=== PATIENT | female | born 1945 | race Caucasian/White ===

== ENCOUNTER 2017-09-16 13:00 | Outpatient (RCR) | payer MEDICARE, SELFPAY ==
--- NOTE | 2017-08-04 11:51 | HP.OTEVAL_ITS ---
Patient's Visit Information ARMANDO MACDONALD is a 71 year old F, referred to Occupational Therapy by Christiano Alcaraz MD,, with a diagnosis of intartic fx low end left rad.. Date of Evaluation: 08/03/17 Occupational Therapist: Darcy Harry, OLEGARIO/Lianet, CHT - Subjective Subjective: Pt states she suffered a fall Oct. 2 - pt had soft splint on for 2.5 weeks and followed with [facility] and returned to [facility] for care. Pt had cast removed Jul.28 and attends therapy to improve her ROM and strength. PT states she does have a high co-pay and would like to focus on a HEP. - Pain left wrist 4 Pain Intensity Range: 1, 6 - ROM Forearm: right WNL left WFL Wrist: right 70/65 left 30/25 Opposition: 7 ROM Comments: Left MCP IF60 right 90 PIP 110 left -20/80 DIP 70 left 35. left MCP MF 50 right 90 PIP 110 left -20/80 DIP 75 left 40. left MCP RF 40 right 95 PIP 110 left -15/90 DIP 80 left 35. left MCP LF 40 right 95 PIP 110 left -20/75 DIP 75 left 50 - Strength Assistant Professor Of Religion: right 55# left 5# Lateral Pinch: right 8# left trace Tripod Pinch: right 6# left trace - Edema PIP: right 5.0 left 6.3 Proximal Phalanx: right 5.8 left 3.5 - Sensation Thumb: right 3.22 right 2.83 Index: right 2.83 right 2.83 Middle: right 3.22 right 2.8 Ring: right 2.83 right 2.8 Little: right 2.83 right 3.22 - Hand/Wrist Evaluation Total Score of Pain & Functional Sections: 56 - Goals Goal:: pt will demo a increase in Left operations planner to greater than 35# to increase ind. with BADLs and IADLS. Goal:: Pt will demo a increase in left wrist flex by 20 degrees to increase her ind with BADlS by d/c. pt will demo increase in the ability to form a composite fist for pt to ind. perform dressing, meal prep tasks by d/c Goal:: pt will report pain no greater than 2/10 with use of left hand for all BADLS by D/C Goal:: pt will demo a increase in left Fine Motor skills to increase her ind. with dressing tasks by d/c Goal:: pt will demo a decrease in left hand edema by 1cm to increase pts ind. with BADLS and IADLS - Rehabilitation General Assessment: pt demo with edeam and stiff hand decreasing her ability to form a composite fist. Pt demo with limited wrist ROM and operations planner strength increasing her need of assistance with all BADLS and IADLS. Rehabilitation Potential: Good - Anticipated Interventions Anticipated Interventions: A/AAROM/PROM, Strengthening, Triggerpoint Release, Modalities - Visit Plan Frequency: 1x/Week Duration: 6 Weeks General Plan: initate PROM for wrist flex/ex- gave handouts- also on digi ROM, PROM and tendon gliding ex. pt ed. on contrast bath to decrease pts edema. pt demo understanding of HEP and will return in two weeks. will progress pts as able and will due to her high co-pay pt will be seen every 2-3 weeks to ensure she returns to PLOF TEXT: Thank you for the opportunity to evaluate your patient. For Medicare and Medicare HMO plans, please review the plan of care and approve it. It will need to be FAXED BACK to us at [phone] for Medicare purposes. Please let me know if there are questions or concerns regarding this plan of care. Physician Signature: Date:
--- NOTE | 2017-11-11 12:53 | HP.OT.NRP ---
HP - Discharge Summary - Patient Information ARMANDO MACDONALD was seen in my office for initial evaluation on 08/03/17. The following Plan of Care was established for this patient: Initial Frequency: 1x/Week Initial Duration: 6 Weeks Plan: pt having nerve conduction test next week- - Anticipated Interventions Anticipated Interventions: A/AAROM/PROM, Strengthening, Triggerpoint Release, Modalities This patient was last seen in our office 09/16/17. Pertinent comments regarding their Occupational therapy will appear below: pt was seen for 3 visits to ed. pt on a HEP to increase her wrist and digit ROM. pt had a $40 co-pay and wanted to limit her therapy sessions. I spoke with pt today she reports she is doing better- numbness/tingling are almost gone and hand is improving. pt D/C at this time with HEP At this point I will be discontinuing this patient from occupational therapy. I would be happy to see this patient again in the future if found appropriate by the physician. Thank you! Darcy Harry, OTR/L, CHT
== END 2017-09-16 19:00 | disposition home or self-care (01) ==
LOC: OT 13:00
PROVIDERS: Family Provider Family Medicine; PCP Family Medicine; Visit Provider Specialist
DX: S52.572D Other intraarticular fracture of lower end of left radius, subsequent encounter for closed fracture with routine healing (principal)
CPT/HCPCS: 97018; 97110; 97140; 97166; 97530

== ENCOUNTER → 2018-03-17 14:52 | Outpatient (CLI) | payer MEDICARE, SELFPAY ==
--- NOTE | 2018-03-17 14:55 | RAD_ITS ---
STUDY: X-RAY - ABDOMEN/PELVIS REASON FOR EXAM: Female, 72 years old. Left sided kidney stones. TECHNIQUE: 2 AP images of the abdomen and pelvis. COMPARISON: August 26, 2015 FINDINGS: There is an unremarkable bowel gas pattern. There is no demonstrated free abdominal air. The visualized liver, spleen and kidneys are grossly normal in size and morphology. There are calcified phleboliths in the pelvis. There are diffuse degenerative changes of the visualized lumbar spine. RAD/Abdomen Single View IMPRESSION: No renal calculus identified. Electronically Signed: Yanni Camarena MD at 21:43 EDT Tel , Service support ,
== END ==
PROVIDERS: Family Provider Family Medicine; PCP Family Medicine; Visit Provider Urology
DX: Z87.442 Personal history of urinary calculi (principal); R82.99 Other abnormal findings in urine
CPT/HCPCS: 74018

== ENCOUNTER → 2018-03-17 18:53 | Outpatient (CLI) | payer MEDICARE, SELFPAY | PROVIDERS: Visit Provider Urology | DX: R82.99 Other abnormal findings in urine (principal) | CPT/HCPCS: 87086; 87088 ==

== ENCOUNTER → 2018-09-20 16:26 | Outpatient (CLI) | payer MEDICARE, SELFPAY ==
[2017-05-24 14:29] VITALS: BMI 29.2
== END ==
PROVIDERS: Referring Provider Nurse Practitioner Adult Health; Visit Provider Nurse Practitioner Adult Health
DX: R31.9 Hematuria, unspecified (principal)
CPT/HCPCS: 87077; 87086; 87088; 87186

== ENCOUNTER → 2018-10-27 07:33 | Outpatient (CLI) | payer MEDICARE, SELFPAY ==
--- NOTE | 2018-10-27 07:46 | CT_ITS ---
STUDY: CT ABDOMEN AND PELVIS WITHOUT CONTRAST REASON FOR EXAM: Female, 72 years old. Left flank pain. History of kidney stones. RADIATION DOSAGE (If Supplied By Facility): CTDIvol = ( 16.03 ) mGy, DLP = ( 800.75 ) mGycm TECHNIQUE: Transaxial images were obtained from the dome of the diaphragm to the symphysis pubis without oral contrast, and without intravenous contrast. Sagittal and coronal images were reconstructed. Individualized dose optimization techniques were used for this CT. COMPARISON: Comparison is made with prior study dated July 17, 2013. FINDINGS: The visualized lung bases are unremarkable. The visualized portions of the heart are within normal limits. There is a 2.8 cm x 3 cm cyst in the superior lateral portion of the right lobe of the liver. This is unchanged. There is a solitary gallstone. Normal spleen. Normal pancreas. Normal bilateral adrenal glands. Normal right kidney. Normal left kidney. Normal visualized stomach. Normal small intestine. There are multiple colonic diverticula consistent with diverticulosis. The appendix is visualized and appears normal. There is scattered atherosclerotic calcification of the abdominal aorta, without a demonstrated aneurysm. Normal inferior vena cava. There is borderline retroperitoneal lymphadenopathy with enlarged nodes no greater than 10mm in the short axis diameter. Normal urinary bladder. Normal abdominal wall. There are diffuse degenerative changes of the visualized lumbar spine. CT/Abdomen/Pelvis without Cont IMPRESSION: Stable cyst in the right lobe of the liver. Solitary gallstone. This is unchanged. Sigmoid diverticulosis. Electronically Signed: Jesus Billy, at 15:52 EST , Service support ,
== END ==
PROVIDERS: Family Provider Family Medicine; PCP Family Medicine; Referring Provider Nurse Practitioner Adult Health; Visit Provider Nurse Practitioner Adult Health
DX: R31.9 Hematuria, unspecified (principal)
CPT/HCPCS: 74176

== ENCOUNTER → 2018-12-26 17:19 | Outpatient (CLI) | payer MEDICARE, SELFPAY ==
[2017-05-24 14:29] VITALS: BMI 29.2
== END ==
PROVIDERS: Family Provider Family Medicine; PCP Family Medicine; Referring Provider Urology; Visit Provider Urology
DX: R31.9 Hematuria, unspecified (principal)
CPT/HCPCS: 87086; 87088

== ENCOUNTER → 2020-05-23 | Outpatient (CLI) | payer MEDICARE, SELFPAY ==
[2017-05-24 14:29] VITALS: BMI 29.2
== END | disposition home or self-care (01) ==
LOC: LABSPEC 15:39
PROVIDERS: PCP Family Medicine; Referring Provider Urology; Visit Provider Urology
DX: R31.29 Other microscopic hematuria (principal)
CPT/HCPCS: 87077; 87086; 87088; 87186

== ENCOUNTER → 2020-08-06 11:49 | Outpatient (CLI) | payer MEDICARE, SELFPAY ==
[2017-05-24 14:29] VITALS: BMI 29.2
--- NOTE | 2020-08-06 11:55 | RAD_ITS ---
STUDY: X-RAY - ABDOMEN/PELVIS REASON FOR EXAM: Female, 74 years old. Left sided pain. History of kidney stones. TECHNIQUE: Two AP supine views of the abdomen and pelvis. COMPARISON: CT of the abdomen and pelvis, 10/27/2018. FINDINGS: Normal visualized lung bases. There is an unremarkable bowel gas pattern. There is no demonstrated free abdominal air. The visualized liver, spleen and kidneys are grossly normal in size and morphology. There is a vague rounded calcific density in right upper quadrant thought to correlate with the gallstone seen on CT. There is no evidence of renal or ureteral calculi. Stable left-sided phleboliths. Stable degenerative changes of the lumbar spine. RAD/Abdomen Single View IMPRESSION: 1. No evidence of renal calculi or other acute intra-abdominal process. 2. Stable gallstone. Electronically Signed: Cole Campos DO at 17:33 EST Tel [phone], Service support ,
== END ==
PROVIDERS: PCP Family Medicine; Referring Provider Nurse Practitioner Adult Health; Visit Provider Nurse Practitioner Adult Health
DX: N20.0 Calculus of kidney (principal); N30.21 Other chronic cystitis with hematuria
CPT/HCPCS: 74018

== ENCOUNTER → 2022-05-22 | Outpatient (CLI) | payer MEDICARE, SELFPAY ==
--- NOTE | 2022-05-22 07:30 | CT_ITS ---
STUDY: CT LEFTLOWER EXTREMITY WITHOUT CONTRAST REASON FOR EXAM: Female, 76 years old. PREOP left knee surgical planning, osteoarthritis. RADIATION DOSAGE (If Supplied By Facility): CTDIvol = ( 19.18 ) mGy, DLP = ( 1218.02 ) mGycm TECHNIQUE: Thin section transaxial imaging of the ankle was obtained, with sagittal and coronal reconstructed images. Individualized dose optimization techniques were used for this CT. COMPARISON: None. Hip findings: Normal femoral head, neck, intertrochanteric region and visualized proximal femur. Normal acetabulum. Normal hip joint. Normal visualized superior and inferior pubic rami and ischial tuberosities. Moderate to severe degenerative narrowing of the pubic symphysis with osteoarthritic changes. Normal visualized iliac wing, sacroiliac joint, and sacral ala. Rectosigmoid diverticulosis partially visualized in the intrapelvic region. There are no demonstrated fractures of the left lower extremity. There is no evidence of avascular necrosis. Knee findings: There is severe narrowing in the medial compartment and moderate secondary osteoarthritis and peripheral bulky osteophyte formation. Mild narrowing and peripheral osteophyte formation is seen in the lateral compartment. There is moderate to severe narrowing of the patellofemoral articulation as well with bulky osteophytes on both sides of the articulation. A small knee joint effusion is present. A small loose body is also seen in the suprapatellar region of the joint space. Normal proximal tibiofibular articulation. The quadriceps tendon is grossly normal. The patellar tendon is grossly normal. Normal Hoffa''s fat pad. The soft tissues are unremarkable. Ankle findings: Normal visualized distal tibia and fibula. Normal tibiotalar articulation and talar dome. Normal talus, calcaneus, navicular and cuboid tarsal bones. Normal subtalar, talonavicular and calcaneocuboid articulations. Small plantar calcaneal spur noted. Normal navicular-cuneiform, cuneiform tarsal bones and intercuneiform articulations. Normal tarsometatarsal articulations and visualized metatarsi. The soft tissue structures are grossly normal. CT/Extremity Lower without Contra IMPRESSION: 1. Severe DJD in the medial compartment of the knee 2. Moderate DJD of the patellofemoral compartment 3. There are no demonstrated fractures of the left lower extremity. There is no evidence of avascular necrosis. Electronically Signed: Gilberto Yates MD at 10:54 EDT ,
== END | disposition home or self-care (01) ==
LOC: CT 07:28
PROVIDERS: PCP Family Medicine; Referring Provider Specialist; Visit Provider Specialist
DX: M17.32 Unilateral post-traumatic osteoarthritis, left knee (principal); M25.562 Pain in left knee
CPT/HCPCS: 73700

== ENCOUNTER 2022-06-03 06:03 | Day surgery (SDC) | payer MEDICARE, SELFPAY ==
--- NOTE | 2022-05-18 22:00 | PCM.HP.BLA ---
History and Physical History and Physical [facility], [place] Patient Name: Irasema Brink : 1945 From:? ISABEL ANTONY PA-C? DATE OF SURGERY:? 06/03/2022 SCHEDULED PROCEDURE: left total knee arthroplasty HISTORY OF PRESENT ILLNESS: Preoperative history and physical exam was performed on May 18, 2022.? This is a 76-year-old female who has had ongoing pain since 2018 with her left knee.? Patient's pain has been intermittent, aching, sharp, stabbing.? She has had previous meniscus tear treated with arthroscopic surgery in 2005.? She has increased pain with going up and down stairs, sitting, walking.? She has difficulty with walking on uneven surfaces.? Patient has noted difficulty with accomplishing activities of daily living including shopping secondary to the pain.? She has tripped/stumbled due to the knee pain.? She feels unsafe standing on ladders.? Patient has popping sensation in the knee.? She has tried previous rest, ice, heat, elevation with minimal relief.? She has tried previous Visco supplementation injection with relief in 2018.? She has attempted [id number] nonsteroidal anti-inflammatories including ibuprofen with some relief.? She has attempted knee sleeve without relief.? She has severe tricompartmental osteoarthritis with bony erosions on x-ray.? After failing conservative measures and discussing all treatment options, the patient does wish to proceed with a left total knee arthroplasty.? We are obtaining surgical clearance from the primary care provider Dr. Nicholas Alcaraz.? She currently denies any chest pain, short of breath, fevers chills or recent infections.? Patient has medical history pertinent for hypertension.? Patient denies previous history of DVT or pulmonary embolism.? Patient does have ampicillin listed allergy and we will undergo serum penicillin allergy testing preoperatively. REVIEW OF SYSTEMS: Review Of Systems: Constitutional: Reports difficulty sleepingDenies change in appetite, fever,or weight change. Cardiovasular: Reports heart murmur, but denies chest pain and irregular heartbeat. Respiratory: Denies cough, pneumonia, shortness of breath, tuberculosis and wheezing. Gastrointestinal: Denies constipation, diarrhea, heartburn, nausea, rectal itching, bloody stools and vomiting. Genitourinary: Denies incontinence. Musculoskeletal: Denies leg swelling, pain, trouble walking and weakness. Skin: Denies Raynaud's, history of shingles and tattoo. Neurological: Denies ambulatory dysfunction, dizziness, numbness/tingling and tremor. Psychiatric: Reports anxiety, but denies insomnia and stress. Hematologic/Lymphatic: Denies anemia, bleeding/bruising tendency and past transfusion. Reviewed, no changes. PAST MEDICAL HISTORY: Advance Care Plan: Other Directive, LIVING WILL Effective Date: 06/27/2018 Past Medical History: Medical Problems: High Blood Pressure, Hypercholesterolemia, Kidney Stones Accidents: LT Wrist FX - (05/2017) Surgical Hx: Colon Resection - (2013) Kidney Stones - 2001 & 2013 Cataract - (2015) ALSO 2020 LT Knee Arthroscopy - (2004) colonoscopy - 2014,2018,2021 Anesthesia Complications: None Assistive Devices: Hearing Aid Reviewed and updated. SOCIAL HISTORY: Social History: Marital: .Occupation: Retired.Work Status: Retired.Hand Dominance: Right-handed. Personal Habits:? Cigarette Use: Never Smoked Cigarettes.Smokeless Tobacco: Never Used Smokeless Tobacco.E-Cigarette Use: Never used.Alcohol: Denies use.Drug Use: Denies Use.Enjoy Exercising: Exercises 1-3 x/month. Reviewed, no changes. VITALS: Ht: 66 Wt: 183lb Wt k.009 BMI: 29.5 BP: 124/82 Pulse: 72 T: 96.4 T: 35.8C Pain Level: 1 O2SatR: 97 ALLERGIES: Prednisone Macrobid Cipro Bactrim Zocor Lipitor Lisinopril Ampicillin Hydrochlorothiazide Ampicillin? MEDICATIONS: Oxycodone HCL 5 mg 1-2 tab by mouth every 4 hours, Meloxicam 7.5 mg 1 by mouth twice a day with food, Zofran 4 mg 1-2 by mouth every 8 as needed nausea, Famotidine 20 mg 1 by mouth every day, Hydrochlorothiazide 12.5 mg mg 1 by mouth every day, Crestor 10 mg 1 by mouth every day, Aspirin 81 mg 1 by mouth every day, Calcium 1200 0695-8536 MG-Unit 1po qday, Losartan Potassium 50 mg 1po qday, Cranberry 250 mg 1po qday, Vitamin C Adult Gummies 125 mg 1po qday, Vitamin D 1000 Unit 1po qday, Zinc 50 mg 1po qday, Lorazepam 0.5 mg prn PRE-OP EXAM:? General appearance:NORMAL? ? ? Other: Eyes: Conjunctivae and lids: NORMAL? Pupils: ERR Ears, Nose, Mouth, and Throat: NORMAL? Other: Inspection of lips, teeth and gums: NORMAL? ?Other: Neck: Examination of neck: no masses noted. Respiratory: Assessment of respiratory effort: NORMAL? ?Other: ?Auscultation of lungs: clear to auscultation no wheezes, rhonchi or rales. Cardiovascular:? Auscultation of heart: regular rate and rhythm, no murmurs, gallops or rubs. PHYSICAL EXAMINATION: Patient does walk with an antalgic gait.? Left knee is without erythema or signs of infection.? Patient has mild effusion.? There is tenderness to palpation along the medial joint line.? Has varus deformity which only partially correctable.? Range of motion: Lacks 5 full extension to approximately 110 flexion with crepitus and increased pain.? Stable to anterior/posterior drawer exam. IMAGING STUDIES: Previous x-rays of the left knee reveal varus alignment with medial joint space narrowing, subchondral sclerosis, osteophyte formation consistent with severe stage IV tricompartmental osteoarthritis with bony erosions. IMPRESSION: 1.? Severe right knee osteoarthritis with varus deformity 2.? Hypertension 3.? Hypercholesterolemia 4.? History of kidney stones PLAN: I did discuss and review with the patient all treatment options including surgical versus nonsurgical options.? Patient does wish to proceed with the above-stated procedure.? Potential risks, benefits, and complications of the procedure were discussed in detail including but not limited to , infection, nerve and blood vessel damage, persistent pain, numbness, tingling, paresthesias, blood clot, pulmonary embolism, and requirement for possible further surgery.? The patient expressed full understanding and has no further questions for the doctor.? Patient does agree to proceed with the above-stated procedure and has signed the surgery consent form. We discussed the current risks associated with COVID 19.? This does include the risk of exposure while in the hospital.? Patient was reassured local hospitals have low infection rates and are taking all necessary precautions to avoid exposure to patients.? In addition, we discussed strategies that can be used to help limit exposure including those that limit the patient's time in the hospital.? Also using strategies to limit the patient's need for continued inpatient services after being discharged from the hospital.? Patient was notified that we will need to comply with any screening or testing the hospital wishes to perform or that surgery may be delayed for any positive results. This dictation was created using voice recognition software. Phonetic and/or grammatical errors may exist. ___? I have re-examined the patient.? There are no clinical changes since date of exam. ___? See progress notes for changes. ___? Dictated on admission Date: ? ? ?Time: Signature:
--- NOTE | 2022-05-22 07:34 | EKG12_ITS ---
Test Reason : PRE OP Blood Pressure : / mmHG Vent. Rate : 075 BPM Atrial Rate : 075 BPM P-R Int : 124 ms QRS Dur : 098 ms QT Int : 408 ms P-R-T Axes : 039 -41 048 degrees QTc Int : 455 ms Normal sinus rhythm Left axis deviation Septal infarct , age undetermined Abnormal ECG Confirmed by MAYO SOTO, FAUSTINO ([id number]), senior editor SUJIT DICKENS ([id number]) on 05/22/2022 10:41:21 AM Referred By: Christiano Alcaraz Confirmed By:FAUSTINO HUBER MD
[2022-05-22 08:21] LABS: Absolute Lymphocyte Count 1.92 X10^3/uL (0.83-4.51); Absolute Neutrophil Count 2.7 X10^3/uL (2.0-7.7); Basophil# 0.06 X10^3/uL; Basophil% 1.1 % (0-1); Eosinophil# 0.18 X10^3/uL; Eosinophils% 3.3 % (0-5); Hematocrit 36.7 % (37-47); Hemoglobin 11.8 g/dL (12.0-15.0); Lymphocyte # 1.92 X10^3/ul (0.83-4.51); Lymphocyte % 35.7 % (19-41); Mean Corp Hgb Conc 32.2 g/dL (32-36); Mean Corpuscular Volume 93.4 fL (81-99); Mean Platelet Vol. 9.9 fl (6.2-12.0); Monocyte# 0.52 X10^3/uL; Monocyte% 9.7 % (0-10); NRBC Flagged by Analyzer 0 % (0-5); Neutrophil # 2.68 X10^3/uL (2.7-7.7); Neutrophil % 49.8 % (47-70); Platelet Count 229 K/mm3 (150-450); RBC Distribution Width CV 13.3 % (11.6-14.6); RBC Distribution Width SD 46.1 fl (35.1-43.9); Red Blood Count 3.93 M/mm3 (4.2-5.4); White Blood Count 5.4 K/mm3 (4.4-11.0)
[2022-05-22 08:48] LABS: Anion Gap 5 (5-15); BUN 32 mg/dL (7-18); BUN/Creat Ratio 28.3 RATIO (10-20); Calcium,Total 9.6 mg/dL (8.5-10.1); Chloride 107 mmol/L (98-107); Creatinine, Serum 1.13 mg/dL (0.55-1.02); EST Glomerular Filtration Rate 50 mL/min (>60); Est Glom Filt Rate - Afr Amer 60 mL/min (>60); Glucose 103 mg/dL (74-106); Magnesium 2.1 mg/dL (1.6-2.6); Potassium 3.9 mmol/L (3.5-5.1); Sodium Level 141 mmol/L (136-145)
[2022-05-22 08:53] LABS: Albumin, Serum 3.5 g/dL (3.2-5.0)
[2022-06-03] VITALS (14 sets, daily range): BP systolic 107–188; BP diastolic 61–95; PULSE 59–94; RESP 16–18; TEMP 36.2–36.7; O2SAT 94–100; BMI 28.5
--- NOTE | 2022-06-03 | KNEE_PTH ---
PATIENT: ARMANDO MACDONALD LOC: [facility] [place] U#:[id number] AGE/SX: 76/F ROOM: RE06/03/[address]: Dr. Christiano Alcaraz MD : 1945 BED: DIS: 06/03/2022 SPEC #: [id number] RECD: 06/03/22 13:26 STATUS: DEE REBoris #: [id number] JACIEL: 06/03/22 00:[address]: Christiano Alcaraz DEPT: SURGICAL PATHOLOGY RECD BY: Sven Bryan ENTERED: 06/03/22 13:26 SP TYPE: TOTAL KNEE OTHR DR: Dr. Nicholas Alcaraz MD Tissues: Knee, NOS Procedures: Decalcification bone/plaque Surgery Specimen Level IV HEADER OPERATION: ERAS, total knee replacement robotic arm assist PRE-OP DIAGNOSIS: Varus alignment with medial joint space narrowing, subchondral sclerosis, osteophyte formation TISSUE SUBMITTED: Left knee debrided bone and tissue MICROSCOPIC DIAGNOSIS Left knee bone and tissue, total knee replacement/resection: Pieces of bone with degenerative osteoarthritic changes. A piece of cartilaginous tissue, dense fibroconnective tissue and mildly reactive synovial tissue. PERLA:nydia 06/08/2022 MICROSCOPIC DESCRIPTION Slides are reviewed. GROSS DESCRIPTION Received is one container designated left knee debrided bone and tissue. The specimen consists of multiple fragments of dumont-yellow bone measuring in aggregate 11 x 9 x 4 cm. Also in the specimen container is a piece of cartilaginous tissue measuring 6 x 0.6 x 0.6 cm. A number of bony fragments contain articular surfaces consistent with tibial plateau and femoral condyle and displaying prominent osteophyte formation, eburnation, and bone erosion. Property Disposal Manager sections are submitted in two cassettes as follows: 1 - cartilaginous tissue, 2 - bone after decalcification. / Peng 06/03/2022 TC:5 [facility]: [id number]
--- NOTE | 2022-06-03 06:50 | PCM.OPRPT ---
Report of Operation Date of Procedure: 06/03/22 Pre-Operative Diagnosis: Left knee primary osteoarthritis Post-Operative Diagnosis: Left knee primary osteoarthritis Surgery/Procedure Performed:: Left knee minimally invasive robotic assisted total knee replacement Description of Surgical Findings:: Stable knee with good patella tracking Surgeon: Christiano Alcaraz information technology associate: Pj Johnson Type of Anesthesia: Spinal Anesthesiologist: Ramsey Nichols Special Medications: 2 g Ancef, 1 g TXA at incision, 1 g TXA closure, 10 mg Decadron, joint cocktail (5 mg Duramorph, 30 mL of 0.5% Ropivicaine, 1000 units of epinephrine, 30 mg of Toradol) Specimen's removed: Bony cuts Estimated Blood Loss (mL): 50 Fluids Replaced: 700 mL crystalloid Description of Procedure: Implants used: 1. Reyna size 4 triathlon cruciate retaining distal femoral press-fit component 2. [place] size 5 press-fit tritanium tibial baseplate 3. Reyna X3 11 mm polyethylene 4. [place] X3 35 mm asymmetric patella Brief history operative indications: 76-year-old f with history of left knee osteoarthritis with radiographic findings with loss of joint space, osteophyte formation and subchondral sclerosis. Failed conservative measures as mentioned in the H&P. Discussion of total knee arthroplasty as well as risk and benefits were discussed the patient including but not limited to blood loss, DVTs, PEs, neurovascular damage, general risk of anesthesia including loss of life, and stiffness or instability were discussed with patient. Patient demonstrated understanding and was able to sign informed consent. Procedure: On the date of procedure patient's left lower extremity was marked in the preoperative area. The patient was then taken back to the operating room where the patient was placed on the table in the supine position. All bony prominences were identified a well-padded. Anesthesia assumed control of the C-spine and airway and remained controlled throughout the remainder of the procedure. A tourniquet was placed on the left upper thigh and the leg was prepped in a sterile fashion. The surgeon then scrubbed at this time .Upon reentering the room left lower extremity was draped in a standard orthopedic fashion. A timeout was then called and everyone agreed upon the side, the site, the procedure to be performed, patient's identity and antibiotics given. Esmarch bandage was used to exsanguinate the extremity and the tourniquet was placed up to 250 mmHg with the knee in flexion. A midline skin incision was made and sharp dissection was taken down through skin subcutaneous tissue and fat. The standard medial parapatellar incision was made and the patella was subluxed laterally. An Appropriate deep MCL release was done and the fat pad was resected. Our attention was then directed to the patella. The patella was everted and a flat resection was made. The knee was then flexed up in 2 femoral pins were placed inside the incision and 2 tibial pins were placed outside the incision in the medial tibia bicortically. Once this was completed the 2 checkpoints in the femur and tibia were placed. Knee was then flexed up and the bony landmarks were registered. Once this was completed knee was taken through range of motion and manually stressed allowing us to a plan for an appropriate tibial cut. The robotic arm was brought into the field sterilely and checkpoint and saw were registered. Based on the patient's deformity the tibial cut was made in 3 degrees varus. At this time the tensioner was then placed in the joint and ligament tension was checked at 90 degrees and full extension. Based on the patient's ligamentous tension appropriate adjustments were made to the operative plan and ligament releases were done. Once we were happy with our operative plan with balanced flexion and extension gaps our attention was directed to the femur. The robot was brought into the field sterilely and registered. Posterior condylar cuts, anterior chamfer cuts and anterior cuts were appropriately made for a size 4 femur. When these were completed the saws were switched out in the distal femoral and posterior chamfer cuts were made. Protecting the soft tissue throughout this time. A size 5 tibial base plate was selected. the knee was flexed to 90 degrees and the soft tissues and posterior osteophytes were removed from the joint. 40 cc of the periarticular injection was injected into the posterior medial corner of the joint. The appropriate trials were then placed on the femur and tibia. A trial polyethylene was trialed to ensure proper balancing and stability of the knee. The appropriate tibial internal rotation was then marked with a bovie. Our attention was then directed to the patella. The lug holes were drilled and the patella trial was placed. Patellar tracking was checked and deemed appropriate. Once we were happy lug holes were drilled for the femur and trial components were removed. the tibia was subluxed and pinned into place and the keel was punched and drilled appropriately. Final components were verified and opened, and cement was mixed in a vacuum. Bizzby Simplex cement was used. The wound was copiously irrigated with normal saline. When the cement was ready the components were impacted into place starting with the tibia, femur and finally cementing the patella. The trial poly component was placed and the knee was placed in full extension. All excess cement was removed in the process. Once the cement had cured the tracking, alignment and balance were verified and a size 11 mm CS polyethylene component was placed. Once the final components were placed a 3-minute dilute Betadine lavage was performed followed by an Irrisept lavage was performed and the wound was copiously irrigated with normal saline solution and the periarticular injection was given. The wound was closed in a layer hope fashion using #1 vicryl interrupted sutures for the arthrotomy, 2-0 interrupted Vicryl suture for the subcuticular layer and laurita for final skin closure. A sterile compressive dressing was then placed. The patient was then awakened from anesthesia, transferred to the rwabasso and transferred to the PACU for recovery. Post op plan DVT ppx: ASA 81mg BID, thigh high compression stockings Follow up: in office in 2 weeks for wound check PT: to start POD #0 at hospital, outpatient PT should be arranged. My physician lpn or medical assistant was a vital part of this case. He was important in appropriate retraction during the case, and protection of soft tissues during bony cuts. His intimate knowledge of the case and my steps aided in safe and expedient completion of the procedure as well as appropriate position of the leg during the case. He was also vital in assisting with closure under my direct supervision. Due to the complexity of this case robotic arm was used to assist in the surgery to improve accuracy and clinical outcomes. Complications No intraoperative complications Admit VTE Documentation VTE Present on Admission: No VTE Mechan Device Prophylaxis: SCD's and Thigh High ROBBIE Hose VTE Pharm Prophylaxis ordered?: Yes
[2022-06-03] MEDS: Lactated Ringers 1,000 ML 999 ML IV (07:03)
[2022-06-03] MEDS: Magnesium 1 GM over 15 mins IV (07:04)
[2022-06-03] MEDS: Celecoxib 200 MG Capsule 400 MG PO (07:05)
[2022-06-03] MEDS: Acetaminophen 500 MG Tablet 1000 MG PO (07:06)
[2022-06-03] MEDS: Gabapentin 600 MG Tablet PO (07:06)
[2022-06-03 07:30] LABS: Bedside Glucose 119 mg/dL (74-106)
[2022-06-03] MEDS: Lactated Ringers 1,000 ML 75 ML IV (08:42)
[2022-06-03] MEDS: Cefazolin 2 GM in 0.9% Normal Saline 100 ML IV (08:45)
[2022-06-03] MEDS: TXA 1000mg in NS100 100ml (IVPB at Incision) 660 MG IV (08:55)
[2022-06-03] MEDS: TXA 1000mg in NS100 100ml (IVPB at Closure) 660 MG IV (09:55)
[2022-06-03] MEDS: Lactated Ringers 1,000 ML 125 ML IV (10:46)
--- NOTE | 2022-06-03 10:50 | RAD_ITS ---
STUDY: X-RAY - LEFT KNEE REASON FOR EXAM: Female, 76 years old. tka -- in PACU TECHNIQUE: 2 view(s) of the knee. COMPARISON: None. FINDINGS: Normal visualized distal femur. Normal visualized proximal tibia and fibula. Normal proximal tibiofibular articulation. The patient is status post total knee replacement. There is good alignment. Postoperative soft tissue changes. RAD/Knee 1 or 2 Views IMPRESSION: Status post total knee replacement. There is good alignment. Postoperative soft tissue changes. Electronically Signed: Jesus Billy MD at 14:55 EDT ,
[2022-06-03] MEDS: Cefazolin 1 GM/50 ML BAG IV (15:00)
[2022-06-03] MEDS: Ondansetron 4 MG/2 ML Vial IV (15:38)
== END 2022-06-03 16:42 | disposition home or self-care (01) ==
LOC: SDC 06:06 → AC 06:07
PROVIDERS: Anesthesiology; PCP Family Medicine; Referring Provider Specialist; Visit Provider Specialist
PROC: 0SRD0JZ Replacement of Left Knee Joint with Synthetic Substitute, Open Approach (ICD-10-PCS; CPT 27447; principal; 2022-06-03 08:15)
DX: M17.12 Unilateral primary osteoarthritis, left knee (principal); I10 Essential (primary) hypertension; E78.00 Pure hypercholesterolemia, unspecified; Z78.0 Asymptomatic menopausal state; Z79.82 Long term (current) use of aspirin; Z79.899 Other long term (current) drug therapy; Z79.1 Long term (current) use of non-steroidal anti-inflammatories (NSAID)
CPT/HCPCS: 27447; S2900; 64445; 01402; 36415; 73560; 80048; 82040; 82962; 83735; 85025; 87081; 88305; 88311; 93005; 97162; C1776; J7120; J2405; J3475

== ENCOUNTER → 2022-09-14 | Outpatient (CLI) | payer MEDICARE, SELFPAY | END | disposition home or self-care (01) | LOC: LABSPEC 16:27 | PROVIDERS: Referring Provider Urology; Visit Provider Urology | DX: R31.9 Hematuria, unspecified (principal) | CPT/HCPCS: 87086; 87088; 87186 ==

== ENCOUNTER → 2022-09-17 | Outpatient (CLI) | payer MEDICARE, SELFPAY ==
--- NOTE | 2022-09-17 14:34 | CT_ITS ---
STUDY: CT ABDOMEN AND PELVIS WITHOUT CONTRAST REASON FOR EXAM: Female, 76 years old. GROSS HEMATURIA. Left flank pain. UTI. RADIATION DOSAGE (If Supplied By Facility): CTDIvol = ( 8.80 ) mGy, DLP = ( 441.94 ) mGycm TECHNIQUE: Transaxial images were obtained from the dome of the diaphragm to the symphysis pubis without oral contrast, and without intravenous contrast. Sagittal and coronal images were reconstructed. Individualized dose optimization techniques were used for this CT. COMPARISON: Comparison is made with prior study of 10/27/2018. FINDINGS: The visualized lung bases are unremarkable. The visualized portions of the heart are within normal limits. The previously seen cyst in the superior lateral portion of the right lobe of liver is decreased in size. It presently measures 1.2 cm. There is a 2 cm x 1.5 cm cyst in the region of the gallbladder fossa. There is a solitary gallstone. Normal spleen. Normal pancreas. Normal bilateral adrenal glands. Normal right kidney. Normal left kidney. Normal visualized stomach. Normal small intestine. There are multiple colonic diverticula consistent with diverticulosis. The appendix is visualized and appears normal. Normal abdominal aorta. Normal inferior vena cava. There is borderline retroperitoneal lymphadenopathy with enlarged nodes no greater than 10mm in the short axis diameter. Normal urinary bladder. 2 cm cyst in the left ovary. Normal abdominal wall. There are diffuse degenerative changes of the visualized lumbar spine. CT/Abdomen/Pelvis without Cont IMPRESSION: Stable examination. Electronically Signed: Jesus Billy MD at 15:31 EST ,
== END | disposition home or self-care (01) ==
LOC: CT 14:32
PROVIDERS: PCP Family Medicine; Referring Provider Urology; Visit Provider Urology
DX: R31.0 Gross hematuria (principal)
CPT/HCPCS: 74176

== ENCOUNTER → 2022-09-29 | Outpatient (CLI) | payer MEDICARE, SELFPAY | END | disposition home or self-care (01) | LOC: LABSPEC 16:43 | PROVIDERS: PCP Family Medicine; Visit Provider Urology | DX: R31.0 Gross hematuria (principal) | CPT/HCPCS: 87077; 87086; 87088; 87186 ==

== ENCOUNTER → 2023-01-12 | Outpatient (CLI) | payer MEDICARE, SELFPAY | END | disposition home or self-care (01) | LOC: LABSPEC 16:54 | PROVIDERS: PCP Family Medicine; Referring Provider Urology; Visit Provider Urology | DX: N30.00 Acute cystitis without hematuria (principal) | CPT/HCPCS: 87086; 87088; 87186 ==

== ENCOUNTER 2023-07-12 12:21 | Outpatient (CLI) | payer MEDICARE, SELFPAY | END 2023-07-12 23:59 | disposition home or self-care (01) | LOC: LABSPEC 12:23 | PROVIDERS: PCP Family Medicine; Referring Provider Nurse Practitioner; Visit Provider Nurse Practitioner | DX: N30.20 Other chronic cystitis without hematuria (principal); Z87.440 Personal history of urinary (tract) infections | CPT/HCPCS: 87077; 87086; 87088; 87186 ==

== ENCOUNTER → 2025-07-17 | Outpatient (CLI) | payer MEDICARE, SELFPAY ==
--- OUTSIDE RECORDS SUMMARY | 2025-07-17 18:30 | XMS RPT_ITS | CCD ---
Author Organization 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 Role Phone Elizabeth Rivera Unavailable Nicholas Angelo Primary Care Provider ePtey SOTO, Nicholas Pascual Primary Care Provider Petey SOTO, Nicholas Pascual Primary Care Provider Petey SOTO, Nicholas Pascual Primary Care Provider Amado Angelorell Primary Care Unavailable Palestine, Gracie Attending Unavailable Palestine, Gracie Referring Unavailable Ayse, Juan Calros Attending Unavailable Ayse, Juan Carlos Referring Unavailable Ayse, Juan Carlos Attending Unavailable Ayse, Juan Carlos Referring Unavailable Petey, Nicholas Primary Care Unavailable Petey, Nicholas Primary Care Unavailable Ayse, Juan Carlos Attending Unavailable Ayse, Juan Carlos Referring Unavailable Petey, Nicholas Primary Care Unavailable Ayse, Juan Carlos Attending Unavailable BRIDENTHAL, MELISSA Attending Unavailable PETEY, NICHOLAS Primary Care Unavailable BRIDENTHAL, MELISSA Attending Unavailable BRIDENTHAL, MELISSA Referring Unavailable PETEY, NICHOLAS Primary Care Unavailable BRIDENTHAL, MELISSA Attending Unavailable BRIDENTHAL, MELISSA Referring Unavailable PETEY, NICHOLAS Primary Care Unavailable BRIDENTHAL, MELISSA Attending Unavailable PETEY, NICHOLAS Primary Care Unavailable Allergies Allergy Classification Reported Allergen(s) Allergy Type Date of Onset Reaction(s) Facility Dihydrofolate Reductase Inhibitors (antibiotic) (1 source) Trimethoprim Drug Allergy 05-24-20 17 [facility] HMG-CoA Reductase Inhibitors (statins) (1 source) atorvastatin Drug Allergy 05-14-20 15 Other [facility] Nitrofurantoin (1 source) Nitrofurantoin Drug Allergy 05-14-20 15 Shortness of breath [facility] Penicillins (antibiotic) (1 source) Ampicillin Drug Allergy 09-01-19 20 Shortness of breath [facility] Phenylephrine (2 sources) Phenylephrine Drug Allergy 05-24-20 17 Palpitations [facility] Quinolones (antibiotic) (1 source) Ciprofloxacin Drug Allergy 05-14-20 15 Palpitations [facility] (20 sources) Ampicillin Drug Allergy 09-01-19 20 Palpitations, Shortness of breath [facility] [place] (20 sources) atorvastatin Drug Allergy 05-14-20 15 Other (See Comments), Other [facility] Work Phone: (20 sources) Ciprofloxacin Drug Allergy 05-14-20 15 Palpitations [facility] Work Phone: (7 sources) Lisinopril Drug Allergy 02-01-20 18 Other (See Comments) [facility] Work Phone: (20 sources) Nitrofurantoin Drug Allergy 05-14-20 15 Shortness Of Breath [facility] Work Phone: (7 sources) predniSONE Drug Allergy 05-14-20 15 Swelling [facility] Work Phone: (7 sources) Simvastatin Drug Allergy 05-14-20 15 Other (See Comments) [facility] Work Phone: (12 sources) Sulfamethoxazole / Trimethoprim Drug Allergy 05-14-20 15 Rash [facility] Work Phone: (12 sources) Pseudoephedrine-Harsha taminophen Propensity to adverse reactions to drug 05-14-20 15 Palpitations [facility] Work Phone: (6 sources) atorvastatin; Translations: [atorvastatin calcium] Drug Allergy 05-24-20 17 Chest tightness [facility] (6 sources) Ciprofloxacin; Translations: [ciprofloxacin HCl] Drug Allergy 05-24-20 17 heart palpitations [facility] (6 sources) Pseudoephedrine; Translations: [pseudoephedrine HCl] Drug Allergy 05-24-20 17 palpitations [facility] (5 sources) Sulfamethoxazole Drug Allergy 05-24-20 17 [facility] (20 sources) Trimethoprim Drug Allergy 05-24-20 17 [facility] (5 sources) SINUS MED; Translations: [SINUS MED] Propensity to adverse reactions 05-24-20 17 Other [facility] (20 sources) Lisinopril Propensity to adverse reactions 02-01-20 18 Other [facility] (20 sources) Phenylephrine Drug Allergy 05-24-20 17 Palpitations [facility] (20 sources) Prednisone Propensity to adverse reactions 05-14-20 15 Swelling [facility] (20 sources) Simvastatin Propensity to adverse reactions 05-14-20 15 Other [facility] (20 sources) Sulfamethoxazole Allergy to substance 05-24-20 17 Hives [facility] Work Phone: (18 sources) Phenylephrine Drug Allergy 05-24-20 17 Palpitations [facility] (1 source) Ampicillin Drug Allergy 06-03-20 [facility] (1 source) Lisinopril Drug Allergy 06-03-20 [facility] (1 source) Nitrofurantoin Drug Allergy 06-03-20 [facility] (1 source) predniSONE Drug Allergy 06-03-20 [facility] (1 source) Simvastatin Drug Allergy 06-03-20 [facility] (1 source) Sulfamethoxazole Drug Allergy 06-03-20 [facility] (1 source) Trimethoprim Drug Allergy 06-03-20 [facility] Medications Current Medications Medication Drug Class(es) Dates Sig (Normalized) Sig (Original) acetaminophen 325 mg / oxyCODONE hydrochloride 5 mg oral tablet (2 sources) Opioid Agonist Start: 02-25-2023 End: 03-02-2023 take 1 tablet by mouth every six hours as needed for pain oxyCODONE-acetami nophen (Percocet) 5-325 MG tablet Indications: Benign neoplasm of colon, unspecified Take 1 tablet by mouth every 6 hours as needed for severe pain (7-10) for up to 5 days. 10 tablet 0 02/25/2023 03/02/2023 Active ascorbic acid 250 mg oral tablet (20 sources) Vitamin C Start: 05-19-2022 take 1 tablet by mouth once daily Ascorbic Acid (Vitamin C) (Vitamin C) 250 mg Tablet Active 250 MG PO DAILY May 18, 2022 11:00pm aspirin 81 mg chewable tablet (20 sources) Platelet Aggregation Inhibitor, Nonsteroidal Anti-inflammatory Drug Start: 12-31-2013 take 81 mg by mouth once daily Aspirin Active 81 MG PO DAILY@08 December 30, 2013 11:00pm calcium carbonate 1500 mg / cholecalciferol 0.01 mg oral tablet (5 sources) Vitamin D Start: 05-19-2022 take 1 tablet by mouth once daily Calcium Carbonate-Vitamin D3 (Calcium 600 + D(3)) 600 mg-10 mcg (400 unit) Tablet Active 1 TABLET PO DAILY May 18, 2022 11:00pm Calcium Carbonate-Vit D-Min (CALCIUM 1200 PO) (2 sources) Calcium Carbonate-Vit D-Min (CALCIUM 1200 PO) Indications: (two 600 mg tablests) Take 1 capsule by mouth daily 0 Active CALCIUM CARBONATE-VIT D-MIN PO (20 sources) take 1 capsule by mouth once in the morning CALCIUM CARBONATE-VIT D-MIN PO Take 1 capsule by mouth in the morning. Active take 1 capsule by mo uth once in the morning CALCIUM CARBONATE-VIT D-MIN PO Take 1 capsule by mouth in the morning. 0 Active cephalexin 500 mg oral capsule (1 source) Cephalosporin Antibacterial Start: 08-26-2022 End: 09-02-2022 cephalexin (Keflex) 500 MG capsule Indications: Acute cystitis without hematuria Take 1 capsule (500 mg) by mouth in the morning and 1 capsule (500 mg) at noon and 1 capsule (500 mg) in the evening and 1 capsule (500 mg) before bedtime. Do all this for 7 days. 28 capsule 0 08/26/2022 09/02/2022 Active cholecalciferol 0.025 mg oral tablet (5 sources) Vitamin D Start: 05-19-2022 take 1 tablet by mouth once daily Cholecalciferol (Vitamin D3) (Vitamin D3) 25 mcg (1,000 unit) Tablet Active 25 MCG PO DAILY May 18, 2022 11:00pm Cranberry preparation (5 sources) Non-Standardized Food Allergenic Extract, Non-Standardized Plant Allergenic Extract Start: 05-19-2022 take 4200 mg by mouth once daily Cranberry Active 4200 MG PO DAILY May 18, 2022 11:00pm administer with a meal Start: 05-19-2022 take 4200 mg by mout h once daily Cranberry Active 4200 MG PO DAILY May 19, 2022 12:00am administer with a meal Cranberry-Cholecalciferol 42 00-500 MG-UNIT CAPS (2 sources) Cranberry-Cholec alciferol 4200-500 MG-UNIT CAPS Take by mouth 0 Active Cranberry-Cholecalciferol 42 00-500 MG-UNIT capsule (20 sources) Cranberry-Cholec alciferol 4200-500 MG-UNIT capsule Take by mouth every morning (before breakfast). Active Cranberry-Cholec alciferol 4200-500 MG-UNIT capsule Take by mouth every morning (before breakfast). 0 Active Cranberry-Cholec alciferol 4200-500 MG-UNIT capsule Take by mouth. 0 Active Estriol (20 sources) Estriol 10 % cre am Twice a week Active Estriol 10 % cre am Twice a week 0 Active ferrous sulfate 325 mg delayed release oral tablet (14 sources) Start: 12-09-2022 End: 04-08-2023 take 1 tablet by mouth once daily ferrous sulfate 325 (65 Fe) MG EC tablet Indications: Iron deficiency TAKE 1 TABLET (325 MG) BY MOUTH DAILY. DO NOT CRUSH, CHEW, OR SPLIT. 90 tablet 1 12/09/2022 04/08/2023 Active Start: 07-20-2022 End: 11-17-2022 take 1 tablet by mouth once daily ferrous sulfate (Fe Tabs) 325 (65 Fe) MG EC tablet Indications: Iron deficiency Take 1 tablet (325 mg) by mouth daily. Do not crush, chew, or split. 30 tablet 3 07/20/2022 11/17/2022 Active Start: 06-03-2022 take 325 mg by mouth once vivek y Ferrous Sulfate Active 325 MG PO DAILY June 02, 2022 11:00pm folic acid 1 mg oral tablet (4 sources) Start: 06-03-2022 take 1 mg by mouth once daily Folic Acid Active 1 MG PO DAILY June 02, 2022 11:00pm hydroCHLOROthiazide 12.5 mg oral tablet (20 sources) Thiazide Diuretic Start: 07-07-2022 End: 06-11-2025 take 1 tablet by mouth once daily hydroCHLOROthiazide 12.5 MG tablet Indications: Essential (primary) hypertension TAKE 1 TABLET BY MOUTH EVERY DAY 90 tablet 3 06/11/2025 Active Start: 06-24-2020 take 1 tablet by gilbert th once daily hydroCHLOROthiazide (HYDRODIURIL) 12.5 MG tablet Indications: Essential hypertension TAKE 1 TABLET BY MOUTH EVERY DAY 90 tablet 1 06/24/2020 Active Start: 07-03-2019 take 1 tablet by gilbert th once daily hydrochlorothiazide (HYDRODIURIL) 12.5 MG tablet Indications: Essential hypertension TAKE 1 TABLET BY MOUTH EVERY DAY 90 tablet 1 07/03/2019 Active Start: 06-22-2014 take 12.5 mg by mout h once daily Hydrochlorothiazide Active 12.5 MG PO DAILY June 21, 2014 11:00pm LORazepam 0.5 mg oral tablet (20 sources) Benzodiazepine Start: 01-05-2023 End: 07-24-2024 take 1 tablet by mouth three times daily as needed for anxiety LORazepam (Ativan) 0.5 MG tablet Indications: Anxiety Take 1 tablet (0.5 mg) by mouth 3 times daily as needed for anxiety for up to 7 days. 21 tablet 07/17/2024 Active Start: 05-19-2022 take 1 tablet by gilbert th once daily Lorazepam (Ativan) 0.5 mg Tablet Active 0.5 MG PO DAILY May 18, 2022 11:00pm losartan potassium 50 mg oral tablet (20 sources) Angiotensin 2 Receptor Angie Start: 05-19-2022 End: 06-11-2025 take 1 tablet by mouth once daily in the morning losartan (Cozaar) 50 MG tablet Indications: Essential hypertension TAKE 1 TABLET BY MOUTH EVERY MORNING. 90 tablet 3 06/11/2025 Active Start: 06-24-2020 take 1 tablet by gilbert th once daily losartan (COZAAR) 50 MG tablet Indications: Essential hypertension TAKE 1 TABLET BY MOUTH EVERY DAY 90 tablet 1 06/24/2020 Active Start: 07-03-2019 take 1 tablet by gilbert th once daily losartan (COZAAR) 50 MG tablet Indications: Essential hypertension TAKE 1 TABLET BY MOUTH EVERY DAY 90 tablet 1 07/03/2019 Active rosuvastatin calcium 20 mg oral tablet (20 sources) HMG-CoA Reductase Inhibitor Start: 01-29-2023 End: 06-11-2025 take 1 tablet by mouth once daily rosuvastatin (Crestor) 20 MG tablet Indications: Hyperlipidemia, unspecified hyperlipidemia type TAKE 1 TABLET BY MOUTH EVERY DAY 90 tablet 3 06/11/2025 Active Start: 08-06-2022 take 1 tablet by gilbert th once daily rosuvastatin (Crestor) 20 MG tablet Indications: Hyperlipidemia, unspecified hyperlipidemia type TAKE 1 TABLET BY MOUTH EVERY DAY 90 tablet 1 08/06/2022 Active Start: 06-24-2020 take 1 tablet by gilebrt th once daily rosuvastatin (CRESTOR) 10 MG tablet Indications: Hyperlipidemia, unspecified hyperlipidemia type TAKE 1 TABLET BY MOUTH EVERY DAY 90 tablet 1 06/24/2020 Active Start: 07-03-2019 take 1 tablet by gilbert th once daily rosuvastatin (CRESTOR) 10 MG tablet Indications: Hyperlipidemia, unspecified hyperlipidemia type TAKE 1 TABLET BY MOUTH EVERY DAY 90 tablet 1 07/03/2019 Active Start: 12-31-2013 take 20 mg by mouth once daily Rosuvastatin Active 20 MG PO DAILY December 30, 2013 11:00pm Zinc (5 sources) Start: 05-19-2022 take 50 mg by mouth once daily Zinc Active 50 MG PO DAILY May 18, 2022 11:00pm Start: 05-19-2022 take 50 mg by mouth once daily Zinc Active 50 MG PO DAILY May 19, 2022 12:00am Completed/Discontinued Medications Medication Drug Class(es) Dates Sig (Normalized) Sig (Original) acetaminophen 500 mg oral tablet (2 sources) Start: 02-25-2023 End: 02-25-2023 acetaminophen (Tylenol) tablet 1,000 mg ALPRAZolam 0.25 mg disintegrating oral tablet (2 sources) Benzodiazepine Start: 02-25-2023 End: 02-25-2023 ALPRAZolam (Xanax) disintegrating tablet 0.25 mg calcium chloride 0.0014 meq/ml / potassium chloride 0.004 meq/ml / sodium chloride 0.103 meq/ml / sodium lactate 0.028 meq/ml injectable solution (2 sources) Start: 02-25-2023 End: 02-25-2023 lactated Ringer's infusion escitalopram 5 mg oral tablet (3 sources) Serotonin Reuptake Inhibitor Start: 01-12-2024 End: 02-14-2024 take 1 tablet by mouth once daily escitalopram (Lexapro) 5 MG tablet Indications: Anxiety Take 1 tablet (5 mg) by mouth daily. 30 tablet 01/12/2024 02/14/2024 Discontinued famotidine 20 mg oral tablet (2 sources) Histamine-2 Receptor Antagonist Start: 02-25-2023 End: 02-25-2023 famotidine (Pepcid) tablet 20 mg 1 ml HYDROmorphone hydrochloride 1 mg/ml cartridge (2 sources) Opioid Agonist Start: 02-25-2023 End: 02-25-2023 HYDROmorphone (Dilaudid) injection 0.5 mg ibandronic acid 150 mg oral tablet (8 sources) Bisphosphonate Start: 09-09-2022 End: 07-12-2023 take 1 tablet by mouth every 30 days in the morning ibandronate (Boniva) 150 MG tablet Take 1 tablet (150 mg) by mouth every 30 (thirty) days. Take in morning with full glass of water on an empty stomach. No food, drink, meds, or lying down for 60 minutes after. 3 tablet 3 09/09/2022 07/12/2023 Discontinued (Med list cleanup) Drug Treatment Unknown - unknown (1 source) No information available. 5 ml sodium chloride 9 mg/ml injection (2 sources) Start: 02-25-2023 End: 02-25-2023 sodium chloride 0.9% (NS) flush 5-40 mL Sutab [id number] MG tablet (5 sources) Start: 10-27-2023 End: 07-17-2024 Sutab [id number] MG tablet 10/27/2023 07/17/2024 Discontinued (Med list cleanup) Start: 10-27-2023 Sutab [id number] MG tablet 10/27/2023 Active zinc gluconate 50 mg oral tablet (4 sources) End: 07-12-2023 take 1 tablet by mouth once daily zinc gluconate 50 MG tablet Take 50 mg by mouth daily. 0 07/12/2023 Discontinued (Therapy completed) Problems Active Problems Problem Classification Problem Date Documented Date Episodic/Chronic Anxiety disorders (20 sources) Anxiety; Translations: [Anxiety disorder, unspecified] Onset: 01-07-2016 01-07-2016 Chronic Disorders of lipid metabolism (20 sources) Hyperlipidemia; Translations: [Hyperlipidemia, unspecified] Onset: 05-14-2015 05-14-2015 Chronic Essential hypertension (20 sources) Essential hypertension; Translations: [Essential (primary) hypertension] Onset: 05-08-2016 05-08-2016 Chronic Nutritional deficiencies (1 source) Iron deficiency; Translations: [Iron deficiency] Episodic Osteoarthritis (20 sources) Localized, primary osteoarthritis; Translations: [Primary osteoarthritis, unspecified site] Onset: 05-25-2022 06-07-2022 Chronic Osteoporosis (20 sources) Senile osteoporosis; Translations: [Age-related osteoporosis without current pathological fracture] Onset: 01-05-2023 Chronic Other aftercare (1 source) Surgical follow-up; Translations: [Encounter for follow-up examination after completed treatment for conditions other than malignant neoplasm] 03-15-2023 Episodic Other and unspecified benign neoplasm (2 sources) Benign neoplasm of colon; Translations: [Benign neoplasm of colon, unspecified] 02-25-2023 Episodic Other nutritional; endocrine; and metabolic disorders (2 sources) Body mass index 30+ - obesity; Translations: [Obesity (BMI 30-39.9)] Onset: 07-03-2019 07-03-2019 Chronic Other nutritional; endocrine; and metabolic disorders (13 sources) Obesity caused by energy imbalance; Translations: [Class 1 obesity due to excess calories with serious comorbidity and body mass index (BMI) of 30.0 to 30.9 in adult] Onset: 07-03-2019 07-17-2024 Chronic Other screening for suspected conditions (not mental disorders or infectious disease) (1 source) No current problems or disability 05-26-2017 Residual codes; unclassified (1 source) Acquired absence of other specified parts of digestive tract; Translations: [Other postprocedural status] 03-15-2023 Episodic Urinary tract infections (1 source) Other chronic cystitis without hematuria; Translations: [Other chronic cystitis without hematuria] Onset: 07-21-2023 Chronic Past or Other Problems Problem Classification Problem Date Documented Da te Episodic/Chronic Deficiency and other anemia (20 sources) Anemia; Translations: [Anemia, unspecified] Onset: 01-05-2023 Resolved: 01-08-2025 Episodic Deficiency and other anemia (2 sources) Anemia, unspecified; Translations: [Anemia, unspecified] Onset: 01-05-2023 Episodic Genitourinary symptoms and ill-defined conditions (20 sources) Blood in urine; Translations: [Hematuria, unspecified] Onset: 09-20-2022 Resolved: 07-17-2024 07-09-2023 Episodic Mood disorders (19 sources) Mood disorders Onset: 07-09-2023 07-09-2023 Other and unspecified benign neoplasm (20 sources) Adenomatous polyp of colon ; Translations: [Benign neoplasm of colon, unspecified] Onset: 02-01-2023 02-01-2023 Episodic Other nutritional; endocrine; and metabolic disorders (20 sources) Body mass index 25-29 - overweight; Translations: [Overweight] Onset: 07-03-2019 07-08-2022 Episodic Other screening for suspected conditions (not mental disorders or infectious disease) (20 sources) Patient encounter status; Translations: [Encounter for screening mammogram for malignant neoplasm of breast] Onset: 02-14-2024 07-12-2023 Episodic Residual codes; unclassified (2 sources) Menopause present; Translations: [Asymptomatic menopausal state] Episodic Urinary tract infections (20 sources) Acute cystitis; Translations: [Acute cystitis without hematuria] Onset: 08-26-2022 Resolved: 01-05-2023 08-26-2022 Episodic Results Test Name Value Interpretation Reference Range Facility 36on 06-11-2025 36 Rx sent. Follow up a s scheduled. [facility] DEXA BONE DENSITY AXIAL SKEL ETONo 01-17-2025 DEXA BONE DENSITY AXIAL SKELETON Patient Name: IRASEMA MACDONALD : 1945 Exam Date/Time: 01/17/2025 07:49 Procedure: DEXA BONE DENSITY AXIAL SKELETON Ordering Provider: ROY REBECCA Reason For Exam: osteoporosis DEXA BONE DENSITOMETRY: CLINICAL INDICATION: Osteoporosis screening COMPARISON: 09/08/2022 TECHNIQUE: Quantitative bone mineral densitometry of the hip and lumbar spine was performed with a dual energy x-ray observed absorptiometry device - HoloG5 Horizon W. Regions of interest were obtained through the left proximal femur and compared to the normal value of the young adult. Regions of interest were also obtained through the lumbar vertebrae with an average value determined and compared with the young adult. The measured bone density minus the bone density of the young normal reference divided by the reference standard deviation is expressed as the T score. Using the same formula adjusting the reference density and standard deviation for age and race determines the Z score. According to World Health Organization criteria: T-score of -1.0 or higher is normal. T-score between -1.0 and -2.5 is low bone density or osteopenia. T-score of -2.5 or lower is abnormally low, compatible with osteoporosis. T-score of -2.5 or less plus fragility fracture indicates "severe osteoporosis." FINDINGS: Spine: L1-L4 Density 1.12 g/cm2. T-score: 0.6 Z-score: 3.2 Comparison from prior examination:4.6 percent increase in BMD Hip: Femoral neck Density: 0.50 g/cm2. T-score: -3.1 Z-score: -1.0 Hip: Total hip Density: 0.71 g/cm2. T-score: -1.9 Z-score: 0.0 Comparison from prior examination:1.8 percent decrease in BMD IMPRESSION: Osteoporosis FRACTURE RISK: The estimated 10 year risk for a major osteoporosis-related fracture is 32 % and risk for hip fracture is 12 % (FRAX web version 3.08). The current National Osteoporosis Foundation Guide recommends pharmacologic treatment for patients with FRAX 10-year risk scores of > 20% for major osteoporotic fracture or > 3% for hip fracture, to reduce their fracture risk. FOLLOW-UP RECOMMENDATIONS: Patients with osteoporosis or or at high risk for fracture should have follow-up bone density tests. For Medicare patients, routine testing is allowed every 2 years. Patients who have low bone mass (T score -2.0 to -2.49), who are currently on treatment for low bone mass, or having risk factors for accelerated bone loss (glucocorticoids, aromatase inhibitors, etc.), consider repeat DXA in 1-2 years. Patients with osteopenia and no risk factors may consider follow-up every 3-5 years. Report Dictated on Electronically Signed By: Jalen Orellana MD Electronically Signed Date/Time: 01/17/2025 12:21 PM EDT [facility] DXA Skeletal system.axial Vi ews for bone densityon 01-17-2025 Osteoporosis FRACTURE RISK: The estimated 10 year risk for a major osteoporosis-related fracture is 32 % and risk for hip fracture is 12 % (FRAX web version 3.08). The current National Osteoporosis Foundation Guide recommends pharmacologic treatment for patients with FRAX 10-year risk scores of > 20% for major osteoporotic fracture or > 3% for hip fracture, to reduce their fracture risk. FOLLOW-UP RECOMMENDATIONS: Patients with osteoporosis or or at high risk for fracture should have follow-up bone density tests. For Medicare patients, routine testing is allowed every 2 years. Patients who have low bone mass (T score -2.0 to -2.49), who are currently on treatment for low bone mass, or having risk factors for accelerated bone loss (glucocorticoids, aromatase inhibitors, etc.), consider repeat DXA in 1-2 years. Patients with osteopenia and no risk factors may consider follow-up every 3-5 years. Report Dictated on Electronically Signed By: Jalen Orellana MD Electronically Signed Date/Time: 01/17/2025 12:21 PM [facility] 1945 [id number] Exam Date/Time: 01/17/2025 07:49 Procedure: DEXA BONE DENSITY AXIAL SKELETON Ordering Provider: ROY REBECCA Reason For Exam: osteoporosis DEXA BONE DENSITOMETRY: CLINICAL INDICATION: Osteoporosis screening COMPARISON: 09/08/2022 TECHNIQUE: Quantitative bone mineral densitometry of the hip and lumbar spine was performed with a dual energy x-ray observed absorptiometry device - HoloG5 Horizon W. Regions of interest were obtained through the left proximal femur and compared to the normal value of the young adult. Regions of interest were also obtained through the lumbar vertebrae with an average value determined and compared with the young adult. The measured bone density minus the bone density of the young normal reference divided by the reference standard deviation is expressed as the T score. Using the same formula adjusting the reference density and standard deviation for age and race determines the Z score. According to World Health Organization criteria: T-score of -1.0 or higher is normal. T-score between -1.0 and -2.5 is low bone density or osteopenia. T-score of -2.5 or lower is abnormally low, compatible with osteoporosis. T-score of -2.5 or less plus fragility fracture indicates "severe osteoporosis." FINDINGS: Spine: L1-L4 Density 1.12 g/cm2. T-score: 0.6 Z-score: 3.2 Comparison from prior examination:4.6 percent increase in BMD Hip: Femoral neck Density: 0.50 g/cm2. T-score: -3.1 Z-score: -1.0 Hip: Total hip Density: 0.71 g/cm2. T-score: -1.9 Z-score: 0.0 Comparison from prior examination:1.8 percent decrease in BMD [facility] Jalen Orellana MD - 01/17/2025 [facility] Name: [facility] 1945 [id number] Exam Date/Time: 01/17/2025 07:49 Procedure: DEXA BONE DENSITY AXIAL SKELETON Ordering Provider: ROY REBECCA Reason For Exam: osteoporosis DEXA BONE DENSITOMETRY: CLINICAL INDICATION: Osteoporosis screening COMPARISON: 09/08/2022 TECHNIQUE: Quantitative bone mineral densitometry of the hip and lumbar spine was performed with a dual energy x-ray observed absorptiometry device - HoloG5 Horizon W. Regions of interest were obtained through the left proximal femur and compared to the normal value of the young adult. Regions of interest were also obtained through the lumbar vertebrae with an average value determined and compared with the young adult. The measured bone density minus the bone density of the young normal reference divided by the reference standard deviation is expressed as the T score. Using the same formula adjusting the reference density and standard deviation for age and race determines the Z score. According to World Health Organization criteria: T-score of -1.0 or higher is normal. T-score between -1.0 and -2.5 is low bone density or osteopenia. T-score of -2.5 or lower is abnormally low, compatible with osteoporosis. T-score of -2.5 or less plus fragility fracture indicates "severe osteoporosis." FINDINGS: Spine: L1-L4 Density 1.12 g/cm2. T-score: 0.6 Z-score: 3.2 Comparison from prior examination:4.6 percent increase in BMD Hip: Femoral neck Density: 0.50 g/cm2. T-score: -3.1 Z-score: -1.0 Hip: Total hip Density: 0.71 g/cm2. T-score: -1.9 Z-score: 0.0 Comparison from prior examination:1.8 percent decrease in BMD IMPRESSION: Osteoporosis FRACTURE RISK: The estimated 10 year risk for a major osteoporosis-related fracture is 32 % and risk for hip fracture is 12 % (FRAX web version 3.08). The current National Osteoporosis Foundation Guide recommends pharmacologic treatment for patients with FRAX 10-year risk scores of > 20% for major osteoporotic fracture or > 3% for hip fracture, to reduce their fracture risk. FOLLOW-UP RECOMMENDATIONS: Patients with osteoporosis or or at high risk for fracture should have follow-up bone density tests. For Medicare patients, routine testing is allowed every 2 years. Patients who have low bone mass (T score -2.0 to -2.49), who are currently on treatment for low bone mass, or having risk factors for accelerated bone loss (glucocorticoids, aromatase inhibitors, etc.), consider repeat DXA in 1-2 years. Patients with osteopenia and no risk factors may consider follow-up every 3-5 years. Report Dictated on Electronically Signed By: Jalen Orellana MD Electronically Signed Date/Time: 01/17/2025 12:21 PM EDT [facility] Radiology Study observation (narrative) [facility] DXA Skeletal system.axial Vi ews for bone densityOrdered By: Jalen Orellana on 01-17-2025 [facility] Work Phone: Basic metabolic 1998 panelon 01-09-2025 Anion gap [Moles/Vol] 11 mmol/L [facility] Calcium [Mass/Vol] 9.7 mg/dL 8.6 - 10. 4 mg/dL [facility] Chloride [Moles/Vol] 103 mmol/L 98 - 11 0 mmol/L [facility] CO2 [Moles/Vol] 26 mmol/L 20 - 32 mmol/L [facility] Creatinine [Mass/Vol] 1.29 mg/dL High 0.60 - 1.00 mg/dL [facility] GFR/1.73 sq M.predicted among non-blacks MDRD (S/P/Bld) [Vol rate/Area] 43 mL/min/{1.73_m2} Low > OR = 60 mL/min/1.73m 2 [facility] Glucose [Mass/Vol] 96 mg/dL 65 - 99 mg/dL [facility] Comment on above: Fasting reference interval Interpretation and review of laboratory results Abnormal [facility] Potassium [Moles/Vol] 4.1 mmol/L 3.5 - 5.3 mmol/L [facility] Sodium [Moles/Vol] 140 mmol/L 135 - 146 mmol/L [facility] Urea nitrogen [Mass/Vol] 34 mg/dL High 7 - 25 mg/dL [facility] Urea nitrogen/Creatinine [Mass ratio] 26 mg/mg High [facility] 29on 01-08-2025 29 Addended by: MELISSA ROY on: 01/10/2025 08:31 AM Modules accepted: Level of Service [facility] 37on 01-08-2025 37 Call to schedule Bon e density screening--[facility] Scheduling at [phone] [facility] Office Visiton 01-08-2025 Follow-up visit [id number] Irasema Macdonald 1945 F Date Provider Department Center 01/08/2025 [id number] ROY [facility] Family History Problem Relation Age of Onset Diabetes Mother High Blood Pressure Mother Colon cancer Mother 89 High Blood Pressure Father Substance Abuse Father Breast cancer Sister 50 Stomach cancer Father's Brother 48 Family Status - Relation Status Age at Mother Father Sister Alive Father's Brother Alive Level of Service:13021 MS OFFICE/OUTPATIENT ESTABLISHED MOD MDM 30 MIN Reason for Visit and Comments: Health Maintenance [872] Medication Check [[id number]] - ?Medicare Advantage Annual Wellness Visit-SCHEDULED 07/18/25 ?Bone Density Scan-pended - SDOH/PHQ/ANAHY--COMPLETED -SENT VIA [facility] Progress Noteon 01-08-2025 Progress Note Check renal functioning. Maintain good blood pressure control. [facility] Progress Note Continue calcium and vitamin D. Patient currently not taking Boniva. Repeat Dexa [facility] Progress Note Controlled. Blood pressure 133/82. Continue losartan 50 mg daily and hydrochlorothiazide 12.5 mg daily [facility] Progress Note Controlled. Continue rosuvastatin 20 mg daily [facility] Progress Note 01/08/2025 Irasema Hatch [place] (: 1945) is a 79 y.o. female , Established patient, here for evaluation of the following chief complaint(s): Health Maintenance and Medication Check (? Medicare Advantage Annual Wellness Visit-SCHEDULED 07/18/25/? Bone Density Scan-pended/- SDOH/PHQ/ANAHY--COMPLETED -SENT VIA [facility]) ASSESSMENT/PLAN: 1. Essential (primary) hypertension Assessment & Plan: Controlled. Blood pressure 133/82. Continue losartan 50 mg daily and hydrochlorothiazide 12.5 mg daily Orders: - Basic metabolic panel 2. Mixed hyperlipidemia Assessment & Plan: Controlled. Continue rosuvastatin 20 mg daily Orders: - Basic metabolic panel 3. Decreased calculated glomerular filtration rate (GFR) Assessment & Plan: Check renal functioning. Maintain good blood pressure control. Orders: - Basic metabolic panel 4. Age-related osteoporosis without current pathological fracture Assessment & Plan: Continue calcium and vitamin D. Patient currently not taking Boniva. Repeat Dexa Orders: - DEXA bone density peripheral Follow up for with primary care provider as scheduled. SUBJECTIVE/OBJECTIVE: HPI - Irasema Macdonald (: 1945) is a 79 y.o. female , Established patient, here for the evaluation of the following chief complaint(s): Health Maintenance and Medication Check (? Medicare Advantage Annual Wellness Visit-SCHEDULED 07/18/25/? Bone Density Scan-pended/- SDOH/PHQ/ANAHY--COMPLETED -SENT VIA [facility]) Presents for med check. Reports everything is going well at home. Denies any acute concerns or complaints today. Has been working a lot out in the yard at home. Blood pressures have been good at home. Denies any AE of medication. Takes losartan and hydrochlorothiazide Hyperlipidemia- denies any AE of rosuvastatin. Will be due for cholesterol check next visit. Anxiety- reports pretty well controlled. Will occasionally need to take ativan. Osteoporosis- is due for her dexa scan this year. Is taking calcium and vit d. Decreased gfr- will check kidney functioning today. Has been stable. Current Medications[1] Review of Systems Constitutional: Negative. HENT: Negative. Respiratory: Negative. Cardiovascular: Negative. Gastrointestinal: Negative. Genitourinary: Negative. Neurological: Negative. Psychiatric/Behavioral: Negative for agitation, behavioral problems, decreased concentration, dysphoric mood, self-injury, sleep disturbance and suicidal ideas. The patient is nervous/anxious. Vitals: 01/08/25 0833 BP: 133/82 Pulse: 81 Resp: 20 Temp: 36.1 ?C (96.9 ?F) TempSrc: Infrared SpO2: 97% Weight: 186 lb (84.4 kg) Height: 5' 6" (1.676 m) Physical Exam Vitals reviewed. Constitutional: General: She is not in acute distress. Appearance: Normal appearance. She is not ill-appearing. HENT: Head: Normocephalic and atraumatic. Mouth/Throat: Mouth: Mucous membranes are moist. Pharynx: Oropharynx is clear. No posterior oropharyngeal erythema. Eyes: Conjunctiva/sclera: Conjunctivae normal. Neck: Vascular: No carotid bruit. Cardiovascular: Rate and Rhythm: Normal rate and regular rhythm. Pulses: Normal pulses. Heart sounds: Normal heart sounds. Pulmonary: Effort: Pulmonary effort is normal. Breath sounds: Normal breath sounds. Musculoskeletal: Right lower leg: No edema. Left lower leg: No edema. Lymphadenopathy: Cervical: No cervical adenopathy. Neurological: Mental Status: She is alert and oriented to person, place, and time. Psychiatric: Mood and Affect: Mood normal. Behavior: Behavior normal. Thought Content: Thought content normal. An electronic signature was used to authenticate this note. Melissa Roy APRN - [place] 01/08/2025 9:12 AM [1] Current Outpatient Medications Medication Sig Dispense Refill ascorbic acid (Vitamin C) 250 MG tablet Take 250 mg by mouth in the morning. aspirin 81 MG chewable tablet Chew 81 mg every morning (before breakfast). CALCIUM CARBONATE-VIT D-MIN PO Take 1 capsule by mouth in the morning. Cranberry-Cholecalcifer ol 4200-500 MG-UNIT capsule Take by mouth every morning (before breakfast). Estriol 10 % cream Twice a week hydroCHLOROthiazide 12.5 MG tablet TAKE 1 TABLET BY MOUTH EVERY DAY 90 tablet 1 LORazepam (Ativan) 0.5 MG tablet Take 1 tablet (0.5 mg) by mouth 3 times daily as needed for anxiety for up to 7 days. 21 tablet 0 losartan (Cozaar) 50 MG tablet TAKE 1 TABLET BY MOUTH EVERY MORNING. 90 tablet 1 rosuvastatin (Crestor) 20 MG tablet TAKE 1 TABLET BY MOUTH EVERY DAY 90 tablet 1 No current facility-administered medications for this visit. [facility] Progress Note Patient was identifi ed by name and Date of . Health Maintenance Due Topic Medicare Advantage Annual Wellness Visit-SCHEDULED 07/18/25 Bone Density Scan-pended SDOH/PHQ/ANAHY--COMPLETED -SENT VIA [facility] 36on 12-18-2024 36 Reviewed chart. Refi ll appropriate. RX sent. [facility] 36 Prescription Request : : HYDROCHLOROTHIAZIDE 12.5 MG TB ROSUVASTATIN CALCIUM 20 MG TAB : LOSARTAN POTASSIUM 50 MG TAB Last medication check: 07/17/24 Last physical exam: 07/17/24 Next scheduled appointment: 01/08/25 Last date of refill on this medication : HYDROCHLOROTHIAZIDE - 06/27/24 ( qty90 refill 1) ROSUVASTATIN - 06/27/24 ( qty 90 refill 1) : LOSARTAN 06/27/24 (qty 90 refill 1) [facility] DBT Breast - bilateral lettye maninder 09-11-2024 No mammographic evidence of malignancy. ASSESSMENT: Category 1 Negative RECOMMENDATION: Routine screening mammogram in 1 year. Bilateral CANCER RISK ASSESSMENT: This risk assessment is based on patient provided information collected in a risk survey taken at the time of this examination. LIFETIME BREAST CANCER RISK: Manuela 8: 4.23% - If greater than or equal to 20%, consider annual mammogram and annual screening Breast MRI or follow up in high risk clinic. Is the patient at elevated risk based on the HBOC criteria? Yes (Hereditary Breast and Ovarian Cancer) - If Yes, consider genetic counseling and testing with high risk follow up Is the patient at elevated risk based on the Milian Syndrome criteria? No - If Yes, consider genetic counseling and testing with high risk follow up. Report Dictated on Electronically Signed By: Seferino Kulkarni MD Electronically Signed Date/Time: 09/11/2024 11:57 AM [facility] Patient Name: IRASEMA MACDONALD : 1945 Exam Date/Time: 09/11/2024 10:34 Procedure: BI MAMMOGRAM SCREENING TOMOSYNTHESIS BILATERAL Ordering Provider: ROY REBECCA Reason For Exam: This exam was performed at [address] [facility] [id number] RISK ALERT: The Cancer Risk Assessment scores below the recommendation of this report contain an outcome above the normal risk range. PATIENT CANCER HISTORY: No Personal History of Cancer FAMILY CANCER HISTORY: Mother Colon Cancer age 89 Sister Breast Cancer age 50 Paternal Uncle Stomach Cancer age 48 Image views: 2D Bilateral CC and MLO views were acquired. 3D Bilateral CC and MLO views were acquired. Images were reviewed with CAD. Markings on images: BB's = Nipples; skin lesions Open [place] = Palpable Line = Scar COMPARISON: 2023; 2021 TISSUE DENSITY: BIRADS B - There are scattered areas of fibroglandular density. FINDINGS: No suspicious masses, architectural distortions or suspiciously clustered microcalcifications are identified. There are no significant changes when compared with prior studies. [facility] Seferino Kulkarni MD - 09/11/2024 [facility] Name: [facility]ALD : 1945 [id number] Exam Date/Time: 09/11/2024 10:34 Procedure: BI MAMMOGRAM SCREENING TOMOSYNTHESIS BILATERAL Ordering Provider: ROY REBECCA Reason For Exam: This exam was performed at [address] [facility] [id number] RISK ALERT: The Cancer Risk Assessment scores below the recommendation of this report contain an outcome above the normal risk range. PATIENT CANCER HISTORY: No Personal History of Cancer FAMILY CANCER HISTORY: Mother Colon Cancer age 89 Sister Breast Cancer age 50 Paternal Uncle Stomach Cancer age 48 Image views: 2D Bilateral CC and MLO views were acquired. 3D Bilateral CC and MLO views were acquired. Images were reviewed with CAD. Markings on images: BB's = Nipples; skin lesions Open [place] = Palpable Line = Scar COMPARISON: 2023; 2021 TISSUE DENSITY: BIRADS B - There are scattered areas of fibroglandular density. FINDINGS: No suspicious masses, architectural distortions or suspiciously clustered microcalcifications are identified. There are no significant changes when compared with prior studies. IMPRESSION: No mammographic evidence of malignancy. ASSESSMENT: Category 1 Negative RECOMMENDATION: Routine screening mammogram in 1 year. Bilateral CANCER RISK ASSESSMENT: This risk assessment is based on patient provided information collected in a risk survey taken at the time of this examination. LIFETIME BREAST CANCER RISK: [place] 8: 4.23% - If greater than or equal to 20%, consider annual mammogram and annual screening Breast MRI or follow up in high risk clinic. Is the patient at elevated risk based on the HBOC criteria? Yes (Hereditary Breast and Ovarian Cancer) - If Yes, consider genetic counseling and testing with high risk follow up Is the patient at elevated risk based on the Milian Syndrome criteria? No - If Yes, consider genetic counseling and testing with high risk follow up. Report Dictated on Electronically Signed By: Seferino Kulkarni MD Electronically Signed Date/Time: 09/11/2024 11:57 AM EST [facility] Study observation (narrative) [facility] DBT Breast - bilateral scree ningOrdered By: Seferino Kulkarni on 09-11-2024 [facility] Work Phone: 37on 07-17-2024 37 Personalized Preventative Plan for Irasema Macdonald - 07/17/2024 Medicare offers a range of preventative health benefits. Some of the tests and screenings are paid in full while others may be subject to a deductible, co-insurance, and / or copay. Some of these benefits include a comprehensive review of your medical history including lifestyle, illnesses that may run in your family, and various assessments and screenings as appropriate. After reviewing your medical record and screening and assessments performed today, your provider may have ordered immunizations, labs, imaging, and / or referrals for you. A list of these orders (if applicable) as well as your Preventative Care list are included within your After Visit Summary for your review. Other Preventative Recommendations: A preventive eye exam by an sports marketing specialist is recommended every 1-2 years to screen for glaucoma, cataracts, macular degeneration, and other eye disorders. A preventive dental visit is recommended every 6 months. Try to get at least 150 minutes of exercise per week or 10,000 steps per day on a pedometer. You need 1200-1500mg of calcium and 4682-1141 international units of vitamin D per day. It is possible to meet your calcium requirement with diet alone, but a vitamin D supplement is usually necessary to meet this goal. When exposed to the sun, use a sunscreen that protects against both UVA and UVB radiation with an SPF of 30 or greater. Reapply every 2-3 hours or after sweating, drying off with a towel, or swimming. Always wear a seat belt when traveling in a car. Always wear a helmet when riding a bicycle or a motorcycle [facility] Office Visiton 07-17-2024 Follow-up visit [id number] Irasema Macdonald 1945 F Date Provider Department Center 07/17/2024 [id number] ROY [facility] Family History Problem Relation Age of Onset Diabetes Mother High Blood Pressure Mother Colon cancer Mother 89 High Blood Pressure Father Substance Abuse Father Breast cancer Sister 50 Stomach cancer Father's Brother 48 Family Status - Relation Status Age at Mother Father Sister Alive Father's Brother Alive Level of Service:G0439 MS PPPS, SUBSEQ VISIT Reason for Visit and Comments: Medicare Annual Wellness Visit Subsequent [997] Health Maintenance [872] - Zoster Vaccines-declined DTaP/Tdap/Td Vaccines-declined RSV Immunization for Adults-declined Medicare Advantage Annual Wellness Visit-TODAY Influenza Vaccine-declined COVID-19 Vaccine-declined Depression Screening-completed [facility] Progress Noteon 07-17-2024 Progress Note Continue weightbeari ng exercise. Low-fat low-carb diet [facility] Progress Note Check renal functioning. Maintain good blood pressure control. [facility] Progress Note Recheck cbc [facility] Progress Note Continue calcium and vitamin D. Patient currently not taking Boniva. Repeat DEXA next year [facility] Progress Note Initial blood pressu re reading elevated 153/77, Home blood pressure readings good (mostly 120-130s/70-80s) [facility] Progress Note Patient was identifi ed by name and Date of . Health Maintenance Due Topic Zoster Vaccines-declined DTaP/Tdap/Td Vaccines-declined RSV Immunization for Adults-declined Medicare Advantage Annual Wellness Visit-TODAY Influenza Vaccine-declined COVID-19 Vaccine-declined Depression Screening-completed [facility] Progress Note [facility] [id number] Dept: [phone] Dept Chief Complaint: Irasema Macdonald is an 78 y.o. female here for an annual wellness visit. Assessment/Plan : Problem List Items Addressed This Visit Age-related osteoporosis without current pathological fracture Continue calcium and vitamin D. Patient currently not taking Boniva. Repeat DEXA next year Anemia Recheck cbc Relevant Orders CBC auto differential Decreased calculated glomerular filtration rate (GFR) Check renal functioning. Maintain good blood pressure control. Hyperlipidemia Relevant Orders Lipid panel Class 1 obesity due to excess calories with serious comorbidity and body mass index (BMI) of 30.0 to 30.9 in adult Continue weightbearing exercise. Low-fat low-carb diet Essential hypertension Initial blood pressure reading elevated 153/77, Home blood pressure readings good (mostly 120-130s/70-80s) Relevant Orders Comprehensive metabolic panel Anxiety Controlled. Continue Ativan 0.5 mg 3 times daily as needed for anxiety. CS MA in place, OARRS reviewed and consistent with treatment plan. Relevant Medications LORazepam (Ativan) 0.5 MG tablet Other Visit Diagnoses Routine general medical examination at health care facility - Primary Encounter for screening mammogram for malignant neoplasm of breast Relevant Orders Bilateral screening mammogram with tomosynthesis I have reviewed and reconciled the medication list with the patient today. Current Outpatient Medications Medication Sig Dispense Refill ascorbic acid (Vitamin C) 250 MG tablet Take 250 mg by mouth in the morning. aspirin 81 MG chewable tablet Chew 81 mg every morning (before breakfast). CALCIUM CARBONATE-VIT D-MIN PO Take 1 capsule by mouth in the morning. Cranberry-Cholecalcifer ol 4200-500 MG-UNIT capsule Take by mouth every morning (before breakfast). Estriol 10 % cream Twice a week hydroCHLOROthiazide 12.5 MG tablet TAKE 1 TABLET BY MOUTH EVERY DAY 90 tablet 1 losartan (Cozaar) 50 MG tablet TAKE 1 TABLET BY MOUTH EVERY MORNING. 90 tablet 1 rosuvastatin (Crestor) 20 MG tablet TAKE 1 TABLET BY MOUTH EVERY DAY 90 tablet 1 LORazepam (Ativan) 0.5 MG tablet Take 1 tablet (0.5 mg) by mouth 3 times daily as needed for anxiety for up to 7 days. 21 tablet 0 No current facility-administered medications for this visit. Also reviewed during this visit: Anxiety- reports doing well, will occasionally take ativan 0.5 mg. Everything is going well at home. No concerns. Hypertension- taking losartan 50 mg and hydrochlorothiazide 12.5 mg daily. Monitors blood pressure at home and readings are good. Gets anxious coming in and bp usually elevated in office. Denies any AE of medication. Decreased GFR- 12/2023 last GFR- 42, 01/2024 urine microalbumin-creat- normal Hyperlipidemia- due for lipid check today. Takes rosuvastatin 20 mg daily. Denies any AE of medication. Osteoporosis- last DEXA 2022. Did not tolerate boniva. Is taking calcium and vit d, weight bearing exercise daily. The following health maintenance schedule was reviewed with the patient and provided in printed form in the after visit summary: Health Maintenance Topic Date Due Medicare Advantage Annual Wellness Visit 08/23/2023 Influenza Vaccine (1) 02/19/2025 (Originally 04/23/2024) Bone Density Scan 09/08/2024 Depression Screening 07/17/2025 Lipid Panel 07/12/2028 Pneumococcal Vaccine: 65+ Years Completed RSV Immunization under 20 Months Aged Out HIB Vaccines Aged Out IPV Vaccines Aged Out Hepatitis A Vaccines Aged Out Meningococcal Vaccine Aged Out Rotavirus Vaccines Aged Out HPV Vaccines Aged Out RSV Immunization for Adults Discontinued DTaP/Tdap/Td Vaccines Discontinued Hepatitis B Vaccines Discontinued Zoster Vaccines Discontinued Hepatitis C Screening Discontinued Colorectal Cancer Screening Discontinued COVID-19 Vaccine Discontinued List of current healthcare providers: Patient Care Team: Nicholas Angelo MD as PCP - General Orders Placed This Encounter Procedures Bilateral screening mammogram with tomosynthesis Standing Status: Future Standing Expiration Date: 09/16/2025 Lipid panel Standing Status: Future Number of Occurrences: 1 Standing Expiration Date: 07/17/2025 CBC auto differential Standing Status: Future Number of Occurrences: 1 Standing Expiration Date: 07/17/2025 Comprehensive metabolic panel Standing Status: Future Number of Occurrences: 1 Standing Expiration Date: 07/17/2025 Review of Systems Constitutional: Negative. HENT: Negative. Eyes: Negative. Respiratory: Negative. Cardiovascular: Negative. Gastrointestinal: Negative. Genitourinary: Negative. Musculoskeletal: Negative. Neurological: Negative. Psychiatric/Behavioral: Negative for behavioral problems, decreased concentration, dysphoric mood, (more content not included)... [facility] 36on 06-27-2024 36 Reviewed chart. Refi ll appropriate. RX sent. [facility] 36 Prescription Request : Last medication check: 02/14/24 Last physical exam: 07/12/23 Next scheduled appointment: 07/17/24 Last date of refill on this medication 01/03/24 90 day 1refill Normal [facility] Microalbumin/Creatinine rati o panel (U)on 02-15-2024 Albumin DL <= 20 mg/L (U) [Mass/Vol] 1.2 mg/dL See Note: [facility] Comment on above: Reference Range: Reference Range Not established Albumin/Creatinine (U) [Mass ratio] 14 NINF [facility] Comment on above: The ADA defines abnormalities in albumin excretion as follows: Albuminuria Category Result (mg/g creatinine) Normal to Mildly increased <30 Moderately increased 30-299 Severely increased > OR = 300 The ADA recommends that at least two of three specimens collected within a 3-6 month period be abnormal before considering a patient to be within a diagnostic category. Creatinine (U) [Mass/Vol] 86 mg/dL 20 - 275 mg/dL [facility] DBT Breast - bilateral scree maninder 09-09-2023 No mammographic evidence of malignancy. ASSESSMENT: Category 1 Negative RECOMMENDATION: Routine screening mammogram in 1 year. Bilateral CANCER RISK ASSESSMENT: This risk assessment is based on patient provided information collected in a risk survey taken at the time of this examination. LIFETIME BREAST CANCER RISK: Tyrer-Cuzick: 6.84% - If greater than or equal to 20%, consider annual mammogram and annual screening Breast MRI or follow up in high risk clinic. Is the patient at elevated risk based on the HBOC criteria? Yes (Hereditary Breast and Ovarian Cancer) - If Yes, consider genetic counseling and testing with high risk follow up. Is the patient at elevated risk based on the Milian Syndrome criteria? No - If Yes, consider genetic counseling and testing with high risk follow up. Report Dictated on Electronically Signed By: Rosario Graves MD Electronically Signed Date/Time: 09/09/2023 8:32 AM [facility] 1945 [id number] Exam Date/Time: 09/09/2023 07:56 Procedure: BI MAMMOGRAM SCREENING TOMOSYNTHESIS BILATERAL Ordering Provider: ROY REBECCA Reason For Exam: screening mammog Image views: 2D Bilateral CC and MLO views were acquired. 3D Bilateral CC and MLO views were acquired. Images were reviewed with CAD. Markings on images: BB's = Nipples; skin lesions Open [place] = Palpable Line = Scar COMPARISON: 09/08/2022 and 09/03/2021 TISSUE DENSITY: BIRADS A - The breast tissue is almost entirely fat. FINDINGS: No suspicious masses, architectural distortions or suspiciously clustered microcalcifications are identified. There is no evidence of skin thickening or nipple retraction. There are no significant changes when compared with prior studies. [facility] Rosario Graves MD - 09/09/2023 Patient Name: IRASEMA MACDONALD : 1945 Exam Date/Time: 09/09/2023 07:56 Procedure: BI MAMMOGRAM SCREENING TOMOSYNTHESIS BILATERAL Ordering Provider: ROY REBECCA Reason For Exam: screening mammog Image views: 2D Bilateral CC and MLO views were acquired. 3D Bilateral CC and MLO views were acquired. Images were reviewed with CAD. Markings on images: BB's = Nipples; skin lesions Open [place] = Palpable Line = Scar COMPARISON: 09/08/2022 and 09/03/2021 TISSUE DENSITY: BIRADS A - The breast tissue is almost entirely fat. FINDINGS: No suspicious masses, architectural distortions or suspiciously clustered microcalcifications are identified. There is no evidence of skin thickening or nipple retraction. There are no significant changes when compared with prior studies. IMPRESSION: No mammographic evidence of malignancy. ASSESSMENT: Category 1 Negative RECOMMENDATION: Routine screening mammogram in 1 year. Bilateral CANCER RISK ASSESSMENT: This risk assessment is based on patient provided information collected in a risk survey taken at the time of this examination. LIFETIME BREAST CANCER RISK: Tyrer-Cuzick: 6.84% - If greater than or equal to 20%, consider annual mammogram and annual screening Breast MRI or follow up in high risk clinic. Is the patient at elevated risk based on the HBOC criteria? Yes (Hereditary Breast and Ovarian Cancer) - If Yes, consider genetic counseling and testing with high risk follow up. Is the patient at elevated risk based on the Milian Syndrome criteria? No - If Yes, consider genetic counseling and testing with high risk follow up. Report Dictated on Electronically Signed By: Rosario Graves MD Electronically Signed Date/Time: 09/09/2023 8:32 AM EST [facility] Radiology Study observation (narrative) [facility] DBT Breast - bilateral scree ningOrdered By: Rosario Graves on 09-09-2023 [facility] Urine Cultureon 07-14-2023 [facility] Escherichia coli Bruce Count >100,000 Escherichia coli: REACTION Ampicillin Islt VIJAY <=2 S Ampicillin+Sulbac Islt VIJAY <=2 S ceFAZolin Islt VIJAY <=4 S Cefepime Islt VIJAY <=0.12 S cefTRIAXone Islt VIJAY <=0.25 S Ciprofloxacin Islt VIJAY <=0.25 S Ertapenem Islt VIJAY <=0.12 S B-Lactamase Extended Susc Islt NEG Gentamicin Islt VIJAY <=1 S Imipenem Islt VIJAY <=0.25 S levoFLOXacin Islt VIJAY <=0.12 S Nitrofurantoin Islt VIJAY <=16 S Pip+Tazo Islt VIJAY <=4 S Tobramycin Islt VIJAY <=1 S TMP SMX Islt VIJAY <=20 S Normal [facility] Comment on above: Performed By: #### L 3650.0100, #### [facility] [address] [place], [address] Calculi, Urinary w / Photoon 07-12-2023 Color (U) Normal [facility] Comment on above: Result Comment: WRON G ORDER. REGISTRATION LABEL WRONG Performed By: #### L 3650.0100, #### [facility] [address] [place], [address] SIZE Normal [facility] Comment on above: Result Comment: WRON G ORDER. REGISTRATION LABEL WRONG Performed By: #### L 3650.0100, #### [facility] [address] [place], [address] SOURCE Normal [facility] Comment on above: Result Comment: WRON G ORDER. REGISTRATION LABEL WRONG Performed By: #### L 3650.0100, .2199 #### [facility] [address] [place], [address] WEIGHT Normal [facility] Comment on above: Result Comment: LYNN Prasad ORDER. REGISTRATION LABEL WRONG Performed By: #### L 3650.0100, M100.0 #### [facility] [address] [place], [place], [id number] Culture, urineOrdered By: Greg mcmillan [place] on 07-12-2023 Bacteria identified Cx Nom (U) Escherichia coli [facility] Urine Cultureon 01-14-2023 [facility] Presumptive E. coli Bruce Count >100,000 Presumptive E. coli: REACTION Ampicillin Islt VIJAY 8 S Ampicillin+Sulbac Islt VIJAY <=2 S ceFAZolin Islt VIJAY <=4 S Cefepime Islt VIJAY <=0.12 S cefTRIAXone Islt VJIAY <=0.25 S Ciprofloxacin Islt VIJAY <=0.25 S Ertapenem Islt VIJAY <=0.12 S B-Lactamase Extended Susc Islt NEG Gentamicin Islt VIJAY <=1 S Imipenem Islt VIJAY <=0.25 S levoFLOXacin Islt VIJAY <=0.12 S Nitrofurantoin Islt VIJAY <=16 S Pip+Tazo Islt VIJAY <=4 S Tobramycin Islt VIJAY <=1 S TMP SMX Islt VIJAY <=20 S [facility] Comment on above: Performed By: #### M 100.2200 #### [facility] [address] [place], [place], [id number] Urine Cultureon 10-01-2022 [facility] Raoultella planticol a Bruce Count >100,000 Raoultella planticola: REACTION Ampicillin Islt VIJAY >=32 R Ampicillin+Sulbac Islt VIJAY 4 S ceFAZolin Islt VIJAY <=4 S Ciprofloxacin Islt VIJAY <=0.25 S Gentamicin Islt VIJAY <=1 S Imipenem Islt VIJAY 1 S levoFLOXacin Islt VIJAY <=0.12 S Nitrofurantoin Islt VIJAY 64 I Tobramycin Islt VIJAY <=1 S TMP SMX Islt VIJAY <=20 S [facility] Comment on above: Performed By: #### M 100.2200 #### [facility] [address] [place], [address] Abdomen/Pelvis without Conto n 09-17-2022 Abdomen/Pelvis without Cont [facility] [address] [place] [address] Abdomen/Pelvis without Cont MR#: [id number] Acct: [id number] Name: IRASEMA MACDONALD Rep #: [id number] : 1945 F 76 From: Jesus jensen MD PCP: Dr. Nicholas Angelo MD Status: REG CLI Study: Abdomen/Pelvis without Cont Date of Exam: 08/24 02/12 Exam# [id number] Ordering Dr: Renard Tavera MD STUDY: CT ABDOMEN AND PELVIS WITHOUT CONTRAST REASON FOR EXAM: Female, 76 years old. GROSS HEMATURIA. Left flank pain. UTI. RADIATION DOSAGE (If Supplied By Facility): CTDIvol = ( 8.80 ) mGy, DLP = ( 441.94 ) mGycm TECHNIQUE: Transaxial images were obtained from the dome of the diaphragm to the symphysis pubis without oral contrast, and without intravenous contrast. Sagittal and coronal images were reconstructed. Individualized dose optimization techniques were used for this CT. COMPARISON: Comparison is made with prior study of 10/27/2018. FINDINGS: The visualized lung bases are unremarkable. The visualized portions of the heart are within normal limits. The previously seen cyst in the superior lateral portion of the right lobe of liver is decreased in size. It presently measures 1.2 cm. There is a 2 cm x 1.5 cm cyst in the region of the gallbladder fossa. There is a solitary gallstone. Normal spleen. Normal pancreas. Normal bilateral adrenal glands. Normal right kidney. Normal left kidney. Normal visualized stomach. Normal small intestine. There are multiple colonic diverticula consistent with diverticulosis. The appendix is visualized and appears normal. Normal abdominal aorta. Normal inferior vena cava. There is borderline retroperitoneal lymphadenopathy with enlarged nodes no greater than 10mm in the short axis diameter. Normal urinary bladder. 2 cm cyst in the left ovary. Normal abdominal wall. There are diffuse degenerative changes of the visualized lumbar spine. CT/Abdomen/Pelvis without Cont IMPRESSION: Stable examination. Electronically Signed: Jesus Billy MD at 15:31 EST Reading Location ID and State: [facility] / [place] , Service support , CC: Dr. Nicholas Angelo MD; Dr. 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 coli [facility] Urine Cultureon 09-16-2022 [facility] Presumptive E. coli Bruce Count >100,000 Presumptive E. coli: REACTION Ampicillin Islt VIJAY 8 S Ampicillin+Sulbac Islt VIJAY <=2 S ceFAZolin Islt VIJAY <=4 S Cefepime Islt VIJAY <=0.12 S cefTRIAXone Islt VIJAY <=0.25 S Ciprofloxacin Islt VIJAY <=0.25 S Ertapenem Islt VIJAY <=0.12 S B-Lactamase Extended Susc Islt NEG Gentamicin Islt VIJAY <=1 S Imipenem Islt VIJAY <=0.25 S levoFLOXacin Islt VIJAY <=0.12 S Nitrofurantoin Islt VIJAY <=16 S Pip+Tazo Islt VIJAY <=4 S Tobramycin Islt VIJAY <=1 S TMP SMX Islt VIJAY <=20 S Normal [facility] Comment on above: Performed By: #### M 100.2208 #### [facility] [address] [place], [address] DBT Breast - bilateral lettye maninder 09-08-2022 No mammographic evidence of malignancy. ASSESSMENT: Category 1 Negative RECOMMENDATION: Routine screening mammogram in 1 year. Bilateral Report Dictated on Electronically Signed By: Rosario Graves Electronically Signed Date/Time: 09/08/2022 12:26 PM EST [facility] Patient Name: IRASEMA MACDONALD Exam Date/Time: 09/08/2022 08:09 Procedure: BI MAMMOGRAM SCREENING TOMOSYNTHESIS BILATERAL Ordering Provider: CABALLERO HOLLY Reason For Exam: Image views: 2D Bilateral CC and MLO views were acquired. 3D Bilateral CC and MLO views were acquired. Images were reviewed with CAD. Markings on images: BB's = Nipples; skin lesions Open [place] = Palpable Line = Scar COMPARISON: 09/03/2021 and 09/02/2020 TISSUE DENSITY: BIRADS B - There are scattered fibroglandular densities. FINDINGS: No suspicious masses, architectural distortions or suspiciously clustered microcalcifications are identified. There is no evidence of skin thickening or nipple retraction. There are no significant changes when compared with prior studies. [facility] Rosario Graves MD - 09/08/2022 Patient Name: IRASEMA MACDONALD Exam Date/Time: 09/08/2022 08:09 Procedure: BI MAMMOGRAM SCREENING TOMOSYNTHESIS BILATERAL Ordering Provider: CABALLERO HOLLY Reason For Exam: Image views: 2D Bilateral CC and MLO views were acquired. 3D Bilateral CC and MLO views were acquired. Images were reviewed with CAD. Markings on images: BB's = Nipples; skin lesions Open [place] = Palpable Line = Scar COMPARISON: 09/03/2021 and 09/02/2020 TISSUE DENSITY: BIRADS B - There are scattered fibroglandular densities. FINDINGS: No suspicious masses, architectural distortions or suspiciously clustered microcalcifications are identified. There is no evidence of skin thickening or nipple retraction. There are no significant changes when compared with prior studies. IMPRESSION: No mammographic evidence of malignancy. ASSESSMENT: Category 1 Negative RECOMMENDATION: Routine screening mammogram in 1 year. Bilateral Report Dictated on Electronically Signed By: Rosario Graves Electronically Signed Date/Time: 09/08/2022 12:26 PM [facility] Radiology Study observation (narrative) [facility] DBT Breast - bilateral scree ningOrdered By: Rosario Graves on 09-08-2022 [facility] Work Phone: DXA Skeletal system.axial Vi ews for bone densityon 09-08-2022 Osteoporosis. RECOMMENDATIONS (from the National Osteoporosis Foundation *) : General recommendations for prevention of bone loss include: 8186-2241 mg calcium intake per day for adults >50yrs, and no history of renal calculi 800-1000 IU of vitamin D3 per day for adults >50yrs, and no history of renal calculi Weight bearing exercise Discontinue smoking Avoid excessive use of caffeine, soft drinks, and alcoholic beverages. In addition, balance training and fall prevention programs can help reduce the risk of fractures. Pharmacologic treatment recommendations: Initiate pharmacologic treatment in patients with hip or vertebral fracture. In those with T scores In postmenopausal women and men age 50 or older with low bone mass (T score between -1.0 and -2.5 [osteopenia]) at the femoral neck, total hip, or lumbar spine by DXA and a 10 year hip fracture probability >/= 3% or a 10 year major osteoporosis-related fracture probability >/= 20% based on the [place]-adapted WHO fracture risk model (FRAX). Current FDA-approved pharmacologic options for osteoporosis treatment include bisphosphonates (Fosamax), ibandronate (Boniva), risedronate (Actonel), zoledronic acid (Reclast), estrogens and other hormonal therapies (Evista), parathyroid hormone (Forteo), and denosumab (Prolia). Initiation of pharmacologic therapy should happen only after thorough medical evaluation, discussion of risks and benefits, and with regular monitoring of the therapeutic regimen. Follow-up recommendations: Patients with osteoporosis or or at high risk for fracture should have follow-up bone density tests. For Medicare patients, routine testing is allowed every 2 years. Patients who have low bone mass (T score -2.0 to -2.49), who are currently on treatment for low bone mass, or having risk factors for accelerated bone loss (glucocorticoids, aromatase inhibitors, etc.), consider repeat DXA in 1-2 years. Patients with osteopenia and no risk factors may consider follow-up every 3-5 years. References: * National Osteoporosis Foundation. Clinician's Guide to Prevention and Treatment of Osteoporosis. Osteoporosis International. Maki, 2014. DXA Scan Screening, Reporting (FRAX Score) and Follow-up. [place] of Knowledge Evidence - based Summaries. [facility] Education [facility] Research. 2017 Report Dictated on Electronically Signed By: Louie Mariscal Electronically Signed Date/Time: 09/08/2022 11:05 AM EST [employer] [facility] Patient Name: IRASEMA MACDONALD Exam Date/Time: 09/08/2022 08:34 Procedure: DEXA BONE DENSITY AXIAL SKELETON Ordering Provider: CABALLERO HOLLY Reason For Exam: DXA BONE DENSITOMETRY: CLINICAL INDICATION: Asymptomatic post-menopausal status. Screening for osteoporosis. COMPARISON: None TECHNIQUE: Quantitative bone mineral densitometry of the hip and lumbar spine was performed with a dual energy x-ray observed absorptiometry device - HoloG5 Horizon W. Regions of interest were obtained through the left proximal femur and compared to the normal value of young adult women. Regions of interest were also obtained through the lumbar vertebrae with an average value determined and compared to the normal value of young adult woman. The difference between your measured bone density and the bone density of a normal young woman is expressed in standard deviations as the T score. Similarly, your measured bone is also compared to age and race matched values, and expressed in standard deviations as the Z score. According to World Health Organization criteria: T-score of -1.0 or higher is normal. T-score between -1.0 and -2.5 is low bone density or osteopenia. T-score of -2.5 or lower is abnormally low, compatible with osteoporosis. FINDINGS: Femoral neck Density: 0.58 g/cm2. T-score: -2.5 Z-score: -0.4 Total Hip Density: 0.73 g/cm2. T-score: -1.8 Z-score: 0.0 Comparison from prior examination: N/A Spine: L1-L4 Density: 1.069 g/cm2. T-score: 0.2 Z-score: 2.6 Comparison from prior examination: N/A FRACTURE RISK: The estimated 10 year risk for a hip fracture is 6.7% and for a major osteoporosis-related fracture is 23%. (FRAX Version 3.08). [employer] Louie Mariscal M D - 09/08/2022 [id number] Exam Date/Time: 09/08/2022 08:34 Procedure: DEXA BONE DENSITY AXIAL SKELETON Ordering Provider: CABALLERO HOLLY Reason For Exam: DXA BONE DENSITOMETRY: CLINICAL INDICATION: Asymptomatic post-menopausal status. Screening for osteoporosis. COMPARISON: None TECHNIQUE: Quantitative bone mineral densitometry of the hip and lumbar spine was performed with a dual energy x-ray observed absorptiometry device - HoloG5 Horizon W. Regions of interest were obtained through the left proximal femur and compared to the normal value of young adult women. Regions of interest were also obtained through the lumbar vertebrae with an average value determined and compared to the normal value of young adult woman. The difference between your measured bone density and the bone density of a normal young woman is expressed in standard deviations as the T score. Similarly, your measured bone is also compared to age and race matched values, and expressed in standard deviations as the Z score. According to World Health Organization criteria: T-score of -1.0 or higher is normal. T-score between -1.0 and -2.5 is low bone density or osteopenia. T-score of -2.5 or lower is abnormally low, compatible with osteoporosis. FINDINGS: Femoral neck Density: 0.58 g/cm2. T-score: -2.5 Z-score: -0.4 Total Hip Density: 0.73 g/cm2. T-score: -1.8 Z-score: 0.0 Comparison from prior examination: N/A Spine: L1-L4 Density: 1.069 g/cm2. T-score: 0.2 Z-score: 2.6 Comparison from prior examination: N/A FRACTURE RISK: The estimated 10 year risk for a hip fracture is 6.7% and for a major osteoporosis-related fracture is 23%. (FRAX Version 3.08). IMPRESSION: Osteoporosis. RECOMMENDATIONS (from the National Osteoporosis Foundation *) : General recommendations for prevention of bone loss include: 0207-5872 mg calcium intake per day for adults >50yrs, and no history of renal calculi 800-1000 IU of vitamin D3 per day for adults >50yrs, and no history of renal calculi Weight bearing exercise Discontinue smoking Avoid excessive use of caffeine, soft drinks, and alcoholic beverages. In addition, balance training and fall prevention programs can help reduce the risk of fractures. Pharmacologic treatment recommendations: Initiate pharmacologic treatment in patients with hip or vertebral fracture. In those with T scores spine by DXA In postmenopausal women and men age 50 or older with low bone mass (T score between -1.0 and -2.5 [osteopenia]) at the femoral neck, total hip, or lumbar spine by DXA and a 10 year hip fracture probability >/= 3% or a 10 year major osteoporosis-related fracture probability >/= 20% based on the [place]-adapted WHO fracture risk model (FRAX). Current FDA-approved pharmacologic options for osteoporosis treatment include bisphosphonates (Fosamax), ibandronate (Boniva), risedronate (Actonel), zoledronic acid (Reclast), estrogens and other hormonal therapies (Evista), parathyroid hormone (Forteo), and denosumab (Prolia). Initiation of pharmacologic therapy should happen only after thorough medical evaluation, discussion of risks and benefits, and with regular monitoring of the therapeutic regimen. Follow-up recommendations: Patients with osteoporosis or or at high risk for fracture should have follow-up bone density tests. For Medicare patients, routine testing is allowed every 2 years. Patients who have low bone mass (T score -2.0 to -2.49), who are currently on treatment for low bone mass, or having risk factors for accelerated bone loss (glucocorticoids, aromatase inhibitors, etc.), consider repeat DXA in 1-2 years. Patients with osteopenia and no risk factors may consider follow-up every 3-5 years. References: * National Osteoporosis Foundation. Clinician's Guide to Prevention and Treatment of Osteoporosis. Osteoporosis International. Maki, 2014. DXA Scan Screening, Reporting (FRAX Score) and Follow-up. [place] of Knowledge Evidence - based Summaries. [facility] [employer] for Education and Research. 2017 Report Dictated on Electronically Signed By: Louie Mariscal Electronically Signed Date/Time: 09/08/2022 11:05 AM EST [facility] Study observation (narrative) [facility] DXA Skeletal system.axial Vi ews for bone densityOrdered By: Louie Mariscal on 09-08-2022 [facility] Work Phone: Urinalysis macro (dipstick) panel (U)on 08-26-2022 Bilirubin, [facility], UA Large [facility] Glucose, UA Negative [facility] Interpretation and review of laboratory results Abnormal [facility] Ketones, UA Negative [facility] Leukocytes, UA Large [facility] Nitrite, UA Positive [facility] pH, UA 6.0 [facility] Protein, UA Trace [facility] Spec Grav, UA 1.020 [facility] U[facility], UA 0.2 [facility] Glucose Glucometer (BldC) [M ass/Vol]Ordered By: Dr. Angelo on 06-03-2022 Glucose [Mass/Vol] 119 mg/dL 74-106 [facility] Comment on above: MANAGEMENT OF PATIEN T CARE PER NURSING PROTOCOL No Panel InformationOrdered By: Dr. Angelo on 05-23-2022 Nasal Screen MRSA/MSSA [facility] Absolute lymphocyte countOrd ered By: Dr. Angelo on 05-22-2022 Lymphocytes Auto (Unsp spec) [#/Vol] 1.92 10*3/uL 0.83-4.51 [facility] Basophil percentageOrdered B y: Dr. Angelo on 05-22-2022 Basophils/100 WBC (Bld) 1.1 % 0-1 [facility] Eosinophils/100 WBC (Bld) 3.3 % 0-5 [facility] Neutrophils (Bld) [#/Vol] 2.7 10*3/uL 2.0-7.7 [facility] Neutrophils/100 WBC (Bld) 49.8 % 47-70 [facility] WBC (Bld) [#/Vol] 5.4 10*3/uL 4.4-11.0 [facility] Basophil percentageOrdered B y: Dr. Nichols on 05-22-2022 Chloride [Moles/Vol] 107 mmol/L 98-107 [facility] Glucose [Mass/Vol] 103 mg/dL 74-106 [facility] Comment on above: Fasting Glucose resu lt from 100 to 125 mg/dL suggests IMPAIRED HOMEOSTASIS per A.D.A. criteria. Potassium [Moles/Vol] 3.9 mmol/L 3.5-5.1 [facility] Sodium [Moles/Vol] 141 mmol/L 136-145 [facility] Blood erythrocytes count (nu mber/volume)Ordered By: Dr. Angelo on 05-22-2022 RBC (Bld) [#/Vol] 3.93 10*6/uL 4.2-5.4 [facility] Blood hemoglobin measurement (mass/volume)Ordered By: Dr. Angelo on 05-22-2022 Hemoglobin (Bld) [Mass/Vol] 11.8 g/dL 12.0-15.0 [facility] Blood lymphocytes/100 leukoc ytesOrdered By: Dr. Angelo on 05-22-2022 Lymphocytes/100 WBC (Bld) 35.7 % 19-41 [facility] Blood monocytes/100 leukocyt esOrdered By: Dr. Angelo on 05-22-2022 Monocytes/100 WBC (Bld) 9.7 % 0-10 [facility] Blood platelet mean volumeOr dered By: Dr. Angelo on 05-22-2022 Platelet mean volume (Bld) [Entitic vol] 9.9 fL 6.2-12.0 [facility] Determination of erythrocyte mean corpuscular volume (MCV)Ordered By: Dr. Angelo on 05-22-2022 MCV (RBC) [Entitic vol] 93.4 fL 81-99 [facility] Hematocrit Auto (Bld) [Volum e fraction]Ordered By: Dr. Angelo on 05-22-2022 Hematocrit (Bld) [Volume fraction] 36.7 % 37-47 [facility] Laboratory - Chemistry and C hemistry - challengeOrdered By: Dr. Nichols on 05-22-2022 CO2 [Moles/Vol] 29.0 mmol/L 21.0-32.0 [facility] Magnesium [Mass/Vol] 2.1 mg/dL 1.6-2.6 [facility] Urea nitrogen/Creatinine [Mass ratio] 28.3 mg/mg 10-20 [facility] - Hematology and Cell countsOrdered By: Dr. Angelo on 05-22-2022 Erythrocyte distribution width (RBC) [Entitic vol] 46.1 fL 35.1-43.9 [facility] Erythrocyte distribution width (RBC) [Ratio] 13.3 % 11.6-14.6 [facility] Immature granulocytes/100 WBC (Bld) 0.400 % 0.0-0.9 [facility] Comment on above: IG% - Immature Granu locytes (promyelocytes, myelocytes and metamyelocytes) > 1% indicates that a LEFT SHIFT is Present. MCH (RBC) [Entitic mass] 30.0 pg 27.0-32.0 [facility] Nucleated RBC/100 WBC (Bld) [Ratio] 0 % 0-5 [facility] MCHC Auto (RBC) [Mass/Vol]Or dered By: Dr. Angelo on 05-22-2022 MCHC (RBC) [Mass/Vol] 32.2 g/dL 32-36 [facility] No Panel InformationOrdered By: Dr. Nichols on 05-22-2022 Estimated GFR (MDRD) Amer 60 mL/min >60 [facility] Comment on above: GFR Calc Estimated GFR (MDRD) Non-Af Amer 50 mL/min >60 [facility] Comment on above: Non- GFR Calc No Panel InformationOrdered By: Dr. Angelo on 05-22-2022 Miscellaneous Test See comment [facility] Comment on above: TEST RESULT LIMITSPe nicillin PanelClass Description: Levels of Specific IgE Class Description of Class ----- < 0.10 0 Negative 0.10 - 0.31 0/I Equivocal/Low 0.32 - 0.55 I Low 0.56 - 1.40 II Moderate 1.41 - 3.90 III High 3.91 - 19.00 IV Very High19.01 - 100.00 V Very High >100.00 Very [id number] Penicilloyl G <0.10 kU/L Class [id number] Penicilloyl V <0.10 kU/L Class 0 [facility] ORIGINAL REPORT ON FILE IN LAB CONTAINS ADDITIONAL TEST SITE INFORMATION. Platelets bldOrdered By: Dr. Angelo on 05-22-2022 Platelets (Bld) [#/Vol] 229 10*3/uL 150-450 [facility] Serum or plasma albumin dwayne urement (mass/volume)Ordered By: Dr. Angelo on 05-22-2022 Albumin [Mass/Vol] 3.5 g/dL 3.2-5.0 [facility] Serum or plasma calcium dwayne urement (mass/volume)Ordered By: Dr. Nichols on 05-22-2022 Calcium [Mass/Vol] 9.6 mg/dL 8.5-10.1 [facility] Serum or plasma creatinine m easurement (mass/volume)Ordered By: Dr. Nichols on 05-22-2022 Creatinine [Mass/Vol] 1.13 mg/dL 0.55-1.02 [facility] Comment on above: The validity of the calculated GFR & GFRAA in patients over 70 years has not been determined. Clinical correlation is essential. Serum or plasma urea nitroge n measurement (mass/volume)Ordered By: Dr. Nichols on 05-22-2022 Urea nitrogen [Mass/Vol] 32 mg/dL 7-18 [facility] Thin prep Papanicolaou smear with manual screeningOrdered By: Dr. Nichols on 05-22-2022 Thin prep Papanicolaou smear with manual screening 5 5-15 [facility] MG Breast Tomosynthesis Scr Blon 09-03-2021 MG Breast Tomosynthesis Scr Bl Patient Name: IRASEMA MACDONALD Mammography ACCESSION EXAM DATE/TIME PROCEDURE ORDERING PROVIDER [id number] 09/03/2021 07:56 EST MG Breast Tomosynthesis CAROLINA CABALLERO HOLLY S BI Scr CPT code [id number] Reason For Exam (MG Breast Tomosynthesis BI Scr) screening Report TIME SINCE LAST MAMMOGRAM: Last mammogram was performed 1 year ago. REASON FOR EXAM: screening, asymptomatic. PROCEDURE: MG BREAST TOMOSYNTHESIS BL SCR: SEPTEMBER 03, 2021 - 2D/3D Procedure 3D Bilateral CC and MLO view(s) were taken. 2D Bilateral CC and MLO view(s) were taken. Prior study comparison: September 02, 2020, bilateral MG breast tomosynthesis bl scr performed at [facility]. August 31, 2019, bilateral MG breast tomosynthesis bl scr performed at [facility]. August 30, 2018, bilateral MG breast tomosynthesis bl scr performed at [facility]. TISSUE DENSITY: BIRADS B - There are scattered fibroglandular densities. . PATIENT CANCER HISTORY: No Personal History of Cancer FAMILY CANCER HISTORY: Mother Colon or Rectal Cancer age 89 Sister Breast Cancer age 55 Paternal Uncle Stomach Cancer age 48 . FINDINGS: No suspicious masses, architectural distortions or suspiciously clustered microcalcifications are identified. There is no evidence of skin thickening or nipple retraction. There are no significant changes when compared with prior studies. No mammographic evidence of malignancy. Markings on images: BB's = Nipples; skin lesions Open [place] = Palpable Line = Scar Mammography Report 2D digital mammography and tomosynthesis imaging were performed and reviewed with CAD. ASSESSMENT: Category 1 Negative RECOMMENDATION: Routine screening mammogram of both breasts in 1 year. . Report Dictated on Cancer Risk Assessment: This risk assessment is based on patient provided information collected in a risk survey taken at the time of this examination. Lifetime breast cancer risk: Average Risk - If greater than or equal to 20%, consider annual mammogram and annual screening Breast MRI or follow up in high risk clinic. A score of "Average Risk" indicates a score of less than 20%. Is the patient at elevated risk based on the HBOC criteria? No (Hereditary Breast and Ovarian Cancer) - If yes, consider genetic counseling and testing with high risk follow up. Is the patient at elevated risk based on the Milian Syndrome criteria? No - If yes, consider genetic counseling and testing with high risk follow up. Final Signed Date and Time: 09/03/2021 8:20 am Signed by: DO BARBER RACHEL Normal [facility] KENYATTA OTILIO DIGITAL SCREEN KLAUS Miller 09-02-2020 Patient Name: IRASEMA MACDONALD Mammography ACCESSION EXAM DATE/TIME PROCEDURE ORDERING PROVIDER [id number] 09/02/2020 08:14 EST MG Breast Tomosynthesis MD ANGELO DARRELL BI Mukesh ENGLANDOY CPT code [id number] Reason For Exam (MG Breast Tomosynthesis BI Scr) screening Report TIME SINCE LAST MAMMOGRAM: Last mammogram was performed 1 year ago. REASON FOR EXAM: screening, asymptomatic. PROCEDURE: MG BREAST TOMOSYNTHESIS BL SCR: SEPTEMBER 02, 2020 - 2D/3D Procedure 3D Bilateral CC and MLO view(s) were taken. 2D Bilateral CC and MLO view(s) were taken. Prior study comparison: August 31, 2019, bilateral MG breast tomosynthesis bl scr performed at [facility]. August 30, 2018, bilateral MG breast tomosynthesis bl scr performed at [facility]. August 26, 2017, bilateral MG breast tomosynthesis bl scr performed at [facility]. TISSUE DENSITY: BIRADS B - There are scattered fibroglandular densities. . FINDINGS: No suspicious masses, architectural distortions or suspiciously clustered microcalcifications are identified. There is no evidence of skin thickening or nipple retraction. There are no significant changes when compared with prior studies. No mammographic evidence of malignancy. Markings on images: BB's = Nipples; skin lesions Open [place] = Palpable Line = Scar 2D digital mammography and tomosynthesis imaging were performed and reviewed with CAD. ASSESSMENT: Category 1 Negative RECOMMENDATION: Routine screening mammogram of both breasts in 1 year. . Report Dictated on Mammography Report Cancer Risk Assessment: This risk assessment is based on patient provided information collected in a risk survey taken at the time of this examination. Lifetime breast cancer risk: 9.79% - If greater than or equal to 20%, consider annual mammogram and annual screening Breast MRI or follow up in high risk clinic. Is the patient at elevated risk based on the HBOC criteria? No (Hereditary Breast and Ovarian Cancer) - If yes, consider genetic counseling and testing with high risk follow up. HNPCC mutation risk (Milian Syndrome): 1.1% - if greater than or equal to 5%, consider genetic counseling, testing and screening colonoscopy. --- Final --- Signed Date and Time: 09/02/2020 10:04 am Signed by: MD MARII, PAVEL Dyer [facility] Incoming Radiology Results From [facility] - 09/02/2020 11:40 AM EST Patient Name: IRASEMA MACDONALD Mammography ACCESSION EXAM DATE/TIME PROCEDURE ORDERING PROVIDER [id number] 09/02/2020 08:14 EST MG Breast Tomosynthesis MD PETYE, NICHOLAS BI Scr BETSEY CPT code [id number] Reason For Exam (MG Breast Tomosynthesis BI Scr) screening Report TIME SINCE LAST MAMMOGRAM: Last mammogram was performed 1 year ago. REASON FOR EXAM: screening, asymptomatic. PROCEDURE: MG BREAST TOMOSYNTHESIS BL SCR: SEPTEMBER 02, 2020 - 2D/3D Procedure 3D Bilateral CC and MLO view(s) were taken. 2D Bilateral CC and MLO view(s) were taken. Prior study comparison: August 31, 2019, bilateral MG breast tomosynthesis bl scr performed at [facility]. August 30, 2018, bilateral MG breast tomosynthesis bl scr performed at [facility]. August 26, 2017, bilateral MG breast tomosynthesis bl scr performed at [facility]. TISSUE DENSITY: BIRADS B - There are scattered fibroglandular densities. . FINDINGS: No suspicious masses, architectural distortions or suspiciously clustered microcalcifications are identified. There is no evidence of skin thickening or nipple retraction. There are no significant changes when compared with prior studies. No mammographic evidence of malignancy. Markings on images: BB's = Nipples; skin lesions Open [place] = Palpable Line = Scar 2D digital mammography and tomosynthesis imaging were performed and reviewed with CAD. ASSESSMENT: Category 1 Negative RECOMMENDATION: Routine screening mammogram of both breasts in 1 year. . Report Dictated on Mammography Report Cancer Risk Assessment: This risk assessment is based on patient provided information collected in a risk survey taken at the time of this examination. Lifetime breast cancer risk: 9.79% - If greater than or equal to 20%, consider annual mammogram and annual screening Breast MRI or follow up in high risk clinic. Is the patient at elevated risk based on the HBOC criteria? No (Hereditary Breast and Ovarian Cancer) - If yes, consider genetic counseling and testing with high risk follow up. HNPCC mutation risk (Milian Syndrome): 1.1% - if greater than or equal to 5%, consider genetic counseling, testing and screening colonoscopy. --- Final --- Signed Date and Time: 09/02/2020 10:04 am Signed by: MD MARII, [place], [place] No Panel Information Nasal Screen MRSA/MSSA [facility] Work Phone: Vital Signs Date Time Vital Sign Value Performing Clinician Facility 01-08-2025 08:33-0400 Body height 167.6 cm Melissa Valeroenthal HIGH DENSITY PRESS OPERATOR - STOREHOUSE CLERK Work Phone: [facility] 01-08-2025 08:33-0400 Body mass index (BMI) [Ratio] 30.02 kg/m2 Melissa Valeroenthal HIGH DENSITY PRESS OPERATOR - STOREHOUSE CLERK Work Phone: [facility] 01-08-2025 08:33-0400 Body temperature 96.91 [degF] Melissa Bridenthal HIGH DENSITY PRESS OPERATOR - STOREHOUSE CLERK Work Phone: [facility] 01-08-2025 08:33-0400 Body weight 84.37 kg Melissa Bridenthal HIGH DENSITY PRESS OPERATOR - STOREHOUSE CLERK Work Phone: [facility] 01-08-2025 08:33-0400 Diastolic blood pressure 82 mm[Hg] Melissa Bridenthal HIGH DENSITY PRESS OPERATOR - STOREHOUSE CLERK Work Phone: [facility] 01-08-2025 08:33-0400 Heart rate 81 /min Melissa Bridenthal HIGH DENSITY PRESS OPERATOR - STOREHOUSE CLERK Work Phone: [facility] 01-08-2025 08:33-0400 Respiratory rate 20 /min Melissa Bridenthal HIGH DENSITY PRESS OPERATOR - STOREHOUSE CLERK Work Phone: [facility] 01-08-2025 08:33-0400 SaO2% (BldA) [Mass fraction] 97 % Melissa Bridenthal HIGH DENSITY PRESS OPERATOR - STOREHOUSE CLERK Work Phone: [facility] 01-08-2025 08:33-0400 Systolic blood pressure 133 mm[Hg] Melissa Bridenthal HIGH DENSITY PRESS OPERATOR - STOREHOUSE CLERK Work Phone: [facility] 09-11-2024 10:47-0500 Body height 167.6 cm Melissa Bridenthal HIGH DENSITY PRESS OPERATOR - STOREHOUSE CLERK Work Phone: [facility] 09-11-2024 10:47-0500 Body mass index (BMI) [Ratio] 29.05 kg/m2 Melissa Bridenthal HIGH DENSITY PRESS OPERATOR - STOREHOUSE CLERK Work Phone: [facility] 09-11-2024 10:47-0500 Body weight 81.65 kg Melissa Bridenthal HIGH DENSITY PRESS OPERATOR - STOREHOUSE CLERK Work Phone: [facility] 07-17-2024 08:19-0500 Diastolic blood pressure 74 mm[Hg] Melissa Bridenthal HIGH DENSITY PRESS OPERATOR - STOREHOUSE CLERK Work Phone: [facility] 07-17-2024 08:19-0500 Heart rate 79 /min Melissa Bridenthal HIGH DENSITY PRESS OPERATOR - STOREHOUSE CLERK Work Phone: [facility] 07-17-2024 08:19-0500 Systolic blood pressure 138 mm[Hg] Melissa Bridenthal HIGH DENSITY PRESS OPERATOR - STOREHOUSE CLERK Work Phone: [facility] 07-17-2024 07:32-0500 Body height 167.6 cm Melissa Bridenthal HIGH DENSITY PRESS OPERATOR - STOREHOUSE CLERK Work Phone: [facility] 07-17-2024 07:32-0500 Body mass index (BMI) [Ratio] 30.15 kg/m2 Melissa Bridenthal HIGH DENSITY PRESS OPERATOR - STOREHOUSE CLERK [facility] 07-17-2024 07:32-0500 Body temperature 98.71 [degF] Melissa Bridenthal HIGH DENSITY PRESS OPERATOR - STOREHOUSE CLERK Work Phone: [facility] 07-17-2024 07:32-0500 Body weight 84.73 kg Melissa Bridenthal HIGH DENSITY PRESS OPERATOR - STOREHOUSE CLERK Work Phone: [facility] 07-17-2024 07:32-0500 Respiratory rate 18 /min Melissa Bridenthal HIGH DENSITY PRESS OPERATOR - STOREHOUSE CLERK Work Phone: [facility] 07-17-2024 07:32-0500 SaO2% (BldA) [Mass fraction] 96 % Melissa Bridenthal HIGH DENSITY PRESS OPERATOR - STOREHOUSE CLERK Work Phone: [facility] 02-14-2024 08:42-0400 Diastolic blood pressure 74 mm[Hg] Melissa Bridenthal HIGH DENSITY PRESS OPERATOR - STOREHOUSE CLERK Work Phone: [facility] 02-14-2024 08:42-0400 Systolic blood pressure 136 mm[Hg] Melissa Bridenthal HIGH DENSITY PRESS OPERATOR - STOREHOUSE CLERK Work Phone: [facility] 02-14-2024 08:18-0400 Body mass index (BMI) [Ratio] 30.18 kg/m2 Melissa Bridenthal HIGH DENSITY PRESS OPERATOR - STOREHOUSE CLERK Work Phone: [facility] 02-14-2024 08:18-0400 Body temperature 97.7 [degF] Melissa Bridenthal HIGH DENSITY PRESS OPERATOR - STOREHOUSE CLERK Work Phone: [facility] 02-14-2024 08:18-0400 Body weight 84.82 kg Melissa Bridenthal HIGH DENSITY PRESS OPERATOR - STOREHOUSE CLERK Work Phone: [facility] 02-14-2024 08:18-0400 Heart rate 94 /min Melissa Bridenthal HIGH DENSITY PRESS OPERATOR - STOREHOUSE CLERK Work Phone: [facility] 02-14-2024 08:18-0400 Respiratory rate 16 /min Melissa Bridenthal HIGH DENSITY PRESS OPERATOR - STOREHOUSE CLERK Work Phone: [facility] 02-14-2024 08:18-0400 SaO2% (BldA) [Mass fraction] 95 % Melissa Bridenthal HIGH DENSITY PRESS OPERATOR - STOREHOUSE CLERK Work Phone: [facility] 01-12-2024 08:12-0400 Diastolic blood pressure 70 mm[Hg] Melissa Bridenthal HIGH DENSITY PRESS OPERATOR - STOREHOUSE CLERK Work Phone: [facility] 01-12-2024 08:12-0400 Systolic blood pressure 138 mm[Hg] Melissa Bridenthal HIGH DENSITY PRESS OPERATOR - STOREHOUSE CLERK Work Phone: [facility] 01-12-2024 07:44-0400 Body mass index (BMI) [Ratio] 30.38 kg/m2 Melissa Bridenthal HIGH DENSITY PRESS OPERATOR - STOREHOUSE CLERK Work Phone: [facility] 01-12-2024 07:44-0400 Body temperature 97.7 [degF] Melissa Bridenthal HIGH DENSITY PRESS OPERATOR - STOREHOUSE CLERK Work Phone: [facility] 01-12-2024 07:44-0400 Body weight 85.37 kg Melissa Bridenthal HIGH DENSITY PRESS OPERATOR - STOREHOUSE CLERK Work Phone: [facility] 01-12-2024 07:44-0400 Heart rate 81 /min Melissa Bridenthal HIGH DENSITY PRESS OPERATOR - STOREHOUSE CLERK Work Phone: [facility] 01-12-2024 07:44-0400 Respiratory rate 14 /min Melissa Bridenthal HIGH DENSITY PRESS OPERATOR - STOREHOUSE CLERK Work Phone: [facility] 01-12-2024 07:44-0400 SaO2% (BldA) [Mass fraction] 98 % Melissa Bridenthal HIGH DENSITY PRESS OPERATOR - STOREHOUSE CLERK Work Phone: [facility] 09-09-2023 07:46-0500 Body height 167.6 cm Melissa Bridenthal HIGH DENSITY PRESS OPERATOR - STOREHOUSE CLERK Work Phone: [facility] 09-09-2023 07:46-0500 Body mass index (BMI) [Ratio] 29.54 kg/m2 Melissa Bridenthal HIGH DENSITY PRESS OPERATOR - STOREHOUSE CLERK Work Phone: [facility] 09-09-2023 07:46-0500 Body weight 83.01 kg Melissa Bridenthal HIGH DENSITY PRESS OPERATOR - STOREHOUSE CLERK Work Phone: [facility] 07-12-2023 08:20-0500 Diastolic blood pressure 78 mm[Hg] Melissa Bridenthal HIGH DENSITY PRESS OPERATOR - STOREHOUSE CLERK Work Phone: [facility] 07-12-2023 08:20-0500 Systolic blood pressure 145 mm[Hg] Melissa Bridenthal HIGH DENSITY PRESS OPERATOR - STOREHOUSE CLERK Work Phone: [facility] 07-12-2023 07:56-0500 Body height 167.6 cm Melissa Bridenthal HIGH DENSITY PRESS OPERATOR - STOREHOUSE CLERK Work Phone: [facility] 07-12-2023 07:56-0500 Body mass index (BMI) [Ratio] 29.73 kg/m2 Melissa Bridenthal HIGH DENSITY PRESS OPERATOR - STOREHOUSE CLERK Work Phone: [facility] 07-12-2023 07:56-0500 Body temperature 97.81 [degF] Melissa Bridenthal HIGH DENSITY PRESS OPERATOR - STOREHOUSE CLERK Work Phone: [facility] 07-12-2023 07:56-0500 Body weight 83.55 kg Melissa Bridenthal HIGH DENSITY PRESS OPERATOR - STOREHOUSE CLERK Work Phone: [facility] 07-12-2023 07:56-0500 Heart rate 78 /min Melissa Bridenthal HIGH DENSITY PRESS OPERATOR - STOREHOUSE CLERK Work Phone: [facility] 07-12-2023 07:56-0500 Respiratory rate 16 /min Melissa Bridenthal HIGH DENSITY PRESS OPERATOR - STOREHOUSE CLERK Work Phone: [facility] 07-12-2023 07:56-0500 SaO2% (BldA) [Mass fraction] 98 % Melissa Bridenthal HIGH DENSITY PRESS OPERATOR - STOREHOUSE CLERK Work Phone: [facility] 03-15-2023 08:42-0400 Body height 167.6 cm Rolando Black HIGH DENSITY PRESS OPERATOR - STOREHOUSE CLERK Work Phone: [facility] 03-15-2023 08:42-0400 Body mass index (BMI) [Ratio] 29.99 kg/m2 Rolando Carrillo HIGH DENSITY PRESS OPERATOR - STOREHOUSE CLERK Work Phone: [facility] 03-15-2023 08:42-0400 Body temperature 96.8 [degF] Rolando Carrillo HIGH DENSITY PRESS OPERATOR - STOREHOUSE CLERK Work Phone: [facility] 03-15-2023 08:42-0400 Body weight 84.28 kg Rolando Carrillo HIGH DENSITY PRESS OPERATOR - STOREHOUSE CLERK Work Phone: [facility] 03-15-2023 08:42-0400 Diastolic blood pressure 84 mm[Hg] Rolando Carrillo HIGH DENSITY PRESS OPERATOR - STOREHOUSE CLERK Work Phone: [facility] 03-15-2023 08:42-0400 Heart rate 87 /min Rolando Carrillo APRN - STOREHOUSE CLERK Work Phone: [facility] 03-15-2023 08:42-0400 Systolic blood pressure 193 mm[Hg] Rolando Carrillo HIGH DENSITY PRESS OPERATOR - STOREHOUSE CLERK Work Phone: [facility] 02-25-2023 10:28-0400 Body temperature 97 [degF] Pierre Jordan MD Work Phone: [facility] 02-25-2023 10:28-0400 Diastolic blood pressure 65 mm[Hg] Pierre Jordan MD Work Phone: [facility] 02-25-2023 10:28-0400 Heart rate 70 /min Pierre Jordan MD Work Phone: [facility] 02-25-2023 10:28-0400 Respiratory rate 16 /min Pierre Jordan MD Work Phone: [facility] 02-25-2023 10:28-0400 SaO2% (BldA) [Mass fraction] 95 % Pierre Jordan MD Work Phone: [facility] 02-25-2023 10:28-0400 Systolic blood pressure 147 mm[Hg] Pierre Jordan MD Work Phone: [facility] 02-25-2023 08:29-0400 Body height 167.6 cm Pierre Jordan MD Work Phone: [facility] 02-25-2023 08:29-0400 Body mass index (BMI) [Ratio] 28.73 kg/m2 Pierre Jordan MD Work Phone: [facility] 02-25-2023 08:29-0400 Body weight 80.74 kg Pierre Jordan MD Work Phone: [facility] 01-05-2023 09:52-0400 Diastolic blood pressure 80 mm[Hg] Melissa Bridenthal HIGH DENSITY PRESS OPERATOR - STOREHOUSE CLERK Work Phone: [facility] 01-05-2023 09:52-0400 Heart rate 60 /min Melissa Bridenthal HIGH DENSITY PRESS OPERATOR - STOREHOUSE CLERK Work Phone: [facility] 01-05-2023 09:52-0400 Systolic blood pressure 142 mm[Hg] Melissa Bridenthal HIGH DENSITY PRESS OPERATOR - STOREHOUSE CLERK Work Phone: [facility] 01-05-2023 09:05-0400 Body height 167.6 cm Melissa Bridenthal HIGH DENSITY PRESS OPERATOR - STOREHOUSE CLERK Work Phone: [facility] 01-05-2023 09:05-0400 Body mass index (BMI) [Ratio] 29.21 kg/m2 Melissa Bridenthal HIGH DENSITY PRESS OPERATOR - STOREHOUSE CLERK Work Phone: [facility] 01-05-2023 09:05-0400 Body weight 82.1 kg Melissa Bridenthal HIGH DENSITY PRESS OPERATOR - STOREHOUSE CLERK Work Phone: [facility] 01-05-2023 09:05-0400 SaO2% (BldA) [Mass fraction] 98 % Melissa Bridenthal HIGH DENSITY PRESS OPERATOR - STOREHOUSE CLERK Work Phone: [facility] 08-26-2022 09:43-0500 Body mass index (BMI) [Ratio] 30.12 kg/m2 Melissa Bridenthal HIGH DENSITY PRESS OPERATOR - STOREHOUSE CLERK Work Phone: [facility] 08-26-2022 09:43-0500 Body weight 82.1 kg Melissa Bridenthal HIGH DENSITY PRESS OPERATOR - STOREHOUSE CLERK Work Phone: [facility] 06-03-2022 16:27-0400 Body temperature 98.1 [degF] [facility] 06-03-2022 16:27-0400 Diastolic blood pressure 64 mm[Hg] [facility] 06-03-2022 16:27-0400 Heart rate 64 /min [facility] 06-03-2022 16:27-0400 Respiratory rate 16 /min [facility] 06-03-2022 16:27-0400 SaO2% (BldA) [Mass fraction] 97 % [facility] 06-03-2022 16:27-0400 Systolic blood pressure 118 mm[Hg] [facility] 06-03-2022 11:45-0400 Inhaled oxygen flow rate 4 L/min [facility] 06-03-2022 06:57-0400 Body height 170.18 cm [facility] 06-03-2022 06:57-0400 Body mass index (BMI) [Ratio] 28.5 kg/m2 [facility] 06-03-2022 06:57-0400 Body weight 82.55 kg [facility] Encounters Encounter Date Encounter Type Care Provider Facility Start: 06-10-2025 End: 06-11-2025 Refill Melissa Roy APRN - STOREHOUSE CLERK Work Phone: [facility] [facility] Comment on above: Essential (primary) hypertension; Essential hypertension; Hyperlipidemia, unspecified hyperlipidemia type Start: 01-17-2025 End: 01-17-2025 Subsequent hospital visit by physician Melissa Dorman CNP Work Phone: [facility] Radiology Comment on above: Age-related osteopor osis without current pathological fracture Start: 01-17-2025 End: 01-17-2025 ambulatory MELISSA LESIA Start: 01-09-2025 End: 03-11-2025 Follow-up encounter Melissa Roy APRN - [place] Work Phone: [facility] Comment on above: Basic metabolic pane l, DEXA bone density axial skeleton Start: 01-08-2025 End: 01-08-2025 Office outpatient visit 15 minutes Melissa Lesiarandal HIGH DENSITY PRESS OPERATOR - STOREHOUSE CLERK Work Phone: [facility] Comment on above: Essential (primary) hypertension (Primary Dx); Mixed hyperlipidemia; Decreased calculated glomerular filtration rate (GFR); Age-related osteoporosis without current pathological fracture; Anxiety Start: 01-08-2025 End: 01-08-2025 Office outpatient visit 25 minutes Melissa Lesiaenthal HIGH DENSITY PRESS OPERATOR - STOREHOUSE CLERK Work Phone: [facility] Comment on above: Essential (primary) hypertension (Primary Dx); Mixed hyperlipidemia; Decreased calculated glomerular filtration rate (GFR); Age-related osteoporosis without current pathological fracture; Anxiety Start: 01-08-2025 End: 01-08-2025 ambulatory [facility] Start: 12-16-2024 End: 12-18-2024 Refill Melissa Sarahal HIGH DENSITY PRESS OPERATOR - STOREHOUSE CLERK Work Phone: [facility] Comment on above: Essential (primary) hypertension; Hyperlipidemia, unspecified hyperlipidemia type; Essential hypertension Start: 09-11-2024 End: 09-11-2024 Subsequent hospital visit by physician Melissa Roy HIGH DENSITY PRESS OPERATOR - STOREHOUSE CLERK Work Phone: [facility] Comment on above: Encounter for screen ing mammogram for malignant neoplasm of breast Start: 09-11-2024 End: 09-11-2024 ambulatory [facility] Start: 07-17-2024 End: 07-17-2024 Assay of hemosiderin, quant Melissa Lesiaenthal HIGH DENSITY PRESS OPERATOR - STOREHOUSE CLERK Work Phone: [facility] Work Phone: Start: 07-17-2024 End: 07-17-2024 Patient encounter procedure Melissa Bridenthal HIGH DENSITY PRESS OPERATOR - STOREHOUSE CLERK Work Phone: [facility] Comment on above: Routine general medi greer examination at health care facility (Primary Dx); Mixed hyperlipidemia; Essential hypertension; Age-related osteoporosis without current pathological fracture; Anxiety; Decreased calculated glomerular filtration rate (GFR); Anemia, unspecified type; Encounter for screening mammogram for malignant neoplasm of breast; Class 1 obesity due to excess calories with serious comorbidity and body mass index (BMI) of 30.0 to 30.9 in adult Start: 07-17-2024 End: 07-17-2024 ambulatory [facility] Start: 07-17-2024 End: 07-17-2024 Encounter for general adult medical examination without abnormal findings [facility] Start: 06-27-2024 End: 06-27-2024 Refill Melissa Bridenthal HIGH DENSITY PRESS OPERATOR - STOREHOUSE CLERK Work Phone: [facility] Comment on above: Essential hypertensi on; Hyperlipidemia, unspecified hyperlipidemia type; Essential (primary) hypertension Start: 02-14-2024 End: 02-14-2024 Office outpatient visit 15 minutes Melissa Lesiaenthal HIGH DENSITY PRESS OPERATOR - STOREHOUSE CLERK Work Phone: [facility] Comment on above: Anxiety (Primary Dx) ; Essential hypertension; Decreased calculated glomerular filtration rate (GFR) Start: 02-14-2024 End: 02-14-2024 Office outpatient visit 25 minutes Melissa Bridenthal HIGH DENSITY PRESS OPERATOR - STOREHOUSE CLERK Work Phone: [facility] Comment on above: Anxiety (Primary Dx) ; Essential hypertension; Decreased calculated glomerular filtration rate (GFR) Start: 01-12-2024 End: 01-12-2024 Office outpatient visit 25 minutes Melissa Bridenthal HIGH DENSITY PRESS OPERATOR - STOREHOUSE CLERK Work Phone: [facility] Comment on above: Essential hypertensi on (Primary Dx); Mixed hyperlipidemia; Anxiety Start: 01-03-2024 Refill Melissa Lesiaen thal HIGH DENSITY PRESS OPERATOR - STOREHOUSE CLERK Work Phone: [facility] Comment on above: Essential (primary) hypertension; Hyperlipidemia, unspecified hyperlipidemia type; Essential hypertension Start: 09-09-2023 End: 09-09-2023 Subsequent hospital visit by physician Melissa Roy HIGH DENSITY PRESS OPERATOR - STOREHOUSE CLERK Work Phone: [facility] Comment on above: Encounter for screen ing mammogram for malignant neoplasm of breast Start: 07-12-2023 End: 07-13-2023 ambulatory Nicholas Angelo Facility:[facility] Start: 07-12-2023 End: 07-12-2023 ambulatory [facility] Work Phone: Start: 07-12-2023 End: 07-12-2023 Assay of hemosiderin, quant Melissa Roy HIGH DENSITY PRESS OPERATOR - STOREHOUSE CLERK Work Phone: [facility] Work Phone: Start: 07-12-2023 End: 07-12-2023 Patient encounter procedure Melissa Roy HIGH DENSITY PRESS OPERATOR - STOREHOUSE CLERK Work Phone: [facility] Comment on above: Routine general medi greer examination at health care facility (Primary Dx); Essential hypertension; Anemia, unspecified type; Mixed hyperlipidemia; Essential (primary) hypertension; Anxiety; Hyperlipidemia, unspecified hyperlipidemia type; Overweight (BMI 25.0-29.9); Encounter for screening mammogram for malignant neoplasm of breast Start: 03-15-2023 End: 03-15-2023 Postop follow up visit related to original px Rolando Carrillo HIGH DENSITY PRESS OPERATOR - STOREHOUSE CLERK Work Phone: [facility] Comment on above: Postoperative examin ation (Primary Dx); S/P laparoscopic appendectomy Start: 02-25-2023 End: 02-25-2023 Subsequent hospital visit by physician Pierre Jordan MD Work Phone: [facility] Comment on above: Benign neoplasm of c olon, unspecified Start: 01-17-2023 Alpesh Caballero HIGH DENSITY PRESS OPERATOR - STOREHOUSE CLERK Work Phone: [facility] Comment on above: Essential hypertensi on Essential (primary) hypertension Start: 01-12-2023 End: 01-12-2023 ambulatory Juan CarlosLawrence Tavera Facility:[facility] Start: 01-05-2023 End: 01-05-2023 Office outpatient visit 25 minutes Melissa Roy HIGH DENSITY PRESS OPERATOR - STOREHOUSE CLERK Work Phone: [facility] Comment on above: Essential hypertensi on (Primary Dx); Localized, primary osteoarthritis; Mixed hyperlipidemia; Anxiety; Overweight (BMI 25.0-29.9); Age-related osteoporosis without current pathological fracture; Anemia, unspecified type Start: 12-09-2022 Refill Melissa Bridmadhavi gray HIGH DENSITY PRESS OPERATOR - STOREHOUSE CLERK Work Phone: [facility] Comment on above: Iron deficiency Start: 09-29-2022 Patient encounter procedure [facility]-Laboratory, Specimen Start: 09-29-2022 End: 09-29-2022 ambulatory [facility] Facility:[facility] Start: 09-17-2022 End: 09-17-2022 Patient encounter procedure [facility]-Cat Scan, [facility] Start: 09-17-2022 End: 09-17-2022 ambulatory [facility] Work Phone: Start: 09-14-2022 End: 09-14-2022 Patient encounter procedure [facility]Labor[facility], Specimen Start: 09-14-2022 End: 09-14-2022 ambulatory [facility] Work Phone: Start: 09-08-2022 End: 09-08-2022 Subsequent hospital visit by physician Ellie Caballero HIGH DENSITY PRESS OPERATOR - STOREHOUSE CLERK Work Phone: [facility] Radiology Comment on above: Screening for osteop orosis; Menopause Screening mammogram for breast cancer Start: 08-26-2022 ambulatory Sherin Laws C linical Communication Start: 08-26-2022 Patient encounter procedure Sherin Laws Clinical Communication Start: 08-26-2022 End: 08-26-2022 Office outpatient visit 15 minutes Melissa Roy HIGH DENSITY PRESS OPERATOR - STOREHOUSE CLERK Work Phone: [facility] Comment on above: Acute cystitis witho ut hematuria (Primary Dx); Dysuria Start: 06-03-2022 End: 06-03-2022 Admission to same day surgery center [facility] Start: 06-03-2022 End: 06-03-2022 ambulatory [facility] Work Phone: Start: 05-22-2022 End: 05-22-2022 ambulatory [facility] Work Phone: Start: 05-22-2022 End: 05-22-2022 Patient encounter procedure [facility]-Cat Scan, [facility] Start: 09-02-2020 End: 09-02-2020 Subsequent hospital visit by physician Nicholas Angelo Work Phone: [facility] Comment on above: Arrived Start: 08-31-2019 End: 08-31-2019 Subsequent hospital visit by physician Ellie Caballero HIGH DENSITY PRESS OPERATOR - STOREHOUSE CLERK Work Phone: [facility] Comment on above: Arrived Start: 09-16-2018 Patient encounter procedure Facility:[facility] Procedures Date Procedure Procedure Detail Performing Clinician Start: 01-17-2025 Dxa bone density nabor dy 1/> sites axial skel Melissa Bridenthal HIGH DENSITY PRESS OPERATOR - STOREHOUSE CLERK Work Phone: Start: 01-08-2025 Basic metabolic pane l calcium total Melissa Bridenthal HIGH DENSITY PRESS OPERATOR - STOREHOUSE CLERK Work Phone: Start: 01-05-2025 Adult depression scr eening assessment Melissa Bridenthal HIGH DENSITY PRESS OPERATOR - STOREHOUSE CLERK Work Phone: Start: 09-11-2024 Screening digital br east tomosynthesis bi Melissa Bridenthal HIGH DENSITY PRESS OPERATOR - STOREHOUSE CLERK Work Phone: Start: 07-17-2024 Adult depression scr eening assessment Melissa Bridenthal HIGH DENSITY PRESS OPERATOR - STOREHOUSE CLERK Work Phone: Start: 07-17-2024 Lipid 1996 panel - S cam or Plasma Melissa Bridenthal HIGH DENSITY PRESS OPERATOR - STOREHOUSE CLERK Work Phone: Start: 02-14-2024 Urine albumin quantitative Melissa Bridenthal HIGH DENSITY PRESS OPERATOR - STOREHOUSE CLERK Work Phone: Start: 09-09-2023 Screening digital br east tomosynthesis bi Melissa Bridenthal HIGH DENSITY PRESS OPERATOR - STOREHOUSE CLERK Work Phone: Start: 07-12-2023 Urine culture Start: 07-12-2023 Lipid 1996 panel - S cam or Plasma Melissa Roy HIGH DENSITY PRESS OPERATOR - STOREHOUSE CLERK Work Phone: Start: 07-09-2023 Adult depression scr eening assessment Melissacaroline Roy HIGH DENSITY PRESS OPERATOR - STOREHOUSE CLERK Work Phone: Start: 09-17-2022 CT of abdomen and pe lvis without contrast Start: 09-08-2022 Dxa bone density nabor dy 1/> sites axial skel Ellie Nava Carl HIGH DENSITY PRESS OPERATOR - STOREHOUSE CLERK Work Phone: Start: 09-08-2022 End: 09-08-2022 Mammography Ellie Nava Carl HIGH DENSITY PRESS OPERATOR - STOREHOUSE CLERK Work Phone: Start: 08-26-2022 Urnls dip stick/tabl et rgnt non-auto w/o micrscp Melissa Smithal HIGH DENSITY PRESS OPERATOR - STOREHOUSE CLERK Work Phone: Start: 07-08-2022 Lipid 1996 panel - S cam or Plasma Sherin Don RN Start: 07-03-2022 Adult depression scr eening assessment Melissa Roy HIGH DENSITY PRESS OPERATOR - STOREHOUSE CLERK Work Phone: Start: 06-03-2022 Radiologic examinati on of knee Start: 06-03-2022 Total Knee Replaceme nt Robotic Arm Lorenza (Left) Start: 05-22-2022 MRI of lower extremity Start: 09-03-2021 Mammography Sherin aceves RN Start: 09-02-2020 Screening digital br east tomosynthesis bi Nicholas Angelo Work Phone: Nasal Screen MRSA/MSSA Nasal Screen MRSA/MSSA Urine culture Plan of Treatment Date Care Activity Detail Author Start: 07-17-2029 Lipid panel Lipid Panel [facility] Start: 09-08-2028 Colon cancer screen colonoscopy Colon cancer screen colonoscopy [facility] Work Phone: Start: 09-08-2028 Screening for malign ant neoplasm of colon Colon cancer screen colonoscopy [place] Start: 07-12-2028 Lipid panel Lipid Panel [facility] Start: 07-08-2027 Lipid panel Lipid Panel [facility] Start: 01-17-2027 Screening for osteoporosis Bone Density Scan [facility] Start: 01-05-2026 Depression Screening Depression Scre ening [facility] Start: 07-18-2025 End: 07-18-2025 Patient encounter procedure 07/18/2025 7:40 AM EST Office Visit [facility] [address] [place] [address] [place] [address] Bridenthal, Melissa, HIGH DENSITY PRESS OPERATOR - STOREHOUSE CLERK [address] [place], [place] [id number] [facility] Start: 07-17-2025 Depression Screening Depression Scre ening [facility] Start: 04-23-2025 Influenza vaccination [facility] Start: 02-19-2025 Influenza vaccination Influenza Vacc ine (#1) [facility] Comment on above: Postponed from 04/23 (Patient Refused) Start: 01-17-2025 End: 01-17-2025 Patient encounter procedure 01/17/2025 8:00 AM EDT Appointment [facility] Radiology [address] [place] [id number] Bridenthal, Melissa, HIGH DENSITY PRESS OPERATOR - STOREHOUSE CLERK [address] [place] [phone] [facility] Radiology Start: 01-17-2025 Subsequent hospital visit by physician 01/17/2025 8:00 AM EDT Hospital Encounter [facility] Radiology [address] [place] [phone] Bridenthal, Melissa, HIGH DENSITY PRESS OPERATOR - STOREHOUSE CLERK [address] [place], [place] [id number] [facility] Radiology Start: 01-08-2025 End: 01-08-2026 Basic metabolic 1998 panel - Serum or Plasma Basic metabolic panel Lab Routine Essential (primary) hypertension Mixed hyperlipidemia Decreased calculated glomerular filtration rate (GFR) Expected: 01/08/2025 (Approximate), Expires: 01/08/2026 [facility] Comment on above: Expected: 01/08/2025 (Approximate), Expires: 01/08/2026 Start: 01-08-2025 End: 01-05-2026 DXA Skeletal system Views for bone density DEXA bone density peripheral Imaging Routine Age-related osteoporosis without current pathological fracture Expected: 01/08/2025, Expires: 01/05/2026 [facility] [employer] Work Phone: Comment on above: Expected: 01/08/2025 , Expires: 01/05/2026 Start: 01-08-2025 End: 01-05-2026 DXA Skeletal system.axial Views for bone density DEXA bone density axial skeleton Imaging Routine Age-related osteoporosis without current pathological fracture Expected: 01/08/2025, Expires: 01/05/2026 [facility] [employer] Work Phone: Comment on above: Expected: 01/08/2025 , Expires: 01/05/2026 Start: 01-08-2025 End: 01-08-2025 Patient encounter procedure 01/08/2025 8:20 AM EDT Office Visit [facility] [address] [place] [address] Melissa Roy, HIGH DENSITY PRESS OPERATOR - STOREHOUSE CLERK [address] [place] [address] [facility] Start: 09-11-2024 End: 09-11-2024 Patient encounter procedure 09/11/2024 11:00 AM EST Appointment [facility] [address] [place] [address] Bridenthal, Melissa, HIGH DENSITY PRESS OPERATOR - STOREHOUSE CLERK [address] [place] [address] [facility] Start: 09-08-2024 Screening for osteoporosis Bone Density Scan [facility] Start: 08-23-2024 End: 09-16-2025 DBT Breast - bilateral screening Bilateral screening mammogram with tomosynthesis Imaging Routine Encounter for screening mammogram for malignant neoplasm of breast Expected: 08/23/2024, Expires: 09/16/2025 [facility] Comment on above: Expected: 08/23/2024 , Expires: 09/16/2025 Start: 08-23-2024 Medicare Advantage Annual Wellness Visit Medicare Advantage Annual Wellness Visit [facility] Start: 07-17-2024 End: 07-17-2025 CBC W Auto Differential panel - Blood CBC auto differential Lab Routine Anemia, unspecified type Expected: 07/17/2024 (Approximate), Expires: 07/17/2025 [facility] Comment on above: Expected: 07/17/2024 (Approximate), Expires: 07/17/2025 Start: 07-17-2024 End: 07-17-2025 Comprehensive metabolic 1998 panel - Serum or Plasma Comprehensive metabolic panel Lab Routine Essential hypertension Expected: 07/17/2024 (Approximate), Expires: 07/17/2025 [facility] Comment on above: Expected: 07/17/2024 (Approximate), Expires: 07/17/2025 Start: 07-17-2024 End: 07-17-2025 Lipid 1996 panel - Serum or Plasma Lipid panel Lab Routine Mixed hyperlipidemia Expected: 07/17/2024 (Approximate), Expires: 07/17/2025 [facility] Work Phone: Comment on above: Expected: 07/17/2024 (Approximate), Expires: 07/17/2025 Start: 07-17-2024 End: 07-17-2024 Patient encounter procedure [facility] Start: 07-09-2024 COVID-19 Vaccine ( season) COVID-19 Vaccine ( season) [facility] Comment on above: Postponed from 04/23 (Patient Refused) Start: 07-09-2024 Depression Screening Depression Scre ening [facility] Start: 07-09-2024 DTaP/Tdap/Td Vaccine s (2 - Td or Tdap) DTaP/Tdap/Td Vaccines (2 - Td or Tdap) [facility] Comment on above: Postponed from 04/19 (Patient Refused) Start: 07-09-2024 RSV Immunization age d 60 or older (1 - 1-dose 60+ series) RSV Immunization aged 60 or older (1 - 1-dose 60+ series) [facility] Comment on above: Postponed from 11/05 (Patient Refused) Start: 07-09-2024 RSV Immunization for Adults (1 - 1-dose 75+ series) RSV Immunization for Adults (1 - 1-dose 75+ series) [facility] Comment on above: Postponed from 11/05 (Patient Refused) Start: 07-09-2024 Zoster Vaccines (1 o f 2) Zoster Vaccines (1 of 2) [facility] Comment on above: Postponed from 11/05 (Patient Refused) Start: 06-23-2024 Medicare Advantage Annual Wellness Visit Medicare Advantage Annual Wellness Visit [facility] Comment on above: Postponed from 08/23 (Other Medical Reasons) Start: 04-23-2024 COVID-19 Vaccine () COVID-19 Vaccine () [facility] Start: 04-23-2024 Influenza vaccination [facility] Start: 02-20-2024 Influenza vaccination Influenza Vacc ine (#1) [facility] Comment on above: Postponed from 04/23 (Patient Refused) Start: 02-14-2024 End: 02-10-2025 Microalbumin/Creatinine panel in random Urine Microalbumin / creatinine, urine ratio Lab Routine Essential hypertension Expected: 02/14/2024 (Approximate), Expires: 02/10/2025 [facility] Work Phone: Comment on above: Expected: 02/14/2024 (Approximate), Expires: 02/10/2025 Start: 02-14-2024 End: 02-14-2024 Patient encounter procedure 02/14/2024 8:20 AM EDT Office Visit [facility] [address] [facility] [address] [place], [place] [phone] Melissa Roy, HIGH DENSITY PRESS OPERATOR - STOREHOUSE CLERK [address] [place], [place] [phone] [facility] Start: 01-12-2024 End: 01-11-2025 Basic metabolic 1998 panel - Serum or Plasma Basic metabolic panel Lab Routine Essential hypertension Expected: 01/12/2024 (Approximate), Expires: 01/11/2025 [facility] Work Phone: Comment on above: Expected: 01/12/2024 (Approximate), Expires: 01/11/2025 Start: 01-12-2024 End: 01-12-2024 Patient encounter procedure 01/12/2024 7:40 AM EDT Office Visit [facility] [address] [place] [address] [place] [address] Bridenthal, Melissa, HIGH DENSITY PRESS OPERATOR - STOREHOUSE CLERK [address] [place] [address] [place] [address] [facility] Start: 01-10-2024 End: 01-10-2024 Patient encounter procedure 01/10/2024 7:40 AM EDT Office Visit [facility] [address] [place] [address] [place] [address] Bridenthal, Melissa, HIGH DENSITY PRESS OPERATOR - STOREHOUSE CLERK [address] [place] [address] [place] [address] [facility] Start: 09-08-2023 Screening for malign ant neoplasm of breast Mammogram [facility] Start: 09-08-2023 Screening for osteoporosis Bone Density Scan [facility] Start: 08-23-2023 Medicare Advantage Annual Wellness Visit Medicare Advantage Annual Wellness Visit [facility] Start: 07-12-2023 End: 07-09-2024 CBC panel - Blood by Automated count CBC Lab Routine Anemia, unspecified type Expected: 07/12/2023 (Approximate), Expires: 07/09/2024 [facility] Comment on above: Expected: 07/12/2023 (Approximate), Expires: 07/09/2024 Start: 07-12-2023 End: 07-09-2024 Comprehensive metabolic 1997 panel - Serum or Plasma Comprehensive metabolic panel Lab Routine Essential hypertension Expected: 07/12/2023 (Approximate), Expires: 07/09/2024 [facility] Work Phone: Comment on above: Expected: 07/12/2023 (Approximate), Expires: 07/09/2024 Start: 07-12-2023 End: 09-11-2024 DBT Breast - bilateral screening Bilateral screening mammogram with tomosynthesis Imaging Routine Encounter for screening mammogram for malignant neoplasm of breast Expected: 07/12/2023, Expires: 09/11/2024 [facility] Comment on above: Expected: 07/12/2023 , Expires: 09/11/2024 Start: 07-12-2023 End: 07-09-2024 Lipid 1996 panel - Serum or Plasma Lipid panel Lab Routine Mixed hyperlipidemia Expected: 07/12/2023 (Approximate), Expires: 07/09/2024 [facility] Comment on above: Expected: 07/12/2023 (Approximate), Expires: 07/09/2024 Start: 07-12-2023 End: 07-12-2023 Patient encounter procedure [facility] Start: 07-08-2023 COVID-19 Vaccine (3 - Booster for Pfizer series) COVID-19 Vaccine (3 - Booster for Pfizer series) [facility] Comment on above: Postponed from 08/20 (Patient Refused) Start: 07-08-2023 DTaP/Tdap/Td Vaccine s (2 - Td or Tdap) DTaP/Tdap/Td Vaccines (2 - Td or Tdap) [facility] Comment on above: Postponed from 04/19 (Patient Refused) Start: 07-08-2023 Zoster Vaccines (1 o f 2) Zoster Vaccines (1 of 2) [facility] Comment on above: Postponed from 11/05 (Patient Refused) Start: 07-03-2023 Depression Screening Depression Scre ening [facility] Start: 04-23-2023 Influenza vaccination S [facility] Start: 03-15-2023 End: 03-15-2023 Patient encounter procedure 03/15/2023 9:00 AM EDT Office Visit [facility] [address] [place] [address] Pierre Jordan MD [address] [place] [address] [address] [place] [address] [facility] Start: 02-25-2023 End: 02-25-2023 Laparoscopic appendectomy LAPAROSCOPY APPENDECTOMY Benign neoplasm of colon, unspecified 02/25/2023 9:00 AM EDT [facility] Operating Room Start: 02-19-2023 Influenza vaccination Influenza Vacc ine (#1) [facility] Comment on above: Postponed from 04/23 (Patient Refused) Start: 01-05-2023 End: 01-06-2024 CBC W Auto Differential panel - Blood CBC auto differential Lab Routine Anemia, unspecified type Expected: 01/05/2023 (Approximate), Expires: 01/06/2024 [facility] Work Phone: Comment on above: Expected: 01/05/2023 (Approximate), Expires: 01/06/2024 Start: 01-05-2023 End: 01-06-2024 Ferritin [Mass/volume] in Serum or Plasma Ferritin Lab Routine Anemia, unspecified type Expected: 01/05/2023 (Approximate), Expires: 01/06/2024 [facility] Comment on above: Expected: 01/05/2023 (Approximate), Expires: 01/06/2024 Start: 01-05-2023 End: 01-06-2024 Iron and Iron binding capacity panel - Serum or Plasma Iron and TIBC Lab Routine Anemia, unspecified type Expected: 01/05/2023 (Approximate), Expires: 01/06/2024 [facility] Comment on above: Expected: 01/05/2023 (Approximate), Expires: 01/06/2024 Start: 01-05-2023 End: 01-05-2023 Patient encounter procedure [facility] Start: 09-29-2022 [facility] Start: 09-08-2022 End: 09-08-2022 Patient encounter procedure 09/08/2022 Appointment Radiology [facility] Start: 09-03-2022 Screening for malign ant neoplasm of breast Mammogram [facility] Start: 09-02-2022 Screening for malign ant neoplasm of breast Breast cancer screen [place], [place] Start: 08-26-2022 End: 08-26-2023 Bacteria identified in Urine by Culture Urine culture (clean catch) Microbiology Routine Acute cystitis without hematuria Expected: 08/26/2022 (Approximate), Expires: 08/26/2023 [facility] Work Phone: Comment on above: Expected: 08/26/2022 (Approximate), Expires: 08/26/2023 Start: 06-03-2022 Anesth open/surg art hrs total knee arthroplasty ANESTH KNEE ARTHROPLASTY [facility] Start: 06-03-2022 Arthrp kne condyle&platu medial&lat compartments TOTAL KNEE ARTHROPLASTY [facility] Start: 06-03-2022 Injection aa&/strd sciatic nerve NJX AA&/STRD SCIATIC NRV IMG [facility] Start: 06-03-2022 Application of ice collar, cap or bag [facility] Start: 06-03-2022 Exercises [facility] Start: 06-03-2022 Incentive spirometry [facility] Start: 06-03-2022 Neurovascular assessment [facility] Start: 06-03-2022 Patient discharge [facility] Start: 06-03-2022 Patient education [facility] Start: 06-03-2022 Provision of activit y privileges [facility] Start: 06-03-2022 Referral to service [facility] Start: 06-03-2022 Vital signs measurements [facility] Start: 06-03-2022 Wound care [facility] Start: 06-03-2022 End: 06-03-2022 [facility] Start: 04-19-2022 DTaP/Tdap/Td vaccine (2 - Td) DTaP/Tdap/Td vaccine (2 - Td) [facility] Work Phone: Start: 07-05-2021 Annual Wellness Visi t (AWV) Annual Wellness Visit (AWV) [place], [place] Start: 07-04-2021 Creatinine measurement Creatinine mo nitoring [place] Start: 07-04-2021 Lipid panel Lipid screen [place], [place] Start: 07-04-2021 Potassium monitoring Potassium monit oring [place] Start: 07-03-2021 Influenza vaccination Flu vaccine (# 1) [place] Comment on above: Postponed from 04/23 (Patient Refused) Start: 12-31-2020 End: 12-31-2020 Office Visit 12/31/2020 Office Visit Family Medicine [facility] [address] [facility] [place] [address] [phone] [facility] Start: 08-30-2020 Breast cancer screen Breast cancer s creen [facility] Work Phone: Start: 07-03-2020 Creatinine monitoring Creatinine mon itoring [facility] Work Phone: Start: 07-03-2020 Influenza vaccination Flu vaccine (# 1) [facility] Work Phone: Comment on above: Postponed from 04/23 (Patient Refused) Start: 07-03-2020 Lipid screen Lipid screen [facility] Work Phone: Start: 07-03-2020 Potassium monitoring Potassium monit oring [facility] Work Phone: Start: 07-03-2020 Shingles Vaccine (1 of 2) Shingles Vaccine (1 of 2) [facility] Work Phone: Comment on above: Postponed from 11/05 (Patient Refused) Start: 07-02-2020 Annual Wellness Visi t (AWV) Annual Wellness Visit (AWV) [facility] Work Phone: Start: 01-01-2020 End: 01-01-2020 Patient encounter procedure 01/01/2020 Office Visit Family Medicine Ellie Caballero, HIGH DENSITY PRESS OPERATOR - STOREHOUSE CLERK [address] [facility] [address] [facility] [place] [address] [phone] [facility] Start: 09-01-2019 End: 09-01-2019 Patient encounter procedure 09/01/2019 Office Visit Family Medicine Nicholas Angelo MD [address] [facility] [place] [address] [phone] [facility] Start: 05-28-2017 End: 05-28-2017 Appointment Appointment [facility] Work Phone: Start: 11-05-1997 Shingles Vaccine (1 of 2) Shingles Vaccine (1 of 2) [facility], [place] Start: 11-05-1965 Diabetes mellitus screening Diabetes Screening [facility] Start: 1945 Medicare Advantage Annual Wellness Visit (AWV) Medicare Advantage Annual Wellness Visit (AWV) [facility] Start: 1945 Screening for osteoporosis Bone Density Scan [facility] Patient referral [facility] Work Phone: End: 08-31-2019 Screening digital breast tomosynthesis bi [facility] Digital Screen Bilateral Imaging Routine Once for 1 Occurrences starting 08/31/2019 until 08/31/2019 [facility] Work Phone: Comment on above: Once for 1 Occurrenc es starting 08/31/2019 until 08/31/2019 Screening digital breast tomosynthesis bi [facility] Digital Screen Bilateral Imaging Routine 08/31/2019 9:34 AM EST [facility] Work Phone: Tissue exam [facility] Work Phone: Comment on above: Release Upon Orderin g for 1 Occurrences starting 02/25/2023 Urine culture Urine Culture [facility] Immunizations Immunization Date Immunization Notes Care Provider Fa cility 06-25-2021 Pfizer SARS-CoV-2 Vaccination Sherin Don RN [facility] 05-21-2021 Pfizer SARS-CoV-2 Vaccination Sherin Don RN [facility] 06-17-2017 pneumococcal polysac charide vaccine, 23 valent Ellie Caballero HIGH DENSITY PRESS OPERATOR - STOREHOUSE CLERK Work Phone: [facility] 05-07-2016 pneumococcal conjuga te vaccine, 13 valent Ellie Caballero HIGH DENSITY PRESS OPERATOR - STOREHOUSE CLERK Work Phone: [facility] 04-19-2012 tetanus toxoid, redu tae diphtheria toxoid, and acellular pertussis vaccine, adsorbed Ellie Caballero HIGH DENSITY PRESS OPERATOR - STOREHOUSE CLERK Work Phone: [facility] Payers Date Payer Category Payer Self-pay [id number] 2022 Medicare [facility] [place] Address: [address] [place] [address] [id number] 2021 Medicare [id number] 2015 Medicare [facility] xxxxxxxxxxx 2015-Present [phone] [address] [place] [address] xxxxxxxxxxx [id number] 2013 Medicare [id number] 1945 Unknown [id number] Unknown [id number] Unknown [id number] Unknown [id number] Unknown [id number] Unknown [id number] Social History Date Type Detail Facility Start: 07-03-2019 End: 07-04-2020 Tobacco smoking status NHIS Never smoker [facility] Start: 07-04-2020 Tobacco use and exposure Never used [facility] [facility] [place], [place] Start: 07-04-2020 End: 01-08-2025 Alcohol intake Current non-drinker of alcohol (finding) [facility] Work Phone: Start: 07-03-2019 End: 07-03-2020 History SDOH Alcohol Frequency 1 [facility] Work Phone: Start: 07-03-2019 History SDOH Physica l Activity DPW 5 [facility] Work Phone: Start: 07-03-2019 History SDOH Physica l Activity MPS 15 [facility] Work Phone: Start: 07-03-2019 History SDOH Transport Med 2 [facility] Work Phone: Start: 1945 Sex Assigned At Not on file [facility] [employer] Work Phone: Start: 05-19-2022 End: 05-19-2022 Tobacco smoking status NHIS Unknown if ever smoked [facility] Start: 1945 Sex Assigned At Female [facility] Start: 09-08-2022 End: 01-05-2025 Alcohol intake [facility] Start: 07-31-2022 End: 03-15-2023 Exposure to SARS-CoV-2 (event) Not sure [facility] Start: 02-25-2023 End: 01-05-2025 Tobacco use panel [facility] In the past 12 month s, has lack of transportation kept you from medical appointments or from getting medications? No [facility] In the past 12 month s, was there a time when you were not able to pay the mortgage or rent on time? No [facility] Start: 03-23-2022 Sex Female (finding) [facility] Start: 08-16-2022 End: 08-26-2022 Do you belong to any clubs or organizations such as muslim groups, unions, fraternal or athletic groups, or school groups? Yes [facility] Are you now , , , , never or living with a partner? [facility] How often to you hav e a drink containing alcohol? Never [facility] Do you feel stress - tense, restless, nervous, or anxious, or unable to sleep at night because your mind is troubled all the time - these days [OSQ] To some extent [facility] (I/We) worried wheth er (my/our) food would run out before (I/we) got money to buy more. Never true [facility] Do you feel stress - tense, restless, nervous, or anxious, or unable to sleep at night because your mind is troubled all the time - these days [OSQ] Only a little [facility] Medical Equipment Procedure Code Equipment Code Equipment Origin al Text Equipment Identifier Dates CEMENT,BONE JAROCHO H 1/2 BATCH FDA Start: 06-03-2022 ([id number]) Coated knee femu r prosthesis [id number]( [id number] FDA Start: 06-03-2022 ([id number]) Coated knee tibi a prosthesis ()[id number]( [id number] FDA Start: 06-03-2022 ([id number]) Polyethylene pat jose cruz prosthesis ()[id number]( [id number] FDA Start: 06-03-2022 ([id number]) Tibial insert [id number] FDA Start: 06-03-2022 CEMENT,BONE JAROCHO H 1/2 BATCH FDA Start: 06-03-2022 CEMENT,BONE JAROCHO H 1/2 BATCH FDA Start: 06-03-2022 Goals Date Patient Goal Desired Activity /State Comment on above: Self- Management Luz n: Obesity/Weight Loss Patient Stated Goal: Lose about 30 pounds Barriers to success: sweet tooth Plan for overcoming my barriers: watch her diet and the amount of sweets she eats. Encouraged and recommended by provider. Confidence: 12/30 Self-Management Plan: Will strive to achieve goal by by summer goal set: 07/03/19 Patient given educational materials below via AVS. Provider Goal: Healthy diet and exercise. Patient received counseling about current lifestyle goal. Advised approximately 150 minutes of cardio, i.e treadmill, exercise in a week. Advised "strive for 5" a total 5 servings of fruits and vegetables in a day. Advised a diet lower in carbohydrates and simple sugars. They need to watch consumption of bread, rice, pasta, potatoes, corn, soda, sweetened tea, lemonade, and all other sugar drinks. Patient given after visit summary which includes educational information on Nutrition. Discussed use, benefit, and side effects of prescribed medications and barriers to medication compliance addressed, if applicable. All patient questions answered and patient voiced understanding. Patient was given a copy of this, and was advised to call if any questions. 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 Work Phone: Clinical Notes 08-26-2022 to 06-11-2025 Telephone Encounter - ASHOK Flores CNP - 06/11/2025 11:37 AM EDTTelephone Encounter - ASHOK Flores CNP - 06/11/2025 11:37 AM EDHany Dior - 01/08/2025 8:20 AM EDTAttachments Note Date & Type Note Facility 06-11-2025 Telephone encounter Note Rx sent. Follow up as scheduled. [facility] 06-11-2025 Miscellaneous Notes Rx sent. Follow up as scheduled. documented in this encounter [facility] 01-08-2025 Evaluation + Plan note Associated Problem(s): Anxiety Controlled. Continue Ativan 0.5 mg 3 times daily as needed for anxiety. CS MA in place, OARRS reviewed and consistent with treatment plan. [facility] 01-08-2025 Note Controlled. Continue Ativan 0.5 mg 3 times daily as needed for anxiety. CS MA in place, OARRS reviewed and consistent with treatment plan. [facility] 01-08-2025 Miscellaneous Notes Associated Problem(s): Anxiety Controlled. Continue Ativan 0.5 mg 3 times daily as needed for anxiety. CS MA in place, OARRS reviewed and consistent with treatment plan. Associated Problem(s): Decreased calculated glomerular filtration rate (GFR) Check renal functioning. Maintain good blood pressure control. Associated Problem(s): Age-related osteoporosis without current pathological fracture Continue calcium and vitamin D. Patient currently not taking Boniva. Repeat Dexa Associated Problem(s): Essential (primary) hypertension Controlled. Blood pressure 133/82. Continue losartan 50 mg daily and hydrochlorothiazide 12.5 mg daily Associated Problem(s): Mixed hyperlipidemia Controlled. Continue rosuvastatin 20 mg daily documented in this encounter [facility] 01-08-2025 Miscellaneous Notes Associated Problem(s): Anxiety Controlled. Continue Ativan 0.5 mg 3 times daily as needed for anxiety. CS MA in place, OARRS reviewed and consistent with treatment plan. Associated Problem(s): Decreased calculated glomerular filtration rate (GFR) Check renal functioning. Maintain good blood pressure control. Associated Problem(s): Age-related osteoporosis without current pathological fracture Continue calcium and vitamin D. Patient currently not taking Boniva. Repeat Dexa Associated Problem(s): Essential (primary) hypertension Controlled. Blood pressure 133/82. Continue losartan 50 mg daily and hydrochlorothiazide 12.5 mg daily Associated Problem(s): Mixed hyperlipidemia Controlled. Continue rosuvastatin 20 mg daily Addended by: MELISSA ROY on: 01/10/2025 08:31 AM Modules accepted: Level of Service documented in this encounter [facility] 01-08-2025 Evaluation + Plan note Associated Problem(s): Decreased calculated glomerular filtration rate (GFR) Check renal functioning. Maintain good blood pressure control. [facility] 01-08-2025 Evaluation + Plan note Associated Problem(s): Age-related osteoporosis without current pathological fracture Continue calcium and vitamin D. Patient currently not taking Boniva. Repeat Dexa [facility] 01-08-2025 Evaluation + Plan note Associated Problem(s): Essential (primary) hypertension Controlled. Blood pressure 133/82. Continue losartan 50 mg daily and hydrochlorothiazide 12.5 mg daily [facility] 01-08-2025 Evaluation + Plan note Associated Problem(s): Mixed hyperlipidemia Controlled. Continue rosuvastatin 20 mg daily [facility] 01-08-2025 History of Present illness Narrative Patient was identified by name and Date of . Health Maintenance Due Topic Medicare Advantage Annual Wellness Visit-SCHEDULED 07/18/25 Bone Density Scan-pended SDOH/PHQ/ANAHY--COMPLETED-SENT VIA [facility] Images from the original note were not included. 01/08/2025 Irasema Macdonald (: 1945) is a 79 y.o. female , Established patient, here for evaluation of the following chief complaint(s): Health Maintenance and Medication Check ( Medicare Advantage Annual Wellness Visit-SCHEDULED 07/18/25/ Bone Density Scan-pended/- SDOH/PHQ/ANAHY--COMPLETED-SENT VIA [employer]) ASSESSMENT/PLAN: 1. Essential (primary) hypertension Assessment & Plan: Controlled. Blood pressure 133/82. Continue losartan 50 mg daily and hydrochlorothiazide 12.5 mg daily Orders: - Basic metabolic panel 2. Mixed hyperlipidemia Assessment & Plan: Controlled. Continue rosuvastatin 20 mg daily Orders: - Basic metabolic panel 3. Decreased calculated glomerular filtration rate (GFR) Assessment & Plan: Check renal functioning. Maintain good blood pressure control. Orders: - Basic metabolic panel 4. Age-related osteoporosis without current pathological fracture Assessment & Plan: Continue calcium and vitamin D. Patient currently not taking Boniva. Repeat Dexa Orders: - DEXA bone density peripheral Follow up for with primary care provider as scheduled. SUBJECTIVE/OBJECTIVE: HPI - Irasema Macdonald (: 1945) is a 79 y.o. female , Established patient, here for the evaluation of the following chief complaint(s): Health Maintenance and Medication Check ( Medicare Advantage Annual Wellness Visit-SCHEDULED 07/18/25/ Bone Density Scan-pended/- SDOH/PHQ/ANAHY--COMPLETED-SENT VIA [facility]) Presents for med check. Reports everything is going well at home. Denies any acute concerns or complaints today. Has been working a lot out in the yard at home. Blood pressures have been good at home. Denies any AE of medication. Takes losartan and hydrochlorothiazide Hyperlipidemia- denies any AE of rosuvastatin. Will be due for cholesterol check next visit. Anxiety- reports pretty well controlled. Will occasionally need to take ativan. Osteoporosis- is due for her dexa scan this year. Is taking calcium and vit d. Decreased gfr- will check kidney functioning today. Has been stable. Current Medications[1] Review of Systems Constitutional: Negative. HENT: Negative. Respiratory: Negative. Cardiovascular: Negative. Gastrointestinal: Negative. Genitourinary: Negative. Neurological: Negative. Psychiatric/Behavioral: Negative for agitation, behavioral problems, decreased concentration, dysphoric mood, self-injury, sleep disturbance and suicidal ideas. The patient is nervous/anxious. Vitals: 01/08/25 0833 BP: 133/82 Pulse: 81 Resp: 20 Temp: 36.1 C (96.9 F) TempSrc: Infrared SpO2: 97% Weight: 186 lb (84.4 kg) Height: 5' 6" (1.676 m) Physical Exam Vitals reviewed. Constitutional: General: She is not in acute distress. Appearance: Normal appearance. She is not ill-appearing. HENT: Head: Normocephalic and atraumatic. Mouth/Throat: Mouth: Mucous membranes are moist. Pharynx: Oropharynx is clear. No posterior oropharyngeal erythema. Eyes: Conjunctiva/sclera: Conjunctivae normal. Neck: Vascular: No carotid bruit. Cardiovascular: Rate and Rhythm: Normal rate and regular rhythm. Pulses: Normal pulses. Heart sounds: Normal heart sounds. Pulmonary: Effort: Pulmonary effort is normal. Breath sounds: Normal breath sounds. Musculoskeletal: Right lower leg: No edema. Left lower leg: No edema. Lymphadenopathy: Cervical: No cervical adenopathy. Neurological: Mental Status: She is alert and oriented to person, place, and time. Psychiatric: Mood and Affect: Mood normal. Behavior: Behavior normal. Thought Content: Thought content normal. An electronic signature was used to authenticate this note. ASHOK Jha CNP 01/08/2025 9:12 AM [1] Current Outpatient Medications Medication Sig Dispense Refill ascorbic acid (Vitamin C) 250 MG tablet Take 250 mg by mouth in the morning. aspirin 81 MG chewable tablet Chew 81 mg every morning (before breakfast). CALCIUM CARBONATE-VIT D-MIN PO Take 1 capsule by mouth in the morning. Cranberry-Cholecalciferol 4200-500 MG-UNIT capsule Take by mouth every morning (before breakfast). Estriol 10 % cream Twice a week hydroCHLOROthiazide 12.5 MG tablet TAKE 1 TABLET BY MOUTH EVERY DAY 90 tablet 1 LORazepam (Ativan) 0.5 MG tablet Take 1 tablet (0.5 mg) by mouth 3 times daily as needed for anxiety for up to 7 days. 21 tablet 0 losartan (Cozaar) 50 MG tablet TAKE 1 TABLET BY MOUTH EVERY MORNING. 90 tablet 1 rosuvastatin (Crestor) 20 MG tablet TAKE 1 TABLET BY MOUTH EVERY DAY 90 tablet 1 No current facility-administered medications for this visit. documented in this encounter [facility] 01-08-2025 History of Present illness Narrative Patient was identified by name and Date of . Health Maintenance Due Topic Medicare Advantage Annual Wellness Visit-SCHEDULED 07/18/25 Bone Density Scan-pended SDOH/PHQ/ANAHY--COMPLETED-SENT VIA [facility] Images from the original note were not included. 01/08/2025 Irasema Macdonald (: 1945) is a 79 y.o. female , Established patient, here for evaluation of the following chief complaint(s): Health Maintenance and Medication Check ( Medicare Advantage Annual Wellness Visit-SCHEDULED 07/18/25/ Bone Density Scan-pended/- SDOH/PHQ/ANAHY--COMPLETED-SENT VIA [facility]) ASSESSMENT/PLAN: 1. Essential (primary) hypertension Assessment & Plan: Controlled. Blood pressure 133/82. Continue losartan 50 mg daily and hydrochlorothiazide 12.5 mg daily Orders: - Basic metabolic panel 2. Mixed hyperlipidemia Assessment & Plan: Controlled. Continue rosuvastatin 20 mg daily Orders: - Basic metabolic panel 3. Decreased calculated glomerular filtration rate (GFR) Assessment & Plan: Check renal functioning. Maintain good blood pressure control. Orders: - Basic metabolic panel 4. Age-related osteoporosis without current pathological fracture Assessment & Plan: Continue calcium and vitamin D. Patient currently not taking Boniva. Repeat Dexa Orders: - DEXA bone density peripheral Follow up for with primary care provider as scheduled. SUBJECTIVE/OBJECTIVE: HPI - Irasema Macdonald (: 1945) is a 79 y.o. female , Established patient, here for the evaluation of the following chief complaint(s): Health Maintenance and Medication Check ( Medicare Advantage Annual Wellness Visit-SCHEDULED 07/18/25/ Bone Density Scan-pended/- SDOH/PHQ/ANAHY--COMPLETED-SENT VIA [facility]) Presents for med check. Reports everything is going well at home. Denies any acute concerns or complaints today. Has been working a lot out in the yard at home. Blood pressures have been good at home. Denies any AE of medication. Takes losartan and hydrochlorothiazide Hyperlipidemia- denies any AE of rosuvastatin. Will be due for cholesterol check next visit. Anxiety- reports pretty well controlled. Will occasionally need to take ativan. Osteoporosis- is due for her dexa scan this year. Is taking calcium and vit d. Decreased gfr- will check kidney functioning today. Has been stable. Current Medications[1] Review of Systems Constitutional: Negative. HENT: Negative. Respiratory: Negative. Cardiovascular: Negative. Gastrointestinal: Negative. Genitourinary: Negative. Neurological: Negative. Psychiatric/Behavioral: Negative for agitation, behavioral problems, decreased concentration, dysphoric mood, self-injury, sleep disturbance and suicidal ideas. The patient is nervous/anxious. Vitals: 01/08/25 0833 BP: 133/82 Pulse: 81 Resp: 20 Temp: 36.1 C (96.9 F) TempSrc: Infrared SpO2: 97% Weight: 186 lb (84.4 kg) Height: 5' 6" (1.676 m) Physical Exam Vitals reviewed. Constitutional: General: She is not in acute distress. Appearance: Normal appearance. She is not ill-appearing. HENT: Head: Normocephalic and atraumatic. Mouth/Throat: Mouth: Mucous membranes are moist. Pharynx: Oropharynx is clear. No posterior oropharyngeal erythema. Eyes: Conjunctiva/sclera: Conjunctivae normal. Neck: Vascular: No carotid bruit. Cardiovascular: Rate and Rhythm: Normal rate and regular rhythm. Pulses: Normal pulses. Heart sounds: Normal heart sounds. Pulmonary: Effort: Pulmonary effort is normal. Breath sounds: Normal breath sounds. Musculoskeletal: Right lower leg: No edema. Left lower leg: No edema. Lymphadenopathy: Cervical: No cervical adenopathy. Neurological: Mental Status: She is alert and oriented to person, place, and time. Psychiatric: Mood and Affect: Mood normal. Behavior: Behavior normal. Thought Content: Thought content normal. An electronic signature was used to authenticate this note. ASHOK Jha CNP 01/08/2025 9:12 AM [1] Current Outpatient Medications Medication Sig Dispense Refill ascorbic acid (Vitamin C) 250 MG tablet Take 250 mg by mouth in the morning. aspirin 81 MG chewable tablet Chew 81 mg every morning (before breakfast). CALCIUM CARBONATE-VIT D-MIN PO Take 1 capsule by mouth in the morning. Cranberry-Cholecalciferol 4200-500 MG-UNIT capsule Take by mouth every morning (before breakfast). Estriol 10 % cream Twice a week hydroCHLOROthiazide 12.5 MG tablet TAKE 1 TABLET BY MOUTH EVERY DAY 90 tablet 1 LORazepam (Ativan) 0.5 MG tablet Take 1 tablet (0.5 mg) by mouth 3 times daily as needed for anxiety for up to 7 days. 21 tablet 0 losartan (Cozaar) 50 MG tablet TAKE 1 TABLET BY MOUTH EVERY MORNING. 90 tablet 1 rosuvastatin (Crestor) 20 MG tablet TAKE 1 TABLET BY MOUTH EVERY DAY 90 tablet 1 No current facility-administered medications for this visit. documented in this encounter [facility] 01-08-2025 Instructions Latonia Dior - 01/08/2025 8:20 AM EDT Call to schedule Bone density screening--[facility] Scheduling at [phone] documented in this encounter [facility] 01-08-2025 Instructions Latonia Dior - 01/08/2025 8:20 AM EDT Call to schedule Bone density screening--[facility] Scheduling at [phone] documented in this encounter [facility] 01-08-2025 Note Addended by: MELISSA TORRES on: 01/10/2025 08:31 AM Modules accepted: Level of Service [facility] 12-18-2024 Telephone encounter Note Reviewed chart. Refill appropriate. RX sent. [facility] 12-18-2024 Miscellaneous Notes Reviewed chart. Refill appropriate. RX sent. Prescription Request: : HYDROCHLOROTHIAZIDE 12.5 MG TB ROSUVASTATIN CALCIUM 20 MG TAB : LOSARTAN POTASSIUM 50 MG TAB Last medication check: 07/17/24 Last physical exam: 07/17/24 Next scheduled appointment: 01/08/25 Last date of refill on this medication : HYDROCHLOROTHIAZIDE - 06/27/24 ( qty90 refill 1) ROSUVASTATIN - 06/27/24 ( qty 90 refill 1) : LOSARTAN 06/27/24 (qty 90 refill 1) documented in this encounter [facility] 12-18-2024 Telephone encounter Note Prescription Request: : HYDROCHLOROTHIAZIDE 12.5 MG TB ROSUVASTATIN CALCIUM 20 MG TAB : LOSARTAN POTASSIUM 50 MG TAB Last medication check: 07/17/24 Last physical exam: 07/17/24 Next scheduled appointment: 01/08/25 Last date of refill on this medication : HYDROCHLOROTHIAZIDE - 06/27/24 ( qty90 refill 1) ROSUVASTATIN - 06/27/24 ( qty 90 refill 1) : LOSARTAN 06/27/24 (qty 90 refill 1) [facility] 07-17-2024 Evaluation + Plan note Associated Problem(s): Class 1 obesity due to excess calories with serious comorbidity and body mass index (BMI) of 30.0 to 30.9 in adult Continue weightbearing exercise. Low-fat low-carb diet [facility] 07-17-2024 Miscellaneous Notes Associated Problem(s): Class 1 obesity due to excess calories with serious comorbidity and body mass index (BMI) of 30.0 to 30.9 in adult Continue weightbearing exercise. Low-fat low-carb diet Associated Problem(s): Decreased calculated glomerular filtration rate (GFR) Check renal functioning. Maintain good blood pressure control. Associated Problem(s): Anemia Recheck cbc Associated Problem(s): Age-related osteoporosis without current pathological fracture Continue calcium and vitamin D. Patient currently not taking Boniva. Repeat DEXA next year Associated Problem(s): Anxiety Controlled. Continue Ativan 0.5 mg 3 times daily as needed for anxiety. CS MA in place, OARRS reviewed and consistent with treatment plan. Associated Problem(s): Essential hypertension Initial blood pressure reading elevated 153/77, Home blood pressure readings good (mostly 120-130s/70-80s) documented in this encounter [facility] 07-17-2024 Evaluation + Plan note Associated Problem(s): Decreased calculated glomerular filtration rate (GFR) Check renal functioning. Maintain good blood pressure control. [facility] 07-17-2024 Evaluation + Plan note Associated Problem(s): Anemia Recheck cbc [facility] 07-17-2024 Evaluation + Plan note Associated Problem(s): Age-related osteoporosis without current pathological fracture Continue calcium and vitamin D. Patient currently not taking Boniva. Repeat DEXA next year [facility] 07-17-2024 Evaluation + Plan note Associated Problem(s): Anxiety Controlled. Continue Ativan 0.5 mg 3 times daily as needed for anxiety. CS MA in place, OARRS reviewed and consistent with treatment plan. [facility] 07-17-2024 Note Controlled. Continue Ativan 0.5 mg 3 times daily as needed for anxiety. CS MA in place, OARRS reviewed and consistent with treatment plan. [facility] 07-17-2024 Evaluation + Plan note Associated Problem(s): Essential hypertension Initial blood pressure reading elevated 153/77, Home blood pressure readings good (mostly 120-130s/70-80s) [facility] 07-17-2024 History of Present illness Narrative Patient was identified by name and Date of . Health Maintenance Due Topic Zoster Vaccines-declined DTaP/Tdap/Td Vaccines-declined RSV Immunization for Adults-declined Medicare Advantage Annual Wellness Visit-TODAY Influenza Vaccine-declined COVID-19 Vaccine-declined Depression Screening-completed Images from the original note were not included. [address] [address] Dept: [phone] Dept Chief Complaint: Irasema Macdonald is an 78 y.o. female here for an annual wellness visit. Assessment/Plan : Problem List Items Addressed This Visit Age-related osteoporosis without current pathological fracture Continue calcium and vitamin D. Patient currently not taking Boniva. Repeat DEXA next year Anemia Recheck cbc Relevant Orders CBC auto differential Decreased calculated glomerular filtration rate (GFR) Check renal functioning. Maintain good blood pressure control. Hyperlipidemia Relevant Orders Lipid panel Class 1 obesity due to excess calories with serious comorbidity and body mass index (BMI) of 30.0 to 30.9 in adult Continue weightbearing exercise. Low-fat low-carb diet Essential hypertension Initial blood pressure reading elevated 153/77, Home blood pressure readings good (mostly 120-130s/70-80s) Relevant Orders Comprehensive metabolic panel Anxiety Controlled. Continue Ativan 0.5 mg 3 times daily as needed for anxiety. CS MA in place, OARRS reviewed and consistent with treatment plan. Relevant Medications LORazepam (Ativan) 0.5 MG tablet Other Visit Diagnoses Routine general medical examination at health care facility - Primary Encounter for screening mammogram for malignant neoplasm of breast Relevant Orders Bilateral screening mammogram with tomosynthesis I have reviewed and reconciled the medication list with the patient today. Current Outpatient Medications Medication Sig Dispense Refill ascorbic acid (Vitamin C) 250 MG tablet Take 250 mg by mouth in the morning. aspirin 81 MG chewable tablet Chew 81 mg every morning (before breakfast). CALCIUM CARBONATE-VIT D-MIN PO Take 1 capsule by mouth in the morning. Cranberry-Cholecalciferol 4200-500 MG-UNIT capsule Take by mouth every morning (before breakfast). Estriol 10 % cream Twice a week hydroCHLOROthiazide 12.5 MG tablet TAKE 1 TABLET BY MOUTH EVERY DAY 90 tablet 1 losartan (Cozaar) 50 MG tablet TAKE 1 TABLET BY MOUTH EVERY MORNING. 90 tablet 1 rosuvastatin (Crestor) 20 MG tablet TAKE 1 TABLET BY MOUTH EVERY DAY 90 tablet 1 LORazepam (Ativan) 0.5 MG tablet Take 1 tablet (0.5 mg) by mouth 3 times daily as needed for anxiety for up to 7 days. 21 tablet 0 No current facility-administered medications for this visit. Also reviewed during this visit: Anxiety- reports doing well, will occasionally take ativan 0.5 mg. Everything is going well at home. No concerns. Hypertension- taking losartan 50 mg and hydrochlorothiazide 12.5 mg daily. Monitors blood pressure at home and readings are good. Gets anxious coming in and bp usually elevated in office. Denies any AE of medication. Decreased GFR- 12/2023 last GFR- , 01/2024 urine microalbumin-creat- normal Hyperlipidemia- due for lipid check today. Takes rosuvastatin 20 mg daily. Denies any AE of medication. Osteoporosis- last DEXA 2022. Did not tolerate boniva. Is taking calcium and vit d, weight bearing exercise daily. The following health maintenance schedule was reviewed with the patient and provided in printed form in the after visit summary: Health Maintenance Topic Date Due Medicare Advantage Annual Wellness Visit 08/23/2023 Influenza Vaccine (1) 02/19/2025 (Originally 04/23/2024) Bone Density Scan 09/08/2024 Depression Screening 07/17/2025 Lipid Panel 07/12/2028 Pneumococcal Vaccine: 65+ Years Completed RSV Immunization under 20 Months Aged Out HIB Vaccines Aged Out IPV Vaccines Aged Out Hepatitis A Vaccines Aged Out Meningococcal Vaccine Aged Out Rotavirus Vaccines Aged Out HPV Vaccines Aged Out RSV Immunization for Adults Discontinued DTaP/Tdap/Td Vaccines Discontinued Hepatitis B Vaccines Discontinued Zoster Vaccines Discontinued Hepatitis C Screening Discontinued Colorectal Cancer Screening Discontinued COVID-19 Vaccine Discontinued List of current healthcare providers: Patient Care Team: Nicholas Angelo MD as PCP - General Orders Placed This Encounter Procedures Bilateral screening mammogram with tomosynthesis Standing Status: Future Standing Expiration Date: 09/16/2025 Lipid panel Standing Status: Future Number of Occurrences: 1 Standing Expiration Date: 07/17/2025 CBC auto differential Standing Status: Future Number of Occurrences: 1 Standing Expiration Date: 07/17/2025 Comprehensive metabolic panel Standing Status: Future Number of Occurrences: 1 Standing Expiration Date: 07/17/2025 Review of Systems Constitutional: Negative. HENT: Negative. Eyes: Negative. Respiratory: Negative. Cardiovascular: Negative. Gastrointestinal: Negative. Genitourinary: Negative. Musculoskeletal: Negative. Neurological: Negative. Psychiatric/Behavioral: Negative for behavioral problems, decreased concentration, dysphoric mood, self-injury, sleep disturbance and suicidal ideas. The patient is nervous/anxious. Physical Exam Constitutional: General: She is not in acute distress. Appearance: Normal appearance. She is normal weight. She is not ill-appearing. HENT: Head: Normocephalic and atraumatic. Right Ear: Tympanic membrane, ear canal and external ear normal. There is no impacted cerumen. Left Ear: Tympanic membrane, ear canal and external ear normal. There is no impacted cerumen. Ears: Comments: Hearing aids bilaterally Nose: Nose normal. No congestion or rhinorrhea. Mouth/Throat: Mouth: Mucous membranes are moist. Pharynx: Oropharynx is clear. Uvula midline. No oropharyngeal exudate or posterior oropharyngeal erythema. Eyes: Conjunctiva/sclera: Conjunctivae normal. Pupils: Pupils are equal, round, and reactive to light. Neck: Vascular: No carotid bruit. Cardiovascular: Rate and Rhythm: Normal rate and regular rhythm. Pulses: Normal pulses. Heart sounds: Normal heart sounds. Pulmonary: Effort: Pulmonary effort is normal. No respiratory distress. Breath sounds: Normal breath sounds. Abdominal: General: Abdomen is flat. Bowel sounds are normal. Palpations: Abdomen is soft. Tenderness: There is no abdominal tenderness. There is no right CVA tenderness or left CVA tenderness. Musculoskeletal: General: Normal range of motion. Cervical back: Normal range of motion and neck supple. No rigidity or tenderness. Lymphadenopathy: Cervical: No cervical adenopathy. Skin: General: Skin is warm and dry. Findings: No erythema or rash. Neurological: General: No focal deficit present. Mental Status: She is alert and oriented to person, place, and time. Psychiatric: Mood and Affect: Mood normal. Behavior: Behavior normal. Objective : BP 138/74 Pulse 79 Temp 37.1 C (98.7 F) (Infrared) Resp 18 Ht 5' 6" (1.676 m) Wt 186 lb 12.8 oz (84.7 kg) SpO2 96% BMI 30.15 kg/m No results found. Subjective : Health Risk Assessment: General: General In general, how would you say your health is?: Very good In the past 7 days, have you experienced any of the following: New or Increased Pain, New or Increased Fatigue, Loneliness, Social Isolation, Stress or Anger?: No Do you get the social and emotional suppport you need?: Yes Health Habits/Nutrition: Health Habits / Nutrition On average, how many days per week do you engage in moderate to strenous exercise (like a brisk walk)?: 5 days On average, how man minutes do you engage in exercise at this level?: 40 min Have you lost any weight without trying in the past 3 months? : No Have you seen the dentist within the past year?: Yes Hearing/ Vision: Hearing / Vision Do you or your family notice any trouble with your hearing that hasn't been managed with hearing aids?: No Do you have difficulty driving, watching TV, or doing any of your daily activities because of your eyesight?: No Have you had an eye exam within the past year?: Yes No results found. Safety: Safety Do you have a working smoke detector?: Yes Do you have any tripping hazards - loose or unsecured carpets or rugs?: No Do you have any tripping hazards - clutter in doorways, halls, or stairs?: No Do all your stairways have a railing or banister? : Yes Do you fasten your seatbelt when you are in a car?: Yes ADL: ADL In the past 7 days, did you need help from others to perform any of the following everyday activities: Eating, dressing, grooming,bathing, toileting, or walking / balance? : No In the past 7 days, did you need help from others to take care of any of the following: laundry, housekeeping, banking / finances,shopping, telephone use, food preparation, transportation, or taking medications? : No Living Will: Living Will Do you have a living will?: Yes Cognitive: Cognitive Screening: Mini-Cog Clock Drawing Test (CDT): 2 Words Recalled: 3 Total Score: 5 Total Score Interpretation: Normal Mini-Cog Fall Risk: Fall Risk One or more falls in the last year:: No Advised to use a cane or walker to get around safely:: No Feels unsteady when walking:: No Steadies self on furniture while walking at home:: No Worried about falling:: No Depression Screening: Over the past 2 weeks, how often have you been bothered by any of the following problems? Little interest or pleasure in doing things: Not at all Feeling down, depressed, or hopeless: Not at all Patient Health Questionnaire-2 Score: 0 Interventions: Tobacco Use: Social History Tobacco Use Smoking Status Never Smokeless Tobacco Never Alcohol Use: Audit Alcohol Screening Q1: How often do you have a drink containing alcohol?: (Proxy-Rptd) Never Q2: How many drinks containing alcohol do you have on a typical day when you are drinking?: (Proxy-Rptd) Patient does not drink Q3: How often do you have six or more drinks on one occasion?: (Proxy-Rptd) Never Audit-C Score: (Proxy-Rptd) 0 Skip to questions 9-10?: (Proxy-Rptd) 1 Social Drivers of Health: SDOH risk assessment performed and documented today by members of the health care team. A total time of 15+ minutes was spent obtaining information from the patient and discussing options to address the patient's social risk factors and unmet needs. Social Drivers of Health with Concerns Concerns Present Stress: Stress Concern Present (07/17/2024) documented in this encounter [facility] 07-17-2024 Instructions ASHOK Nelson CNP - 07/17/2024 7:40 AM EST Personalized Preventative Plan for Irasema Macdonald - 07/17/2024 Medicare offers a range of preventative health benefits. Some of the tests and screenings are paid in full while others may be subject to a deductible, co-insurance, and / or copay. Some of these benefits include a comprehensive review of your medical history including lifestyle, illnesses that may run in your family, and various assessments and screenings as appropriate. After reviewing your medical record and screening and assessments performed today, your provider may have ordered immunizations, labs, imaging, and / or referrals for you. A list of these orders (if applicable) as well as your Preventative Care list are included within your After Visit Summary for your review. Other Preventative Recommendations: A preventive eye exam by an sports marketing specialist is recommended every 1-2 years to screen for glaucoma, cataracts, macular degeneration, and other eye disorders. A preventive dental visit is recommended every 6 months. Try to get at least 150 minutes of exercise per week or 10,000 steps per day on a pedometer. You need 1200-1500mg of calcium and 7015-8151 international units of vitamin D per day. It is possible to meet your calcium requirement with diet alone, but a vitamin D supplement is usually necessary to meet this goal. When exposed to the sun, use a sunscreen that protects against both UVA and UVB radiation with an SPF of 30 or greater. Reapply every 2-3 hours or after sweating, drying off with a towel, or swimming. Always wear a seat belt when traveling in a car. Always wear a helmet when riding a bicycle or a motorcycle documented in this encounter [facility] 06-27-2024 Telephone encounter Note Reviewed chart. Refill appropriate. RX sent. [facility] 06-27-2024 Miscellaneous Notes Reviewed chart. Refill appropriate. RX sent. Prescription Request: Last medication check: 02/14/24 Last physical exam: 07/12/23 Next scheduled appointment: 07/17/24 Last date of refill on this medication 01/03/24 90 day 1refill documented in this encounter [facility] 06-27-2024 Telephone encounter Note Prescription Request: Last medication check: 02/14/24 Last physical exam: 07/12/23 Next scheduled appointment: 07/17/24 Last date of refill on this medication 01/03/24 90 day 1refill [facility] 02-14-2024 Evaluation + Plan note Associated Problem(s): Decreased calculated glomerular filtration rate (GFR) Has had decreased in GFR over the past year. Last being 42. Continue blood pressure control. Will check urine microalbumin creatinine. Consider referral to nephrology [facility] 02-14-2024 Miscellaneous Notes Associated Problem(s): Decreased calculated glomerular filtration rate (GFR) Has had decreased in GFR over the past year. Last being 42. Continue blood pressure control. Will check urine microalbumin creatinine. Consider referral to nephrology Associated Problem(s): Essential hypertension Initial blood pressure elevated, repeat blood pressure okay 136/74. Continue losartan 50 mg daily and hydrochlorothiazide 12.5 mg daily. Associated Problem(s): Anxiety Controlled. Continue Ativan 0.5 mg 3 times daily as needed for anxiety. CS MA in place, OARRS reviewed and consistent with treatment plan. documented in this encounter [facility] 02-14-2024 Miscellaneous Notes Associated Problem(s): Decreased calculated glomerular filtration rate (GFR) Has had decreased in GFR over the past year. Last being 42. Continue blood pressure control. Will check urine microalbumin creatinine. Consider referral to nephrology Associated Problem(s): Essential hypertension Initial blood pressure elevated, repeat blood pressure okay 136/74. Continue losartan 50 mg daily and hydrochlorothiazide 12.5 mg daily. Associated Problem(s): Anxiety Controlled. Continue Ativan 0.5 mg 3 times daily as needed for anxiety. CS MA in place, OARRS reviewed and consistent with treatment plan. Addended by: MELISSA ROY on: 02/16/2024 01:54 PM Modules accepted: Level of Service documented in this encounter [facility] 02-14-2024 Evaluation + Plan note Associated Problem(s): Essential hypertension Initial blood pressure elevated, repeat blood pressure okay 136/74. Continue losartan 50 mg daily and hydrochlorothiazide 12.5 mg daily. [facility] 02-14-2024 Evaluation + Plan note Associated Problem(s): Anxiety Controlled. Continue Ativan 0.5 mg 3 times daily as needed for anxiety. MANOJ TREADWELL in place, OARRS reviewed and consistent with treatment plan. [facility] 02-14-2024 History of Present illness Narrative Patient was identified by name and Date of . Health Maintenance Addressed with Patient at Visit: AWV-SCHEDULED ON 07/17/24 Images from the original note were not included. 02/14/2024 Irasema Macdonald (: 1945) is a 78 y.o. female , Established patient, here for evaluation of the following chief complaint(s): Follow-up ASSESSMENT/PLAN: 1. Anxiety Assessment & Plan: Controlled. Continue Ativan 0.5 mg 3 times daily as needed for anxiety. CS MA in place, OARRS reviewed and consistent with treatment plan. 2. Essential hypertension Assessment & Plan: Initial blood pressure elevated, repeat blood pressure okay 136/74. Continue losartan 50 mg daily and hydrochlorothiazide 12.5 mg daily. Orders: - Microalbumin / creatinine, urine ratio 3. Decreased calculated glomerular filtration rate (GFR) Assessment & Plan: Has had decreased in GFR over the past year. Last being 42. Continue blood pressure control. Will check urine microalbumin creatinine. Consider referral to nephrology Follow up for as directed pending test results. SUBJECTIVE/OBJECTIVE: HPI - Irasema Macdonald (: 1945) is a 78 y.o. female , Established patient, here for the evaluation of the following chief complaint(s): Follow-up Anxiety-reports she is doing much better. Situation at home has changed. States she ended up not continuing the lexapro as she does not think that she needs it. Going to group at [facility] and things are going better. set some boundaries with his younger sister and that has helped. Hypertension- blood pressure high here in the office, good readings at home. ?white coat hypertension. Takes losartan 50 mg and hydrochlorothiazide 12.5 mg daily. Has had slight decrease in kidney functioning over the past year, planning on checking urine microalbumin/creatinine today. Hx of UTIs. Kidney stones. Prior to Admission medications Medication Sig Start Date End Date Taking? Authorizing Provider ascorbic acid (Vitamin C) 250 MG tablet Take 250 mg by mouth in the morning. Yes Historical Provider, aspirin 81 MG chewable tablet Chew 81 mg every morning (before breakfast). Yes Historical Provider, CALCIUM CARBONATE-VIT D-MIN PO Take 1 capsule by mouth in the morning. Yes Historical Provider, Cranberry-Cholecalciferol 4200-500 MG-UNIT capsule Take by mouth every morning (before breakfast). Yes Historical Provider, Estriol 10 % cream Twice a week Yes Historical Provider, hydroCHLOROthiazide 12.5 MG tablet TAKE 1 TABLET BY MOUTH EVERY DAY 01/03/24 Yes ASHOK Nelson CNP LORazepam (Ativan) 0.5 MG tablet Take 1 tablet (0.5 mg) by mouth 3 times daily as needed for anxiety for up to 7 days. 07/12/23 02/14/24 Yes ASHOK Nelson CNP losartan (Cozaar) 50 MG tablet TAKE 1 TABLET BY MOUTH EVERY MORNING. 01/03/24 Yes ASHOK Nelson CNP rosuvastatin (Crestor) 20 MG tablet TAKE 1 TABLET BY MOUTH EVERY DAY 01/03/24 Yes ASHOK Nelson CNP Sutab 1503-143-657 MG tablet 10/27/23 Yes Historical Provider, escitalopram (Lexapro) 5 MG tablet Take 1 tablet (5 mg) by mouth daily. 01/12/24 02/11/24 ASHOK Nelson CNP Review of Systems Constitutional: Negative. Respiratory: Negative. Cardiovascular: Negative. Genitourinary: Negative for difficulty urinating. Neurological: Negative. Vitals: 02/14/24 0818 02/14/24 0842 BP: (!) 160/87 136/74 Pulse: 94 Resp: 16 Temp: 36.5 C (97.7 F) TempSrc: Infrared SpO2: 95% Weight: 187 lb (84.8 kg) Physical Exam Constitutional: General: She is not in acute distress. Appearance: Normal appearance. She is obese. She is not ill-appearing. HENT: Head: Normocephalic and atraumatic. Cardiovascular: Rate and Rhythm: Normal rate and regular rhythm. Pulses: Normal pulses. Heart sounds: Normal heart sounds. Pulmonary: Effort: Pulmonary effort is normal. Breath sounds: Normal breath sounds. Neurological: Mental Status: She is alert and oriented to person, place, and time. An electronic signature was used to authenticate this note. ASHOK Jha CNP 02/14/2024 11:08 AM documented in this encounter [facility] 02-14-2024 History of Present illness Narrative Patient was identified by name and Date of . Health Maintenance Addressed with Patient at Visit: AWV-SCHEDULED ON 07/17/24 Images from the original note were not included. 02/14/2024 Irasema Macdonald (: 1945) is a 78 y.o. female , Established patient, here for evaluation of the following chief complaint(s): Follow-up ASSESSMENT/PLAN: 1. Anxiety Assessment & Plan: Controlled. Continue Ativan 0.5 mg 3 times daily as needed for anxiety. CS MA in place, OARRS reviewed and consistent with treatment plan. 2. Essential hypertension Assessment & Plan: Initial blood pressure elevated, repeat blood pressure okay 136/74. Continue losartan 50 mg daily and hydrochlorothiazide 12.5 mg daily. Orders: - Microalbumin / creatinine, urine ratio 3. Decreased calculated glomerular filtration rate (GFR) Assessment & Plan: Has had decreased in GFR over the past year. Last being 42. Continue blood pressure control. Will check urine microalbumin creatinine. Consider referral to nephrology Follow up for as directed pending test results. SUBJECTIVE/OBJECTIVE: NERY - Irasema Macdonald (: 1945) is a 78 y.o. female , Established patient, here for the evaluation of the following chief complaint(s): Follow-up Anxiety-reports she is doing much better. Situation at home has changed. States she ended up not continuing the lexapro as she does not think that she needs it. Going to group at [facility] and things are going better. set some boundaries with his younger sister and that has helped. Hypertension- blood pressure high here in the office, good readings at home. ?white coat hypertension. Takes losartan 50 mg and hydrochlorothiazide 12.5 mg daily. Has had slight decrease in kidney functioning over the past year, planning on checking urine microalbumin/creatinine today. Hx of UTIs. Kidney stones. Prior to Admission medications Medication Sig Start Date End Date Taking? Authorizing Provider ascorbic acid (Vitamin C) 250 MG tablet Take 250 mg by mouth in the morning. Yes Historical Provider, aspirin 81 MG chewable tablet Chew 81 mg every morning (before breakfast). Yes Historical Provider, CALCIUM CARBONATE-VIT D-MIN PO Take 1 capsule by mouth in the morning. Yes Historical Provider, Cranberry-Cholecalciferol 4200-500 MG-UNIT capsule Take by mouth every morning (before breakfast). Yes Historical Provider, Estriol 10 % cream Twice a week Yes Historical Provider, hydroCHLOROthiazide 12.5 MG tablet TAKE 1 TABLET BY MOUTH EVERY DAY 01/03/24 Yes Melissa Roy APRN - [place] LORazepam (Ativan) 0.5 MG tablet Take 1 tablet (0.5 mg) by mouth 3 times daily as needed for anxiety for up to 7 days. 07/12/23 02/14/24 Yes Melissa Roy APRN - [place] losartan (Cozaar) 50 MG tablet TAKE 1 TABLET BY MOUTH EVERY MORNING. 01/03/24 Yes Melissacaroline Roy APRN - [place] rosuvastatin (Crestor) 20 MG tablet TAKE 1 TABLET BY MOUTH EVERY DAY 01/03/24 Yes MelissaASHOK Tijerina CNP [place] 5003-595-378 MG tablet 10/27/23 Yes Historical Provider, escitalopram (Lexapro) 5 MG tablet Take 1 tablet (5 mg) by mouth daily. 01/12/24 02/11/24 ASHOK Nelson CNP Review of Systems Constitutional: Negative. Respiratory: Negative. Cardiovascular: Negative. Genitourinary: Negative for difficulty urinating. Neurological: Negative. Vitals: 02/14/24 0818 02/14/24 0842 BP: (!) 160/87 136/74 Pulse: 94 Resp: 16 Temp: 36.5 C (97.7 F) TempSrc: Infrared SpO2: 95% Weight: 187 lb (84.8 kg) Physical Exam Constitutional: General: She is not in acute distress. Appearance: Normal appearance. She is obese. She is not ill-appearing. HENT: Head: Normocephalic and atraumatic. Cardiovascular: Rate and Rhythm: Normal rate and regular rhythm. Pulses: Normal pulses. Heart sounds: Normal heart sounds. Pulmonary: Effort: Pulmonary effort is normal. Breath sounds: Normal breath sounds. Neurological: Mental Status: She is alert and oriented to person, place, and time. An electronic signature was used to authenticate this note. ASHOK Jha CNP 02/14/2024 11:08 AM documented in this encounter [facility] 02-14-2024 Note Addended by: MELISSA TORRES on: 02/16/2024 01:54 PM Modules accepted: Level of Service [facility] 01-12-2024 Evaluation + Plan note Associated Problem(s): Anxiety Poorly controlled. Start Lexapro 5 mg daily, continue Ativan 0.5 mg tablet 3 times daily as needed. CS MA is in place OARRS reviewed and consistent with treatment plan. Reports that she has several tablets left at home still of the Ativan and does not need a refill today. We will have her follow-up in about 1 month for anxiety. Recommend counseling services. [facility] 01-12-2024 Miscellaneous Notes Associated Problem(s): Anxiety Poorly controlled. Start Lexapro 5 mg daily, continue Ativan 0.5 mg tablet 3 times daily as needed. CS MA is in place OARRS reviewed and consistent with treatment plan. Reports that she has several tablets left at home still of the Ativan and does not need a refill today. We will have her follow-up in about 1 month for anxiety. Recommend counseling services. Associated Problem(s): Essential hypertension Controlled. Continue losartan 50 mg daily and hydrochlorothiazide 12.5 mg daily Associated Problem(s): Hyperlipidemia Controlled. Continue rosuvastatin 20 mg daily documented in this encounter [facility] 01-12-2024 Evaluation + Plan note Associated Problem(s): Essential hypertension Controlled. Continue losartan 50 mg daily and hydrochlorothiazide 12.5 mg daily [facility] 01-12-2024 Evaluation + Plan note Associated Problem(s): Hyperlipidemia Controlled. Continue rosuvastatin 20 mg daily [facility] 01-12-2024 History of Present illness Narrative Images from the original note were not included. 01/12/2024 Irasema Macdonald (: 1945) is a 78 y.o. female , Established patient, here for evaluation of the following chief complaint(s): Medication Check ASSESSMENT/PLAN: 1. Essential hypertension Assessment & Plan: Controlled. Continue losartan 50 mg daily and hydrochlorothiazide 12.5 mg daily Orders: - Basic metabolic panel 2. Mixed hyperlipidemia Assessment & Plan: Controlled. Continue rosuvastatin 20 mg daily 3. Anxiety Assessment & Plan: Poorly controlled. Start Lexapro 5 mg daily, continue Ativan 0.5 mg tablet 3 times daily as needed. MA is in place OARRS reviewed and consistent with treatment plan. Reports that she has several tablets left at home still of the Ativan and does not need a refill today. We will have her follow-up in about 1 month for anxiety. Recommend counseling services. Orders: - escitalopram (Lexapro) 5 MG tablet; Take 1 tablet (5 mg) by mouth daily., Starting Wed01/12/2024, Until Wed02/11/2024, Normal Follow up in about 1 month (around 02/12/2024). SUBJECTIVE/OBJECTIVE: HPI - Irasema Macdonald (: 1945) is a 78 y.o. female , Established patient, here for the evaluation of the following chief complaint(s): Medication Check No illnesses or injuries. HTN- bp at home 124/75 brings home blood pressure readings which are all good- will scan into media tab. Colonoscopy yesterday good report per patient, does not need to go back. Anxiety-reports that she sister in law (husbands sister)is back in the area and is stressful-she is very needy and consumes a lot of her 's time. States that her seems to be stressed about also. It is his younger sister and his younger sister lost her about 9 months ago. Prior to Admission medications Medication Sig Start Date End Date Taking? Authorizing Provider ascorbic acid (Vitamin C) 250 MG tablet Take 250 mg by mouth in the morning. Historical Provider, aspirin 81 MG chewable tablet Chew 81 mg every morning (before breakfast). Historical Provider, CALCIUM CARBONATE-VIT D-MIN PO Take 1 capsule by mouth in the morning. Historical Provider, Cranberry-Cholecalciferol 4200-500 MG-UNIT capsule Take by mouth every morning (before breakfast). Historical Provider, Estriol 10 % cream Twice a week Historical Provider, hydroCHLOROthiazide 12.5 MG tablet TAKE 1 TABLET BY MOUTH EVERY DAY 01/03/24 ASHOK Nelson CNP LORazepam (Ativan) 0.5 MG tablet Take 1 tablet (0.5 mg) by mouth 3 times daily as needed for anxiety for up to 7 days. 07/12/23 07/19/23 ASHOK Nelson CNP losartan (Cozaar) 50 MG tablet TAKE 1 TABLET BY MOUTH EVERY MORNING. 01/03/24 MelissaASHOK Tijerina CNP rosuvastatin (Crestor) 20 MG tablet TAKE 1 TABLET BY MOUTH EVERY DAY 01/03/24 ASHOK Nelson CNP Review of Systems Constitutional: Negative. HENT: Negative. Respiratory: Negative. Cardiovascular: Negative. Gastrointestinal: Negative. Genitourinary: Negative. Musculoskeletal: Negative. Skin: Negative. Neurological: Negative. Psychiatric/Behavioral: Negative for agitation, behavioral problems, decreased concentration, self-injury, sleep disturbance and suicidal ideas. The patient is nervous/anxious. Vitals: 01/12/24 0744 01/12/24 0812 BP: (!) 145/67 138/70 Pulse: 81 Resp: 14 Temp: 36.5 C (97.7 F) TempSrc: Infrared SpO2: 98% Weight: 188 lb 3.2 oz (85.4 kg) Physical Exam Constitutional: General: She is not in acute distress. Appearance: Normal appearance. She is not ill-appearing. HENT: Head: Normocephalic and atraumatic. Mouth/Throat: Mouth: Mucous membranes are moist. Pharynx: Oropharynx is clear. No posterior oropharyngeal erythema. Eyes: Conjunctiva/sclera: Conjunctivae normal. Cardiovascular: Rate and Rhythm: Normal rate and regular rhythm. Pulses: Normal pulses. Heart sounds: Normal heart sounds. Pulmonary: Effort: Pulmonary effort is normal. Breath sounds: Normal breath sounds. Neurological: Mental Status: She is alert and oriented to person, place, and time. Psychiatric: Attention and Perception: Attention normal. Mood and Affect: Mood and affect normal. Speech: Speech normal. Behavior: Behavior normal. Behavior is cooperative. Thought Content: Thought content normal. Cognition and Memory: Cognition and memory normal. Judgment: Judgment normal. Comments: Tearful when talking about [id number] and current home situation. An electronic signature was used to authenticate this note. ASHOK Nelson CNP 01/12/2024 5:05 PM documented in this encounter [facility] 01-03-2024 Telephone encounter Note Reviewed chart. Refill appropriate. RX sent. [facility] 01-03-2024 Miscellaneous Notes Reviewed chart. Refill appropriate. RX sent. Prescription Request: Last medication check: 01/05/23 Last physical exam: 07/12/2023 Next scheduled appointment: 01/12/24 Last date of refill on this medication: 07/12/2023 documented in this encounter [facility] 01-03-2024 Telephone encounter Note Prescription Request: Last medication check: 01/05/23 Last physical exam: 07/12/2023 Next scheduled appointment: 01/12/24 Last date of refill on this medication: 07/12/2023 [facility] 07-12-2023 Evaluation + Plan note Associated Problem(s): Hyperlipidemia Recheck lipids today. Continue rosuvastatin 20 mg daily [facility] 07-12-2023 Miscellaneous Notes Associated Problem(s): Hyperlipidemia Recheck lipids today. Continue rosuvastatin 20 mg daily Associated Problem(s): Anxiety Mild. Continue lorazepam. OARRS reviewed and consistent with treatment plan MA in place. Associated Problem(s): Anemia Has been stable. Recheck CBC today Associated Problem(s): Overweight (BMI 25.0-29.9) Continue weightbearing exercise. Low-fat low-carb diet Associated Problem(s): Age-related osteoporosis without current pathological fracture Continue calcium and vitamin D. Patient currently not taking Boniva. Repeat DEXA next year Associated Problem(s): Essential hypertension Controlled. Home readings are well within goal. 120s over 70s. (media tab) Continue losartan 50 mg daily and hydrochlorothiazide 12.5 mg daily Addended by: MELISSA ROY on: 07/12/2023 09:28 AM Modules accepted: Orders documented in this encounter [facility] 07-12-2023 Evaluation + Plan note Associated Problem(s): Anxiety Mild. Continue lorazepam. OARRS reviewed and consistent with treatment plan MA in place. [facility] 07-12-2023 Evaluation + Plan note Associated Problem(s): Anemia Has been stable. Recheck CBC today [facility] 07-12-2023 Evaluation + Plan note Associated Problem(s): Overweight (BMI 25.0-29.9) Continue weightbearing exercise. Low-fat low-carb diet [facility] 07-12-2023 Evaluation + Plan note Associated Problem(s): Age-related osteoporosis without current pathological fracture Continue calcium and vitamin D. Patient currently not taking Boniva. Repeat DEXA next year [facility] 07-12-2023 Evaluation + Plan note Associated Problem(s): Essential hypertension Controlled. Home readings are well within goal. 120s over 70s. (media tab) Continue losartan 50 mg daily and hydrochlorothiazide 12.5 mg daily [facility] 07-12-2023 History of Present illness Narrative Patient was identified by name and Date of . Health Main: AWV-Today DM screen-labs today Zoster-declined RSV-declined n/a Tdap-declined Flu-declined Covid-declined Images from the original note were not included. [facility] [address] [facility] [id number] Dept: [phone] Dept Chief Complaint: Irasema Macdonald is an 77 y.o. female here for an annual wellness visit. Assessment/Plan : Problem List Items Addressed This Visit Circulatory Essential hypertension Controlled. Home readings are well within goal. 120s over 70s. (media tab) Continue losartan 50 mg daily and hydrochlorothiazide 12.5 mg daily Relevant Medications losartan (Cozaar) 50 MG tablet Other Relevant Orders Comprehensive metabolic panel Endocrine/Metabolic Overweight (BMI 25.0-29.9) Continue weightbearing exercise. Low-fat low-carb diet Hematologic Anemia Has been stable. Recheck CBC today Relevant Orders CBC Other Hyperlipidemia Recheck lipids today. Continue rosuvastatin 20 mg daily Relevant Medications rosuvastatin (Crestor) 20 MG tablet Other Relevant Orders Lipid panel Anxiety Mild. Continue lorazepam. OARRS reviewed and consistent with treatment plan CS MA in place. Relevant Medications LORazepam (Ativan) 0.5 MG tablet Other Visit Diagnoses Routine general medical examination at health care facility - Primary Essential (primary) hypertension Relevant Medications hydroCHLOROthiazide (HYDRODiuril) 12.5 MG tablet I have reviewed and reconciled the medication list with the patient today. Current Outpatient Medications Medication Sig Dispense Refill ascorbic acid (Vitamin C) 250 MG tablet Take 250 mg by mouth in the morning. aspirin 81 MG chewable tablet Chew 81 mg every morning (before breakfast). CALCIUM CARBONATE-VIT D-MIN PO Take 1 capsule by mouth in the morning. Cranberry-Cholecalciferol 4200-500 MG-UNIT capsule Take by mouth every morning (before breakfast). Estriol 10 % cream Twice a week hydroCHLOROthiazide (HYDRODiuril) 12.5 MG tablet Take 1 tablet (12.5 mg) by mouth daily. 90 tablet 1 LORazepam (Ativan) 0.5 MG tablet Take 1 tablet (0.5 mg) by mouth 3 times daily as needed for anxiety for up to 7 days. 21 tablet 0 losartan (Cozaar) 50 MG tablet Take 1 tablet (50 mg) by mouth every morning. 90 tablet 1 rosuvastatin (Crestor) 20 MG tablet Take 1 tablet (20 mg) by mouth daily. 90 tablet 1 No current facility-administered medications for this visit. Also reviewed during this visit: Htn-mild elevation in office today 148/72. Patient's home readings are always much better and she brings those today-home readings, 120s/ 70's-136/85. We will scan these into the media tab. Denies any adverse effects of the medication is currently taking losartan 50 mg and hydrochlorothiazide 12.5 mg Anxiety-reports intermittent anxiety. Has been stable on lorazepam 0.5 mg 3 times daily as needed. Last prescription was filled in december. Uses very infrequently. Osteoporosis-patient has been doing weightbearing exercise, calcium and vitamin D. Reports that she did take Boniva for a couple weeks however developed some hip pain which she attributes to the medication so she stopped taking the Boniva. At this time she is just going to continue taking the calcium and vitamin D. She will be due for repeat DEXA scan next year Hyperlipidemia-rosuvastatin 20 mg daily. Is due for lipid panel today The following health maintenance schedule was reviewed with the patient and provided in printed form in the after visit summary: Health Maintenance Topic Date Due Medicare Advantage Annual Wellness Visit (AWV) Never done Diabetes Screening Never done Influenza Vaccine (1) 02/20/2024 (Originally 04/23/2023) RSV Immunization aged 60 or older (1 - 1-dose 60+ series) 07/09/2024 (Originally 2007) DTaP/Tdap/Td Vaccines (2 - Td or Tdap) 07/09/2024 (Originally 04/19/2022) Zoster Vaccines (1 of 2) 07/09/2024 (Originally 11/05/1997) COVID-19 Vaccine (2022- season) 2024 (Originally 04/23/2023) Bone Density Scan 09/08/2023 Depression Screening 07/09/2024 Lipid Panel 07/08/2027 Pneumococcal Vaccine: 65+ Years Completed RSV Immunization under 20 Months Aged Out HIB Vaccines Aged Out IPV Vaccines Aged Out Hepatitis A Vaccines Aged Out Meningococcal Vaccine Aged Out Rotavirus Vaccines Aged Out HPV Vaccines Aged Out Hepatitis B Vaccines Discontinued Hepatitis C Screening Discontinued Colorectal Cancer Screening Discontinued List of current healthcare providers: Patient Care Team: Nicholas Angelo MD as PCP - General Orders Placed This Encounter Procedures Comprehensive metabolic panel Standing Status: Future Number of Occurrences: 1 Standing Expiration Date: 07/09/2024 CBC Standing Status: Future Number of Occurrences: 1 Standing Expiration Date: 07/09/2024 Lipid panel Standing Status: Future Number of Occurrences: 1 Standing Expiration Date: 07/09/2024 Subjective : Review of Systems Constitutional: Negative. HENT: Negative. Eyes: Negative. Respiratory: Negative. Cardiovascular: Negative. Gastrointestinal: Negative. Genitourinary: Negative. Musculoskeletal: Negative for arthralgias and gait problem. Neurological: Negative. Psychiatric/Behavioral: Negative. Physical Exam Constitutional: General: She is not in acute distress. Appearance: Normal appearance. She is normal weight. She is not ill-appearing. HENT: Head: Normocephalic and atraumatic. Right Ear: Tympanic membrane, ear canal and external ear normal. There is no impacted cerumen. Left Ear: Tympanic membrane, ear canal and external ear normal. There is no impacted cerumen. Nose: Nose normal. No congestion or rhinorrhea. Mouth/Throat: Mouth: Mucous membranes are moist. Pharynx: Oropharynx is clear. Uvula midline. No oropharyngeal exudate or posterior oropharyngeal erythema. Eyes: Conjunctiva/sclera: Conjunctivae normal. Pupils: Pupils are equal, round, and reactive to light. Cardiovascular: Rate and Rhythm: Normal rate and regular rhythm. Pulses: Normal pulses. Heart sounds: Normal heart sounds. Pulmonary: Effort: Pulmonary effort is normal. No respiratory distress. Breath sounds: Normal breath sounds. Abdominal: General: Abdomen is flat. Bowel sounds are normal. Palpations: Abdomen is soft. Tenderness: There is no abdominal tenderness. There is no right CVA tenderness or left CVA tenderness. Musculoskeletal: General: Normal range of motion. Cervical back: Normal range of motion and neck supple. No rigidity or tenderness. Lymphadenopathy: Cervical: No cervical adenopathy. Skin: General: Skin is warm and dry. Findings: No erythema or rash. Neurological: General: No focal deficit present. Mental Status: She is alert and oriented to person, place, and time. Psychiatric: Mood and Affect: Mood normal. Behavior: Behavior normal. Over the past 2 weeks, how often have you been bothered by any of the following problems? Trouble falling or staying asleep, or sleeping too much: Not at all Feeling tired or having little energy: Not at all Poor appetite or overeating: Not at all Feeling bad about yourself - or that you are a failure or have let yourself or your family down: Not at all Trouble concentrating on things, such as reading the newspaper or watching television: Not at all Moving or speaking so slowly that other people could have noticed? Or the opposite - being so fidgety or restless that you have been moving around a lot more than usual.: Not at all Thoughts that you would be better off or hurting yourself in some way: Not at all Patient Health Questionnaire-9 Score: 0 Over the last 2 weeks, how often have you been bothered by any of the following problems? Feeling nervous, anxious, or on edge: Not at all Not being able to stop or control worrying: Not at all Worrying too much about different things: Not at all Trouble relaxing: Not at all Being so restless that it is hard to sit still: Not at all Becoming easily annoyed or irritable: Not at all Feeling afraid as if something awful might happen: Not at all ANAHY-7 Total Score: 0 Health Risk Assessment: General: General In general, how would you say your health is?: Very good In the past 7 days, have you experienced any of the following: New or Increased Pain, New or Increased Fatigue, Loneliness, Social Isolation, Stress or Anger?: No Do you get the social and emotional suppport you need?: Yes Health Habits/Nutrition: Health Habits / Nutrition On average, how many days per week do you engage in moderate to strenous exercise (like a brisk walk)?: 2 days On average, how man minutes do you engage in exercise at this level?: 50 min Have you lost any weight without trying in the past 3 months? : No Have you seen the dentist within the past year?: Yes Hearing/ Vision: Hearing / Vision Do you or your family notice any trouble with your hearing that hasn't been managed with hearing aids?: No Do you have difficulty driving, watching TV, or doing any of your daily activities because of your eyesight?: No Have you had an eye exam within the past year?: Yes No results found. Safety: Safety Do you have a working smoke detector?: Yes Do you have any tripping hazards - loose or unsecured carpets or rugs?: No Do you have any tripping hazards - clutter in doorways, halls, or stairs?: No Do you have either shower bars, grab bars, non-slip mats or non-slip surfaces in your shower or bathtub? : Yes Do all your stairways have a railing or banister? : Yes Do you fasten your seatbelt when you are in a car?: Yes ADL: ADL In the past 7 days, did you need help from others to perform any of the following everyday activities: Eating, dressing, grooming,bathing, toileting, or walking / balance? : No In the past 7 days, did you need help from others to take care of any of the following: laundry, housekeeping, banking / finances,shopping, telephone use, food preparation, transportation, or taking medications? : No Living Will: Living Will Do you have a living will?: Yes Cognitive: Cognitive Screening: Mini-Cog Clock Drawing Test (CDT): 2 Words Recalled: 3 Total Score: 5 Total Score Interpretation: Normal Mini-Cog Fall Risk: Fall Risk One or more falls in the last year:: No Advised to use a cane or walker to get around safely:: No Feels unsteady when walking:: No Steadies self on furniture while walking at home:: No Worried about falling:: No Depression Screening: Over the past 2 weeks, how often have you been bothered by any of the following problems? Little interest or pleasure in doing things: Not at all Feeling down, depressed, or hopeless: Not at all Patient Health Questionnaire-2 Score: 0 Over the past 2 weeks, how often have you been bothered by any of the following problems? Trouble falling or staying asleep, or sleeping too much: Not at all Feeling tired or having little energy: Not at all Poor appetite or overeating: Not at all Feeling bad about yourself - or that you are a failure or have let yourself or your family down: Not at all Trouble concentrating on things, such as reading the newspaper or watching television: Not at all Moving or speaking so slowly that other people could have noticed? Or the opposite - being so fidgety or restless that you have been moving around a lot more than usual.: Not at all Thoughts that you would be better off or hurting yourself in some way: Not at all Patient Health Questionnaire-9 Score: 0 If you checked off any problems on this questionnaire so far, How difficult have these problems made it for you to do your work, take care of things at home, or get along with other people?: Not difficult at all Interventions: Tobacco Use: Social History Tobacco Use Smoking Status Never Smokeless Tobacco Never Alcohol Use: No alcohol use. Objective : BP (!) 148/72 Pulse 78 Temp 36.6 C (97.8 F) (Infrared) Resp 16 Ht 5' 6" (1.676 m) Wt 184 lb 3.2 oz (83.6 kg) SpO2 98% BMI 29.73 kg/m No results found. documented in this encounter [facility] 07-12-2023 Instructions ASHOK Nelson CNP - 07/12/2023 8:00 AM EST Personalized Preventative Plan for Irasema Macdonald - 07/12/2023 Medicare offers a range of preventative health benefits. Some of the tests and screenings are paid in full while others may be subject to a deductible, co-insurance, and / or copay. Some of these benefits include a comprehensive review of your medical history including lifestyle, illnesses that may run in your family, and various assessments and screenings as appropriate. After reviewing your medical record and screening and assessments performed today, your provider may have ordered immunizations, labs, imaging, and / or referrals for you. A list of these orders (if applicable) as well as your Preventative Care list are included within your After Visit Summary for your review. Other Preventative Recommendations: A preventive eye exam by an sports marketing specialist is recommended every 1-2 years to screen for glaucoma, cataracts, macular degeneration, and other eye disorders. A preventive dental visit is recommended every 6 months. Try to get at least 150 minutes of exercise per week or 10,000 steps per day on a pedometer. You need 1200-1500mg of calcium and 3610-8350 international units of vitamin D per day. It is possible to meet your calcium requirement with diet alone, but a vitamin D supplement is usually necessary to meet this goal. When exposed to the sun, use a sunscreen that protects against both UVA and UVB radiation with an SPF of 30 or greater. Reapply every 2-3 hours or after sweating, drying off with a towel, or swimming. Always wear a seat belt when traveling in a car. Always wear a helmet when riding a bicycle or a motorcycle documented in this encounter [facility] 07-12-2023 Note Addended by: MELISSA TORRES on: 07/12/2023 09:28 AM Modules accepted: Orders [facility] 03-15-2023 History of Present illness Narrative Post Operative: Surgery Date 02/25/23. Surgical Procedure Laparoscopic appendectomy Patient has no complaints today. Incision(s) healing well. Patient has returned back to normal activities and regular diet. Pathology APPENDIX, APPENDECTOMY:- SERRATED LESION WITH DYSPLASIA - MARGINS ARE NEGATIVE. Activity as tolerated. Overall patient is doing well and I can see them on a p.r.n basis. Recommend following up GI in regards to repeat colonoscopy. No orders of the defined types were placed in this encounter. ASHOK Nance CNP documented in this encounter [facility] 02-25-2023 Hospital Discharge instructions Pierre Jordan MD - 02/25/2023 9:44 AM EDT POST-OPERATIVE INSTRUCTIONS LAPAROSCOPIC SURGERY Thank you very much for allowing me to participate in your care, it is truly a privilege. Below please see discharge orders that will help you during your recovery. Please do not hesitate to call the office at [phone] for any questions. After hours, the same number will allow you to reach the on-call surgeon. Call the office to schedule your post-operative appointment with Dr. Jordan or Nurse Practitioner for 2 weeks if not already scheduled. (May need to be seen before 2 weeks if stitches and/or drains present) Change bandages daily or more frequently if needed. Keep incisions clean with soap/ water daily. (Peroxide OK as well) Cover incision(s) as needed. Please remove the Steri-Strips as instructed 5 days after your date of surgery. This includes any clear bandages and gauze placed in the navel, if applicable. If you have skin glue this will come off on its own May place an ice pack over your incisions on and off (15min) at a time for the next 24-48 hours. Resume regular diet as tolerated (recommend starting with liquids) General guidelines for activity: Avoid strenuous activity or lifting anything heavier than 15 pounds. It is OK to be up and walking around. Going up and down stairs is also OK. Do what is comfortable: stop and rest when you feel tired. It is OK to shower after 24 hours You will have pain medicine ordered. Take as directed/needed. Some discomfort, mild bruising, and swelling are not unusual; please call my office if you have any severe pain, hemorrhage, or high fever (over 101 F) During the laparoscopic procedure that you had, gas is pumped into the abdominal cavity. You may feel abdominal, shoulder, or rib pain for a few days due to this. Resume home medications (see medication reconciliation sheet) Do NOT drive for one day and while taking your narcotic pain medicine. Watch for signs of infection: Excessive warmth or bright redness around your incisions Leakage of bloody or cloudy fluid from you incisions Fever over 100.5 If you experience constipation Increase your water intake. Increase your activity; walking is best. An over the counter stool softener or mild laxative may be necessary if you still have not had a bowel movement after several days. Please call the office at [phone] for any questions and too make your post op appointment if needed. Thank you again for allowing me to participate in your care, and get well soon! Pierre Jordan MD FACS The following attachments cannot be sent through Care Everywhere.General Anesthesia Discharge Instructions (Paraguayan)documented in this encounter [facility] 02-25-2023 Miscellaneous Notes OPERATIVE NOTE DATE OF PROCEDURE: 02/25/2023 SURGEON: PIERRE JORDAN M.D. PLATER HELPER: Chelsey jason PREOPERATIVE DIAGNOSIS: Unresectable polyp appendiceal orifice POSTOPERATIVE DIAGNOSIS: Same OPERATION: Laparoscopic appendectomy ANESTHESIA: General anesthesia ESTIMATED BLOOD LOSS: Minimal COMPLICATIONS: None SPECIMENS: Appendix Wound Classification Surgical Wound Classification [] Class I/Clean [] Class II/Clean-Contaminated [] Class III/Contaminated [] ClassIV/Dirty-Infected HISTORY: The patient is a 77 y.o. year old female with history of above preop diagnosis. She had recent colonoscopy which showed small sessile polyp in the appendiceal orifice and fragments showed villous like structure as well as atypia. Unable to remove endoscopically so here for extended appendectomy. I explained the risk, benefits, expected outcome, and alternatives to the procedure. Patient understands and is in agreement to proceed with operation. PROCEDURE: Patient taken to the operating room and placed supine on the operating table. After adequate anesthesia and timeout protocol was completed. The abdomen was prepped and draped in standard sterile fashion. Local anesthetic was placed at each incision site prior to making each incision. 5mm infraumbilical incision made and Veress needle placed intraabdominal with proper placement confirmed by normal flush saline. Pneumoperitoneum was established with CO2 gas to pressure of 15 mm Hg and 5mm non-bladed infraumbilical port then placed. Under direct vision, a 10/12 mm non-bladed port was inserted in the left lower quadrant. One 5mm non-bladed port was placed midline supra pubic under direct visualization. Camera was then inserted into the infraumbilical port and the cecum was identified and normal-appearing appendix was also identified. This was grasped at mid body and retracted away from the cecum with Anna Maria grasper. The mesoappendix was divided using Enseal device and the sale of Treves further divided allowing for cuff of cecum to be included with the appendix and the staple line and the appendix was then divided using endoscopic SIMONE linear cutting stapler. Appendix was then removed from abdomen using a laparoscopic bag. The right lower quadrant was irrigated until clear. Hemostasis was observed. The abdomen was then desulflated and cannulas removed. The wounds were irrigated and the skin incisions closed with interrupted 4-0 Vicryl subcuticular sutures. Benzoin, steri strips, and sterile dressings were applied. The sponge and needle count were correct. The patient tolerated the procedure well and was sent to PACU in stable condition. Pierre Jordan M.D. documented in this encounter [facility] 02-25-2023 Note Formatting of this n ote is different from the original. OPERATIVE NOTE DATE OF PROCEDURE: 02/25/2023 SURGEON: PIERRE JORDAN M.D. PLATER HELPER: Chelsey jason PREOPERATIVE DIAGNOSIS: Unresectable polyp appendiceal orifice POSTOPERATIVE DIAGNOSIS: Same OPERATION: Laparoscopic appendectomy ANESTHESIA: General anesthesia ESTIMATED BLOOD LOSS: Minimal COMPLICATIONS: None SPECIMENS: Appendix Wound Classification Surgical Wound Classification [] Class I/Clean [] Class II/Clean-Contaminated [] Class III/Contaminated [] ClassIV/Dirty-Infected HISTORY: The patient is a 77 y.o. year old female with history of above preop diagnosis. She had recent colonoscopy which showed small sessile polyp in the appendiceal orifice and fragments showed villous like structure as well as atypia. Unable to remove endoscopically so here for extended appendectomy. I explained the risk, benefits, expected outcome, and alternatives to the procedure. Patient understands and is in agreement to proceed with operation. PROCEDURE: Patient taken to the operating room and placed supine on the operating table. After adequate anesthesia and timeout protocol was completed. The abdomen was prepped and draped in standard sterile fashion. Local anesthetic was placed at each incision site prior to making each incision. 5mm infraumbilical incision made and Veress needle placed intraabdominal with proper placement confirmed by normal flush saline. Pneumoperitoneum was established with CO2 gas to pressure of 15 mm Hg and 5mm non-bladed infraumbilical port then placed. Under direct vision, a 10/12 mm non-bladed port was inserted in the left lower quadrant. One 5mm non-bladed port was placed midline supra pubic under direct visualization. Camera was then inserted into the infraumbilical port and the cecum was identified and normal-appearing appendix was also identified. This was grasped at mid body and retracted away from the cecum with Anna Maria grasper. The mesoappendix was divided using Enseal device and the sale of Treves further divided allowing for cuff of cecum to be included with the appendix and the staple line and the appendix was then divided using endoscopic SIMONE linear cutting stapler. Appendix was then removed from abdomen using a laparoscopic bag. The right lower quadrant was irrigated until clear. Hemostasis was observed. The abdomen was then desulflated and cannulas removed. The wounds were irrigated and the skin incisions closed with interrupted 4-0 Vicryl subcuticular sutures. Benzoin, steri strips, and sterile dressings were applied. The sponge and needle count were correct. The patient tolerated the procedure well and was sent to PACU in stable condition. Pierre Jordan M.D. [facility] 02-25-2023 Note Formatting of this n ote is different from the original. OPERATIVE NOTE DATE OF PROCEDURE: 02/25/2023 SURGEON: PIERRE JORDAN M.D. PLATER HELPER: Chelsey jason PREOPERATIVE DIAGNOSIS: Unresectable polyp appendiceal orifice POSTOPERATIVE DIAGNOSIS: Same OPERATION: Laparoscopic appendectomy ANESTHESIA: General anesthesia ESTIMATED BLOOD LOSS: Minimal COMPLICATIONS: None SPECIMENS: Appendix Wound Classification Surgical Wound Classification [] Class I/Clean [] Class II/Clean-Contaminated [] Class III/Contaminated [] ClassIV/Dirty-Infected HISTORY: The patient is a 77 y.o. year old female with history of above preop diagnosis. She had recent colonoscopy which showed small sessile polyp in the appendiceal orifice and fragments showed villous like structure as well as atypia. Unable to remove endoscopically so here for extended appendectomy. I explained the risk, benefits, expected outcome, and alternatives to the procedure. Patient understands and is in agreement to proceed with operation. PROCEDURE: Patient taken to the operating room and placed supine on the operating table. After adequate anesthesia and timeout protocol was completed. The abdomen was prepped and draped in standard sterile fashion. Local anesthetic was placed at each incision site prior to making each incision. 5mm infraumbilical incision made and Veress needle placed intraabdominal with proper placement confirmed by normal flush saline. Pneumoperitoneum was established with CO2 gas to pressure of 15 mm Hg and 5mm non-bladed infraumbilical port then placed. Under direct vision, a 10/12 mm non-bladed port was inserted in the left lower quadrant. One 5mm non-bladed port was placed midline supra pubic under direct visualization. Camera was then inserted into the infraumbilical port and the cecum was identified and normal-appearing appendix was also identified. This was grasped at mid body and retracted away from the cecum with Rj grasper. The mesoappendix was divided using Enseal device and the sale of Treves further divided allowing for cuff of cecum to be included with the appendix and the staple line and the appendix was then divided using endoscopic SIMONE linear cutting stapler. Appendix was then removed from abdomen using a laparoscopic bag. The right lower quadrant was irrigated until clear. Hemostasis was observed. The abdomen was then desulflated and cannulas removed. The wounds were irrigated and the skin incisions closed with interrupted 4-0 Vicryl subcuticular sutures. Benzoin, steri strips, and sterile dressings were applied. The sponge and needle count were correct. The patient tolerated the procedure well and was sent to PACU in stable condition. Pierre Jordan M.D. [facility] 01-19-2023 Telephone encounter Note Prescription Request: Last medication check: 01/05/23 Last physical exam: 07/08/22 Next scheduled appointment: 07/12/23 CSA on file (date): na Last urine drug screen: na Last date of refill on this medication 07/08/22 90 day 1 refill [facility] 01-19-2023 Miscellaneous Notes Prescription Request: Last medication check: 01/05/23 Last physical exam: 07/08/22 Next scheduled appointment: 07/12/23 CSA on file (date): na Last urine drug screen: na Last date of refill on this medication 07/08/22 90 day 1 refill documented in this encounter [facility] 01-19-2023 Telephone encounter Note Prescription Request: Last medication check: 01/05/23 Last physical exam: 07/08/22 Next scheduled appointment: 07/12/23 CSA on file (date): na Last urine drug screen: na Last date of refill on this medication 07/07/22 90 day 1 refill [facility] 01-19-2023 Miscellaneous Notes Prescription Request: Last medication check: 01/05/23 Last physical exam: 07/08/22 Next scheduled appointment: 07/12/23 CSA on file (date): na Last urine drug screen: na Last date of refill on this medication 07/07/22 90 day 1 refill documented in this encounter [facility] 01-05-2023 Evaluation + Plan note Associated Problem(s): Anemia Unsure etiology. Will recheck cbc with iron studies. Await colonoscopy report. [facility] 01-05-2023 Miscellaneous Notes Associated Problem(s): Anemia Unsure etiology. Will recheck cbc with iron studies. Await colonoscopy report. Associated Problem(s): Anxiety Mild. Continue lorazepam. Oarrs reviewed and consistent with treatment plan. CS agreement in place. Associated Problem(s): Hyperlipidemia Controlled continue rosuvastatin 20 mg daily Associated Problem(s): Overweight (BMI 25.0-29.9) Encourage weight loss, weight bearing exercises. Associated Problem(s): Age-related osteoporosis without current pathological fracture Discussed risks and benefits of Boniva (ibandronate), patient would like to start medication. Continue calcium and vitamin d, Plan to repeat Dexa scan in 2 years. Associated Problem(s): Localized, primary osteoarthritis Stable. Symptoms well controlled. Not taking medication. Associated Problem(s): Essential hypertension Controlled. Initially elevated. Repeat improved. Home readings are good. Continue losartan 50 mg daily, hydrochlorothiazide 12.5 mg daily documented in this encounter [facility] 01-05-2023 Evaluation + Plan note Associated Problem(s): Anxiety Mild. Continue lorazepam. Oarrs reviewed and consistent with treatment plan. CS agreement in place. [facility] 01-05-2023 Evaluation + Plan note Associated Problem(s): Hyperlipidemia Controlled continue rosuvastatin 20 mg daily [facility] 01-05-2023 Evaluation + Plan note Associated Problem(s): Overweight (BMI 25.0-29.9) Encourage weight loss, weight bearing exercises. [place] [id number] Evaluation + Plan note Associated Problem(s): Age-related osteoporosis without current pathological fracture Discussed risks and benefits of Boniva (ibandronate), patient would like to start medication. Continue calcium and vitamin d, Plan to repeat Dexa scan in 2 years. [facility] 01-05-2023 Evaluation + Plan note Associated Problem(s): Localized, primary osteoarthritis Stable. Symptoms well controlled. Not taking medication. [facility] 01-05-2023 Evaluation + Plan note Associated Problem(s): Essential hypertension Controlled. Initially elevated. Repeat improved. Home readings are good. Continue losartan 50 mg daily, hydrochlorothiazide 12.5 mg daily [facility] 01-05-2023 History of Present illness Narrative Images from the original note were not included. 01/05/2023 Irasema Macdonald (: 1945) is a 77 y.o. female , Established patient, here for evaluation of the following chief complaint(s): Hypertension, Anxiety, Hyperlipidemia, and Medication Check ASSESSMENT/PLAN: 1. Essential hypertension Assessment & Plan: Controlled. Initially elevated. Repeat improved. Home readings are good. Continue losartan 50 mg daily, hydrochlorothiazide 12.5 mg daily 2. Localized, primary osteoarthritis Assessment & Plan: Stable. Symptoms well controlled. Not taking medication. 3. Mixed hyperlipidemia Assessment & Plan: Controlled continue rosuvastatin 20 mg daily 4. Anxiety Assessment & Plan: Mild. Continue lorazepam. Oarrs reviewed and consistent with treatment plan. CS agreement in place. Orders: - LORazepam (Ativan) 0.5 MG tablet; Take 1 tablet (0.5 mg) by mouth 3 times daily as needed for anxiety for up to 7 days., Starting Wed01/05/2023, Until Wed01/12/2023 at 2359, Normal 5. Overweight (BMI 25.0-29.9) Assessment & Plan: Encourage weight loss, weight bearing exercises. 6. Age-related osteoporosis without current pathological fracture Assessment & Plan: Discussed risks and benefits of Boniva (ibandronate), patient would like to start medication. Continue calcium and vitamin d, Plan to repeat Dexa scan in 2 years. 7. Anemia, unspecified type Assessment & Plan: Unsure etiology. Will recheck cbc with iron studies. Await colonoscopy report. Orders: - CBC auto differential - Iron and TIBC - Ferritin Follow up for as directed pending test results. SUBJECTIVE/OBJECTIVE: HPI - Irasema Macdonald (: 1945) is a 77 y.o. female , Established patient, here for the evaluation of the following chief complaint(s): Hypertension, Anxiety, Hyperlipidemia, and Medication Check Essential hypertension- bp high, had colonoscopy yesterday. Blood pressure at home ranges 105/66 to 127/68, is high at doctor's office. osteoarthritis- mostly knees, right now is not bothering.does not need to take anything for it. Mixed hyperlipidemia- controlled , taking rosuvastatin without issues. Anxiety- is ok - gets nervous going to doctors appt. Was taking lorazepam intermittently lorazepam 0.[address], Osteoporosis- Dexa scan 08/2022 FRACTURE RISK: The estimated 10 year risk for a hip fracture is 6.7% and for a major osteoporosis-related fracture is 23%. (FRAX Version 3.08). was prescribed boniva, however reports that she did not start it for concerns of possible side effects, does take calcium and vit d daily. Reviewed dexa results with her and discussed risks and benefits of Boniva- states she will try boniva Anemia. Noted last year slight drop in hemoglobin to 10.7. she did start iron supplement at that time and was wondering if she needed to continue it. Stopped about 1 week ago. She did get a colonoscopy completed yesterday and states she had some polyps removed. Awaiting pathology report. Dr. Martinez said that she may need to have her appendix out as it is keeping him from being able to remove polyps in the area. Denies any shortness of breath or chest pain, no dizziness or lightheadedness. Prior to Admission medications Medication Sig Start Date End Date Taking? Authorizing Provider ascorbic acid (Vitamin C) 250 MG tablet Take 250 mg by mouth in the morning. Historical Provider, aspirin 81 MG chewable tablet Chew 81 mg in the morning. Historical Provider, CALCIUM CARBONATE-VIT D-MIN PO Take 1 capsule by mouth in the morning. Historical Provider, Cranberry-Cholecalciferol 4200-500 MG-UNIT capsule Take by mouth. Historical Provider, ferrous sulfate 325 (65 Fe) MG EC tablet TAKE 1 TABLET (325 MG) BY MOUTH DAILY. DO NOT CRUSH, CHEW, OR SPLIT. 12/09/22 04/08/23 ASHOK Flores CNP hydroCHLOROthiazide (HYDRODiuril) 12.5 MG tablet TAKE 1 TABLET BY MOUTH EVERY DAY 07/07/22 Nicholas Angelo MD ibandronate (Boniva) 150 MG tablet Take 1 tablet (150 mg) by mouth every 30 (thirty) days. Take in morning with full glass of water on an empty stomach. No food, drink, meds, or lying down for 60 minutes after. 09/09/22 Nicholas Angelo MD losartan (Cozaar) 50 MG tablet Take 1 tablet (50 mg) by mouth in the morning. 07/08/22 ASHOK Flores CNP rosuvastatin (Crestor) 20 MG tablet TAKE 1 TABLET BY MOUTH EVERY DAY 08/06/22 Nicholas Angelo MD Health Maintenance Due Topic Date Due Diabetes Screening Never done Review of Systems Constitutional: Negative. HENT: Negative. Respiratory: Negative for shortness of breath. Cardiovascular: Negative for chest pain. Gastrointestinal: Negative for abdominal pain, nausea and vomiting. Genitourinary: Negative for difficulty urinating. Musculoskeletal: Negative. Neurological: Negative for dizziness and light-headedness. Psychiatric/Behavioral: The patient is nervous/anxious. Vitals: 01/05/23 0905 01/05/23 0952 BP: (!) 160/90 (!) 142/80 Pulse: 76 60 SpO2: 98% Weight: 181 lb (82.1 kg) Height: 5' 6" (1.676 m) Physical Exam Constitutional: General: She is not in acute distress. Appearance: Normal appearance. She is normal weight. She is not ill-appearing. HENT: Head: Normocephalic and atraumatic. Right Ear: Tympanic membrane, ear canal and external ear normal. There is no impacted cerumen. Left Ear: Tympanic membrane, ear canal and external ear normal. There is no impacted cerumen. Nose: Nose normal. No congestion or rhinorrhea. Mouth/Throat: Mouth: Mucous membranes are moist. Pharynx: Oropharynx is clear. Uvula midline. No oropharyngeal exudate or posterior oropharyngeal erythema. Eyes: Conjunctiva/sclera: Conjunctivae normal. Pupils: Pupils are equal, round, and reactive to light. Cardiovascular: Rate and Rhythm: Normal rate and regular rhythm. Pulses: Normal pulses. Heart sounds: Normal heart sounds. Pulmonary: Effort: Pulmonary effort is normal. No respiratory distress. Breath sounds: Normal breath sounds. Abdominal: General: Abdomen is flat. Bowel sounds are normal. Palpations: Abdomen is soft. Tenderness: There is no abdominal tenderness. There is no right CVA tenderness or left CVA tenderness. Musculoskeletal: General: Normal range of motion. Cervical back: Normal range of motion and neck supple. No rigidity or tenderness. Lymphadenopathy: Cervical: No cervical adenopathy. Skin: General: Skin is warm and dry. Findings: No erythema or rash. Neurological: General: No focal deficit present. Mental Status: She is alert and oriented to person, place, and time. Psychiatric: Mood and Affect: Mood normal. Behavior: Behavior normal. An electronic signature was used to authenticate this note. ASHOK Nelson CNP 01/05/2023 7:58 AM documented in this encounter [facility] 12-09-2022 Telephone encounter Note Rx sent. Last filled 07/20/22 with 3 refills. [facility] 12-09-2022 Miscellaneous Notes Rx sent. Last filled 07/20/22 with 3 refills. Prescription Request: Last medication check: 01/07/22 Last physical exam: 07/08/22 Next scheduled appointment: 01/05/23 Last date of refill on this medication I do not see iron tabs listed on either chart. documented in this encounter [facility] 12-09-2022 Telephone encounter Note Prescription Request: Last medication check: 01/07/22 Last physical exam: 07/08/22 Next scheduled appointment: 01/05/23 Last date of refill on this medication I do not see iron tabs listed on either chart. [facility] 08-26-2022 Evaluation + Plan note Associated Problem(s): Acute cystitis without hematuria UA + leuks, nitr. Will send for culture. Start cephalexin 500 mg every 6 hours x 7 days. Likely unresolved UTI. Patient with several allergies to antibiotics. [facility] 08-26-2022 Miscellaneous Notes Associated Problem(s): Acute cystitis without hematuria UA + leuks, nitr. Will send for culture. Start cephalexin 500 mg every 6 hours x 7 days. Likely unresolved UTI. Patient with several allergies to antibiotics. documented in this encounter [facility] 08-26-2022 History of Present illness Narrative Relief Man for Intimate and Non Intimate Exam Relief Man was declined Relief Man: na Images from the original note were not included. 08/26/2022 Irasema Macdonald (: 1945) is a 76 y.o. female , Established patient, here for evaluation of the following chief complaint(s): UTI and Urinary Frequency (/) ASSESSMENT/PLAN: 1. Acute cystitis without hematuria Assessment & Plan: UA + leuks, nitr. Will send for culture. Start cephalexin 500 mg every 6 hours x 7 days. Patient with several allergies to antibiotics. Orders: - Urine culture (clean catch) - cephalexin (Keflex) 500 MG capsule; Take 1 capsule (500 mg) by mouth in the morning and 1 capsule (500 mg) at noon and 1 capsule (500 mg) in the evening and 1 capsule (500 mg) before bedtime. Do all this for 7 days., Starting Wed08/26/2022, Until Wed09/02/2022, Normal 2. Dysuria - POCT urinalysis dipstick manually resulted Reviewed and provided written patient education/instructions regarding diagnosis and management. Reviewed symptom management with non-pharmacological interventions and appropriate use of otc medications for relief of symptoms. Follow up for worsening or no improvement in symptoms. Follow up if symptoms worsen or fail to improve. SUBJECTIVE/OBJECTIVE: HPI - UTI symptoms. Increased frequency and slightly nauseated. No fever or chills, no flank pain, no dysuria, X 1 day. - recently had UTI in July and treated with keflex three times daily x 7 days. Finished on 08/16/2022- felt like symptoms resolved at that time. Urine culture showed sensitivity to other 1st generation cephalosporins. Health Maintenance: Review of Systems Constitutional: Negative for chills, fatigue and fever. Genitourinary: Positive for frequency. Negative for difficulty urinating, dysuria, flank pain, pelvic pain and urgency. Vitals: 08/26/22 0943 Pulse: (!) (P) 112 Resp: (P) 14 Temp: (P) 36.9 C (98.4 F) SpO2: (P) 98% Weight: 181 lb (82.1 kg) Physical Exam Constitutional: General: She is not in acute distress. Appearance: Normal appearance. She is not ill-appearing. HENT: Head: Normocephalic and atraumatic. Cardiovascular: Rate and Rhythm: Normal rate and regular rhythm. Comments: Apical 92 Pulmonary: Effort: Pulmonary effort is normal. Breath sounds: Normal breath sounds. Abdominal: Tenderness: There is no right CVA tenderness or left CVA tenderness. Neurological: Mental Status: She is alert and oriented to person, place, and time. An electronic signature was used to authenticate this note. ASHOK Nelson CNP 08/26/2022 9:51 AM documented in this encounter [facility] 08-26-2022 Telephone encounter Note S: Patient called the clinical access center with complaint of UTI. B: Started today A: Patient reports recurrent UTI, seen in the office on 08/10/22 for the same thing, was prescribed an antibiotic for 7 days, felt fine until this morning, experiencing urinary frequency and odor, at home UTI test was +leukocytes, +nitrates, denies dysuria, hematuria, fever, side or lower back pain, requests appointment this morning due to has another appointment this afternoon. R: No available appointments this morning with Dr. Angelo, scheduled at 0940 with Sofia Roy NP, insurance coverage verified. Reason for Disposition Urinating more frequently than usual (i.e., frequency) Protocols used: Urinary [id number] [facility] 08-26-2022 Miscellaneous Notes S: Patient called the clinical access center with complaint of UTI. B: Started today A: Patient reports recurrent UTI, seen in the office on 08/10/22 for the same thing, was prescribed an antibiotic for 7 days, felt fine until this morning, experiencing urinary frequency and odor, at home UTI test was +leukocytes, +nitrates, denies dysuria, hematuria, fever, side or lower back pain, requests appointment this morning due to has another appointment this afternoon. R: No available appointments this morning with Dr. Angelo, scheduled at 0940 with Sofia Roy NP, insurance coverage verified. Reason for Disposition Urinating more frequently than usual (i.e., frequency) Protocols used: Urinary [id number] documented in this encounter [facility] Evaluation note No assessment inform ation available [facility] Work Phone: Evaluation note Diagnosis Iron deficiency Disorders of iron metabolism documented in this encounter [facility]* Diagnosis Essential hypertension- Primary Unspecified essential hypertension Localized, primary osteoarthritis Primary localized osteoarthrosis, specified site Mixed hyperlipidemia Anxiety Anxiety state, unspecified Overweight (BMI 25.0-29.9) Overweight Age-related osteoporosis without current pathological fracture Anemia, unspecified type documented in this encounter [facility]* Diagnosis Essential hypertension Unspecified essential hypertension documented in this encounter [facility]* Diagnosis Essential (primary) hypertension Unspecified essential hypertension [facility]* Diagnosis Benign neoplasm of colon, unspecified documented in this encounter [facility]* Diagnosis Postoperative examination- Primary Follow-up examination, following unspecified surgery S/P laparoscopic appendectomy Other postprocedural status documented in this encounter [facility]* Diagnosis Routine general medical examination at health care facility- Primary Routine general medical examination at a health care facility Essential hypertension Unspecified essential hypertension Anemia, unspecified type Mixed hyperlipidemia Essential (primary) hypertension Unspecified essential hypertension Anxiety Anxiety state, unspecified Hyperlipidemia, unspecified hyperlipidemia type Overweight (BMI 25.0-29.9) Overweight Encounter for screening mammogram for malignant neoplasm of breast documented in this encounter [facility]* Diagnosis Encounter for screening mammogram for malignant neoplasm of breast documented in this encounter [facility]* Diagnosis Essential (primary) hypertension Unspecified essential hypertension Hyperlipidemia, unspecified hyperlipidemia type Essential hypertension Unspecified essential hypertension documented in this encounter [facility]* Diagnosis Essential hypertension- Primary Unspecified essential hypertension Mixed hyperlipidemia Anxiety Anxiety state, unspecified documented in this encounter [facility]* Diagnosis Anxiety- Primary Anxiety state, unspecified Essential hypertension Unspecified essential hypertension Decreased calculated glomerular filtration rate (GFR) documented in this encounter [facility]* Diagnosis Essential hypertension- Primary Unspecified essential hypertension Localized, primary osteoarthritis Primary localized osteoarthrosis, specified site Mixed hyperlipidemia Anxiety Anxiety state, unspecified Overweight (BMI 25.0-29.9) Overweight Age-related osteoporosis without current pathological fracture Anemia, unspecified type Routine general medical examination at health care facility- Primary Routine general medical examination at a health care facility Essential hypertension Unspecified essential hypertension Anemia, unspecified type Mixed hyperlipidemia Essential (primary) hypertension Unspecified essential hypertension Anxiety Anxiety state, unspecified Hyperlipidemia, unspecified hyperlipidemia type Overweight (BMI 25.0-29.9) Overweight Encounter for screening mammogram for malignant neoplasm of breast Essential hypertension- Primary Unspecified essential hypertension Mixed hyperlipidemia Anxiety Anxiety state, unspecified Anxiety- Primary Anxiety state, unspecified Essential hypertension Unspecified essential hypertension Decreased calculated glomerular filtration rate (GFR) Essential hypertension Unspecified essential hypertension Hyperlipidemia, unspecified hyperlipidemia type Essential (primary) hypertension Unspecified essential hypertension documented in this encounter [facility]* Diagnosis Essential hypertension- Primary Unspecified essential hypertension Localized, primary osteoarthritis Primary localized osteoarthrosis, specified site Mixed hyperlipidemia Anxiety Anxiety state, unspecified Overweight (BMI 25.0-29.9) Overweight Age-related osteoporosis without current pathological fracture Anemia, unspecified type Routine general medical examination at health care facility- Primary Routine general medical examination at a health care facility Essential hypertension Unspecified essential hypertension Anemia, unspecified type Mixed hyperlipidemia Essential (primary) hypertension Unspecified essential hypertension Anxiety Anxiety state, unspecified Hyperlipidemia, unspecified hyperlipidemia type Overweight (BMI 25.0-29.9) Overweight Encounter for screening mammogram for malignant neoplasm of breast Essential hypertension- Primary Unspecified essential hypertension Mixed hyperlipidemia Anxiety Anxiety state, unspecified Anxiety- Primary Anxiety state, unspecified Essential hypertension Unspecified essential hypertension Decreased calculated glomerular filtration rate (GFR) Routine general medical examination at health care facility- Primary Routine general medical examination at a [facility] [place] [facility] Mixed hyperlipidemia Essential hypertension Unspecified essential hypertension Age-related osteoporosis without current pathological fracture Anxiety Anxiety state, unspecified Decreased calculated glomerular filtration rate (GFR) Anemia, unspecified type Encounter for screening mammogram for malignant neoplasm of breast Class 1 obesity due to excess calories with serious comorbidity and body mass index (BMI) of 30.0 to 30.9 in adult documented in this encounter [facility]* Diagnosis Acute cystitis without hematuria- Primary Dysuria documented in this encounter [facility]* Diagnosis Screening for osteoporosis Special screening for osteoporosis Menopause Symptomatic menopausal or female climacteric states documented in this encounter [facility]* Diagnosis Screening mammogram for breast cancer documented in this encounter [facility]* Diagnosis Essential hypertension- Primary Unspecified essential hypertension Localized, primary osteoarthritis Primary localized osteoarthrosis, specified site Mixed hyperlipidemia Anxiety Anxiety state, unspecified Overweight (BMI 25.0-29.9) Overweight Age-related osteoporosis without current pathological fracture Anemia, unspecified type Routine general medical examination at health care facility- Primary Routine general medical examination at a health care facility Essential hypertension Unspecified essential hypertension Anemia, unspecified type Mixed hyperlipidemia Essential (primary) hypertension Unspecified essential hypertension Anxiety Anxiety state, unspecified Hyperlipidemia, unspecified hyperlipidemia type Overweight (BMI 25.0-29.9) Overweight Encounter for screening mammogram for malignant neoplasm of breast Essential hypertension- Primary Unspecified essential hypertension Mixed hyperlipidemia Anxiety Anxiety state, unspecified Anxiety- Primary Anxiety state, unspecified Essential hypertension Unspecified essential hypertension Decreased calculated glomerular filtration rate (GFR) Routine general medical examination at health care facility- Primary Routine general medical examination at a health care facility Mixed hyperlipidemia Essential hypertension Unspecified essential hypertension Age-related osteoporosis without current pathological fracture Anxiety Anxiety state, unspecified Decreased calculated glomerular filtration rate (GFR) Anemia, unspecified type Encounter for screening mammogram for malignant neoplasm of breast Class 1 obesity due to excess calories with serious comorbidity and body mass index (BMI) of 30.0 to 30.9 in adult Encounter for screening mammogram for malignant neoplasm of breast [facility]* Diagnosis Essential hypertension- Primary Unspecified essential hypertension Localized, primary osteoarthritis Primary localized osteoarthrosis, specified site Mixed hyperlipidemia Anxiety Anxiety state, unspecified Overweight (BMI 25.0-29.9) Overweight Age-related osteoporosis without current pathological fracture Anemia, unspecified type Routine general medical examination at health care facility- Primary Routine general medical examination at a health care facility Essential hypertension Unspecified essential hypertension Anemia, unspecified type Mixed hyperlipidemia Essential (primary) hypertension Unspecified essential hypertension Anxiety Anxiety state, unspecified Hyperlipidemia, unspecified hyperlipidemia type Overweight (BMI 25.0-29.9) Overweight Encounter for screening mammogram for malignant neoplasm of breast Essential hypertension- Primary Unspecified essential hypertension Mixed hyperlipidemia Anxiety Anxiety state, unspecified Anxiety- Primary Anxiety state, unspecified Essential hypertension Unspecified essential hypertension Decreased calculated glomerular filtration rate (GFR) Routine general medical examination at health care facility- Primary Routine general medical examination at a health care facility Mixed hyperlipidemia Essential hypertension Unspecified essential hypertension Age-related osteoporosis without current pathological fracture Anxiety Anxiety state, unspecified Decreased calculated glomerular filtration rate (GFR) Anemia, unspecified type Encounter for screening mammogram for malignant neoplasm of breast Class 1 obesity due to excess calories with serious comorbidity and body mass index (BMI) of 30.0 to 30.9 in adult Essential (primary) hypertension Unspecified essential hypertension Hyperlipidemia, unspecified hyperlipidemia type Essential hypertension Unspecified essential hypertension documented in this encounter [facility]* Diagnosis Essential hypertension- Primary Unspecified essential hypertension Localized, primary osteoarthritis Primary localized osteoarthrosis, specified site Mixed hyperlipidemia Anxiety Anxiety state, unspecified Overweight (BMI 25.0-29.9) Overweight Age-related osteoporosis without current pathological fracture Anemia, unspecified type Routine general medical examination at health care facility- Primary Routine general medical examination at a health care facility Essential hypertension Unspecified essential hypertension Anemia, unspecified type Mixed hyperlipidemia Essential (primary) hypertension Unspecified essential hypertension Anxiety Anxiety state, unspecified Hyperlipidemia, unspecified hyperlipidemia type Overweight (BMI 25.0-29.9) Overweight Encounter for screening mammogram for malignant neoplasm of breast Essential hypertension- Primary Unspecified essential hypertension Mixed hyperlipidemia Anxiety Anxiety state, unspecified Anxiety- Primary Anxiety state, unspecified Essential hypertension Unspecified essential hypertension Decreased calculated glomerular filtration rate (GFR) Routine general medical examination at health care facility- Primary Routine general medical examination at a health care facility Mixed hyperlipidemia Essential hypertension Unspecified essential hypertension Age-related osteoporosis without current pathological fracture Anxiety Anxiety state, unspecified Decreased calculated glomerular filtration rate (GFR) Anemia, unspecified type Encounter for screening mammogram for malignant neoplasm of breast Class 1 obesity due to excess calories with serious comorbidity and body mass index (BMI) of 30.0 to 30.9 in adult Essential (primary) hypertension- Primary Unspecified essential hypertension Mixed hyperlipidemia Decreased calculated glomerular filtration rate (GFR) Age-related osteoporosis without current pathological fracture Anxiety Anxiety state, unspecified documented in this encounter [facility]* Diagnosis Essential hypertension- Primary Unspecified essential hypertension Localized, primary osteoarthritis Primary localized osteoarthrosis, specified site Mixed hyperlipidemia Anxiety Anxiety state, unspecified Overweight (BMI 25.0-29.9) Overweight Age-related osteoporosis without current pathological fracture Anemia, unspecified type Routine general medical examination at health care facility- Primary Routine general medical examination at a health care facility Essential hypertension Unspecified essential hypertension Anemia, unspecified type Mixed hyperlipidemia Essential (primary) hypertension Unspecified essential hypertension Anxiety Anxiety state, unspecified Hyperlipidemia, unspecified hyperlipidemia type Overweight (BMI 25.0-29.9) Overweight Encounter for screening mammogram for malignant neoplasm of breast Essential hypertension- Primary Unspecified essential hypertension Mixed hyperlipidemia Anxiety Anxiety state, unspecified Anxiety- Primary Anxiety state, unspecified Essential hypertension Unspecified essential hypertension Decreased calculated glomerular filtration rate (GFR) Routine general medical examination at health care facility- Primary Routine general medical examination at a health care facility Mixed hyperlipidemia Essential hypertension Unspecified essential hypertension Age-related osteoporosis without current pathological fracture Anxiety Anxiety state, unspecified Decreased calculated glomerular filtration rate (GFR) Anemia, unspecified type Encounter for screening mammogram for malignant neoplasm of breast Class 1 obesity due to excess calories with serious comorbidity and body mass index (BMI) of 30.0 to 30.9 in adult Essential (primary) hypertension- Primary Unspecified essential hypertension Mixed hyperlipidemia Decreased calculated glomerular filtration rate (GFR) Age-related osteoporosis without current pathological fracture Anxiety Anxiety state, unspecified Age-related osteoporosis without current pathological fracture documented in this encounter [facility]* Diagnosis Essential hypertension- Primary Unspecified essential hypertension Localized, primary osteoarthritis Primary localized osteoarthrosis, specified site Mixed hyperlipidemia Anxiety Anxiety state, unspecified Overweight (BMI 25.0-29.9) Overweight Age-related osteoporosis without current pathological fracture Anemia, unspecified type Routine general medical examination at health care facility- Primary Routine general medical examination at a health care facility Essential hypertension Unspecified essential hypertension Anemia, unspecified type Mixed hyperlipidemia Essential (primary) hypertension Unspecified essential hypertension Anxiety Anxiety state, unspecified Hyperlipidemia, unspecified hyperlipidemia type Overweight (BMI 25.0-29.9) Overweight Encounter for screening mammogram for malignant neoplasm of breast Essential hypertension- Primary Unspecified essential hypertension Mixed hyperlipidemia Anxiety Anxiety state, unspecified Anxiety- Primary Anxiety state, unspecified Essential hypertension Unspecified essential hypertension Decreased calculated glomerular filtration rate (GFR) Routine general medical examination at health care facility- Primary Routine general medical examination at a health care facility Mixed hyperlipidemia Essential hypertension Unspecified essential hypertension Age-related osteoporosis without current pathological fracture Anxiety Anxiety state, unspecified Decreased calculated glomerular filtration rate (GFR) Anemia, unspecified type Encounter for screening mammogram for malignant neoplasm of breast Class 1 obesity due to excess calories with serious comorbidity and body mass index (BMI) of 30.0 to 30.9 in adult Essential (primary) hypertension- Primary Unspecified essential hypertension Mixed hyperlipidemia Decreased calculated glomerular filtration rate (GFR) Age-related osteoporosis without current pathological fracture Anxiety Anxiety state, unspecified Essential (primary) hypertension Unspecified essential hypertension Essential hypertension Unspecified essential hypertension Hyperlipidemia, unspecified hyperlipidemia type [facility] instructions Additional Instructions Implant Used?: Yes [facility] Work Phone: Instructions* Attachments The following attachments cannot be sent through Care Everywhere. * Osteoporosis ([place]) documented in this [facility]* Attachments The following attachments cannot be sent through Care Everywhere. 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 Advance Directives and Living Will Power of Sandwich Artist Advance Directive Response Recorded Date/ Time Advance Directives Yes June 22, 2014 1:21pm Living Will Yes May 19, 2022 9:01am Power of Sandwich Artist Yes April 9:01am Advance Directive Response Recorded Date/ Time Advance Directives Yes June 22, 2014 1:21pm Living Will Yes May 19, 2022 9:01am Power of Sandwich Artist Yes April 9:01am Name of Medical Power of Sandwich Artist YAZAN MACDONALD May 19, 2022 9:01am Advance Directive Response Recorded Date/ Time Advance Directives Yes June 22, 2014 12:21pm Living Will Yes May 19, 2022 8:01am Power of Sandwich Artist Yes April 8:01am Name of Medical Power of Sandwich Artist YAZAN MACDONALD May 19, 2022 8:01am Documents on File Type Date Recorded 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 Advance Directives and Livin g Will 02/19/2023 10:09 AM Documents on File Type Date Recorded 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 Advance Directives and Livin g Will 02/19/2023 10:09 AM Documents on File Type Date Recorded 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 Advance Directives and Living Will 02/19/2023 10:09 AM Living Will Documentation 08/19/2022 [place] [facility] Declaration Advance Directive Response Recorded Date/ Time Advance Directives Yes June 22, 2014 12:21pm Living Will Yes May 19, 2022 8:01am Power of Sandwich Artist Yes April 8:01am Chief Complaint and Reason for Visit Chief Complaint OSTEOARTHRITIS LEFT KNEE *ANGELINE PROTOCOL* Chief Complaint OSTEOARTHRITIS LEFT KNEE *ANGELINE PROTOCOL* LT TOTAL KNEE W ANGELINE Chief Complaint LT TOTAL KNEE W ANGELINE GROSS HEMATURIA Additional Source Comments INFORMATION SOURCE (unrecogn ized section and content) DATE CREATED AUTHOR 09/27/2018 [facility] DATE CREATED AUTHOR AUTHOR'S ORGANIZ ATION 09/09/2021 [facility] DATE CREATED AUTHOR AUTHOR'S ORGANIZ ATION 07/23/2023 [facility] DATE CREATED AUTHOR AUTHOR'S ORGANIZ ATION 06/12/2025 [facility] Goals (unrecognized section and content) Goals may be documented in a n alternate sectionGoals may be documented in an alternate section Care Teams (unrecognized sec tion and content) Team Status: Active Member Role Status Dates Dr. Nicholas Angelo MD Family Provider Active Dr. Nicholas Angelo MD Primary Care Provider Active Team Status: Inactive Member Role Status Dates Dr. Nicholas Angelo MD Primary Care Provider Active Dr. Christiano Angelo MD Attending Provider, Referring P roproder Active Team Status: Inactive Member Role Status Dates Dr. Renard Tavera MD Attending Provider, Referr ing Provider Active Team Status: Active Member Role Status Dates Dr. Renard Tavera MD Attending Provider, Referr ing Provider Active Dr. Nicholas Angelo MD Primary Care Provider Active Team Status: Inactive Member Role Status Dates Dr. Renard Tavera MD Attending Provider, Referr ing Provider Active Dr. Nicholas Angelo MD Primary Care Provider Active Team Status: Active Member Role Status Dates Dr. Nicholas Angelo MD Primary Care Provider Active Dr. Renard Tavera MD Attending Provider Active Aircraft Maintenance Engineer Relationship Specialty Start Date End Date Nicholas Angelo MD [address] [place] [address] [id number] PCP - General 08/23/18 Aircraft Maintenance Engineer Relationship Specialty Start Date End Date Nicholas Angelo MD [address] [place] [address] [id number] PCP - General 08/23/18 Aircraft Maintenance Engineer Relationship Specialty Start Date End Date Nicholas Angelo MD [address] [place], [place] [address] [address] PCP - General 08/23/18 Aircraft Maintenance Engineer Relationship Specialty Start Date End Date Nicholas Angelo MD [address] [place], [place] [address], [place] [address] PCP - General 08/23/18 Aircraft Maintenance Engineer Relationship Specialty Start Date End Date Nicholas Angelo MD [address] [facility], [place] [phone] PCP - General 08/23/18 Aircraft Maintenance Engineer Relationship Specialty Start Date End Date Nicholas Angelo MD [address] [place], [place] [id number] PCP - General 08/23/18 Team Status: Inactive Member Role Status Dates Dr. Nicholas Angelo MD Primary Care Provider Active Gracie Morales Attending Provider, Referring Provide r Active Aircraft Maintenance Engineer Relationship Specialty Start Date End Date Nicholas Angelo MD [address] [facility] [place] [address] PCP - General 08/23/18 Aircraft Maintenance Engineer Relationship Specialty Start Date End Date Nicholas Angelo MD [address] [place] [address] PCP - General 08/23/18 Aircraft Maintenance Engineer Relationship Specialty Start Date End Date Nicholas Angelo MD [address] [place] [address] PCP - General 08/23/18 Aircraft Maintenance Engineer Relationship Specialty Start Date End Date Nicholas Angelo MD [address] [place] [address] PCP - General 08/23/18 Aircraft Maintenance Engineer Relationship Specialty Start Date End Date Nicholas Angelo MD [address] [place] [address] PCP - General 08/23/18 Aircraft Maintenance Engineer Relationship Specialty Start Date End Date Nicholas Angelo MD [address] [place] [address] [place] [address] PCP - General 08/23/18 Aircraft Maintenance Engineer Relationship Specialty Start Date End Date Nicholas Angelo MD [address] [facility] [place] [address] PCP - General 08/23/18 Aircraft Maintenance Engineer Relationship Specialty Start Date End Date Nicholas Angelo MD [address] [place], [place] [address], [place] [address] PCP - General 08/23/18 Aircraft Maintenance Engineer Relationship Specialty Start Date End Date Nicholas Angelo MD [address] [place], [place] [address], [place] [address] PCP - General 08/23/18 Aircraft Maintenance Engineer Relationship Specialty Start Date End Date Nicholas Angelo MD [address] [place], [place] [address], [place] [address] PCP - General 08/23/18 Aircraft Maintenance Engineer Relationship Specialty Start Date End Date Nicholas Angelo MD [address] [place] [address] [place] [address] PCP - General 08/23/18 Aircraft Maintenance Engineer Relationship Specialty Start Date End Date Nicholas Angelo MD [address] [place] [address] [place] [address] PCP - General 08/23/18 Aircraft Maintenance Engineer Relationship Specialty Start Date End Date Nicholas Angelo MD [address] [place] [address] [place] [address] PCP - General 08/23/18 Aircraft Maintenance Engineer Relationship Specialty Start Date End Date Nicholas Angelo MD [address] [place] [id number] PCP - General 08/23/18 Aircraft Maintenance Engineer Relationship Specialty Start Date End Date Nicholas Angelo MD [address] [place] [id number] PCP - General 08/23/18 Reason for Visit (unrecogniz ed section and content) Reason Comments Med Refill Reason Comments Hypertension Anxiety Hyperlipidemia Medication Check Specialty Diagnoses / Procedures Referred By Karen ortega Referred To Contact Diagnoses Benign neoplasm of colon, unspecified Appendiceal Orfice polyp Procedures MS LAPAROSCOPIC APPENDECTOMY LAPAROSCOPY APPENDECTOMY Pierre Jordan MD [address] [facility] [address] [place] [address] Referral ID Status Reason Start Date Expiration Date Visits Re quested Visits Authorized [id number] 02/01/2023 1 1 Reason Comments Post-op PO lap appy 02/25 Reason Comments Medicare Annual Wellness Visit Initial Health Maintenance AWV-TodayDM screen-l abs xzbonUmbwve-zsqtxtavNCY-xerqenrz n/tJprq-scsgmkoeXrp-getwgpnqXywaq-declined Hypertension Hyperlipidemia Reason Comments Medication Check Reason Comments Follow-up Reason Comments Medicare Annual Wellness Visit Subsequen t Health Maintenance Zoster Vaccines-decl inedDTaP/Tdap/Td Vaccines-declinedRSV Immunization for Adults-declinedMedicare Advantage Annual Wellness Visit-TODAYInfluenza [id number] Vaccine-declinedDepression Screening-completed Reason Onset Date Comments UTI 08/26/2022 Reason Comments UTI Urinary Frequency Reason Comments Health Maintenance Medication Check Medicare Advantage A nnual Wellness Visit-SCHEDULED 07/18/25 Bone Density Scan-pended- SDOH/PHQ/ANAHY--COMPLETED-SENT VIA [facility] Scheduled Active and Recently Administ ered Medications (unrecognized section and content) Medication Order 02/23/2023 02/24/2023 02/25/2023 acetaminophen (Tylenol) tablet 1,000 mg (COMPLETED) 1,000 mg, Oral, Once, On Aiyana 02/25/23 at 0830, For 1 dose, Preprocedure, Maximum dose of acetaminophen is 4000 mg from all sources in 24 hours. Do not administer if patient has taken tylenol <4 hours earlier. Do not give if contraindicated ie. patient has active liver disease or cirrhosis. 0844 (Given - Provid er: Eugenia Hicks RN) famotidine (Pepcid) tablet 20 mg (COMPLETED) 20 mg, Oral, Once, On Aiyana 02/25/23 at 0830, For 1 dose, Preprocedure 0845 (Given - Provid er: Eugenia Hicks RN) Continuous Medication Order 02/23/2023 02/24/2023 02/25/2023 lactated Ringer's infusion 50 mL/hr, IntraVENous, Continuous, Starting on Aiyana 02/25/23 at 0830, Preprocedure, Upon admission to sameday - please start iv if patient does not have iv access. Use 500ml NS for patients on dialysis. 0842 (New Bag - Prov ider: Eugenia Hicks RN)0901 (Paused - Provider: ASHOK Saul CRNA - Comment: Switch to gravity)0902 (Restarted - Provider: ASHOK Saul CRNA)0940 (Anesthesia Volume Adjustment - Provider: ASHOK Saul CRNA)0948 (Stopped - Provider: ASHOK Saul CRNA) PRN Medication Order 02/23/2023 02/24/2023 02/25/2023 ALPRAZolam (Xanax) disintegrating tablet 0.25 mg 0.25 mg, Oral, PRN, anxiety, Starting on Aiyana 02/25/23 at 0828, For 1 dose, Preprocedure, Using dry hands, place tablet on top of tongue and allow to disintegrate. Administration with water is not necessary. HYDROmorphone (Dilaudid) injection 0.5 mg (CANCELED) 0.5 mg, IntraVENous, Every 5 min PRN, severe pain (7-10), Starting on Aiyana 02/25/23 at 0948, For 4 doses, Recovery (only), Phase I and Phase II- Initial therapy for severe pain (7-10). Restricted to a 90 minute time frame starting when the patient can verbally state their pain score. If after 2 doses the pain score does not decrease by more than one point, then call the provider. If oral meds are utilized, do not return to initial therapy medications. 0954 (Given - Provid er: Wanda Hartman RN) sodium chloride 0.9 % irrigation solution (CANCELED) As needed, Starting on Aiyana 02/25/23 at 0931, Intraprocedure 0931 (Given - Provid er: Pierre Jordan MD - Comment: INTRA PERITONEAL) sodium chloride 0.9% (NS) flush 5-40 mL 5-40 mL, IntraVENous, PRN, line care, After every IV line use, Starting on Aiyana 02/25/23 at 0828, Preprocedure, For Line Patency: Peripheral IV = 5 mL; Midline or Central Line = 10 mL/lumen. If following IV push medication, administer flush at same rate as the IV push. Flush volume is determined by type of infusion therapy being given. For non-viscous solutions use: Peripheral IV = 5 mL Midline or Central Line = 10 mL/lumen For viscous solutions (i.e. blood components, parenteral nutrition, contrast media, or after obtaining blood sample) use: Peripheral IV = 10 mL Midline or Central Line = 20 mL/lumen FOR RECORDS PERTAINING TO PATIENTS WHO ARE OR HAVE BEEN ENROLLED IN A CHEMICAL DEPENDENCY/SUBSTANCEABUSE PROGRAM, SOME INFORMATION MAY BE OMITTED. This clinical summary was aggregated from multiple sources. Caution should be exercised in using it in the provision of clinical care. This summary normalizes information from multiple sources, and as a consequence, information in this document may materially change the coding, format and clinical context of patient data. In addition, data may be omitted in some cases. CLINICAL DECISIONS SHOULD BE BASED ON THE PRIMARY CLINICAL RECORDS. [employer] provides no warranty or guarantee of the accuracy or completeness of information in this document.
== END | disposition home or self-care (01) ==
LOC: LABSPEC 14:11
PROVIDERS: PCP Family Medicine; Referring Provider Urology; Visit Provider Urology
DX: N39.0 Urinary tract infection, site not specified (principal)
CPT/HCPCS: 87077; 87086; 87088; 87186